=== PATIENT | male | born 1950 | race Hispanic/Latino ===

== ENCOUNTER 2019-03-04 08:51 | Inpatient (IN) | payer OTHER ==
--- NOTE | 2019-03-04 09:28 | RAD REPORT ---
EXAM DESCRIPTION: RAD - Chest Single View - 03/04/2019 9:20 am CLINICAL HISTORY: fall Chest pain. COMPARISON: CHEST SINGLE VIEW dated 01/18/2013; CHEST PA AND LAT 2 VIEW dated 03/11/2010; CHEST SINGLE VIEW dated 10/25/2009; ABDOMEN ACUTE SERIES dated 09/06/2005 FINDINGS: Portable technique limits examination quality. The lungs appear underinflated with mild elevation of the right hemidiaphragmatic leaflet. The heart is normal in size. No displaced fractures.
[2019-03-04] MEDS ORDERED: HYDRALAZINE HCL 20 MG/ML VIAL ONE (09:33)
[2019-03-04 09:39] LABS: Absolute Lymphocytes (CBC) 2.4 K/uL (0.7-4.9); Basophils % 0.4 % (0-1.3); Eosinophils % 0.2 % (0-4.4); Hematocrit 46.1 % (39.6-49.0); Lymphocytes % 26.9 % (15.3-44.8); MPV 9.1 fL (7.6-11.3); Monocytes % 19.8 % (3.3-12.3); RBC Red Blood Cell Count 4.63 M/uL (4.33-5.43)
[2019-03-04 09:40] LABS: Protime INR 1.02
[2019-03-04 10:01] LABS: ALT/SGPT 26 U/L (12-78); AST/SGOT 26 U/L (15-37); Albumin 3.8 g/dL (3.4-5.0); Alkaline Phosphatase 69 U/L (45-117); BUN Blood Urea Nitrogen 28 mg/dL (7-18); Bicarbonate 29 mmol/L (21-32); Bilirubin Direct 0.2 mg/dL (0-0.2); Bilirubin Total 0.7 mg/dL (0.2-1.0); Glucose Level 99 mg/dL (74-106); Magnesium 1.8 mg/dL (1.8-2.4); NT PRO-BNP 236 pg/mL (<125); Protein, Total 7.9 g/dL (6.4-8.2); Sodium Level 138 mmol/L (136-145); Troponin (Emerg Dept Use Only) < 0.02 ng/mL (0.0-0.045)
[2019-03-04 10:16] LABS: Blood Morphology Comment NOT SEEN (NOT SEEN); Platelet Estimate ADEQ
[2019-03-04 10:24] LABS: Potassium 5.6 mmol/L (3.5-5.1)
--- NOTE | 2019-03-04 10:51 | EDPHYS ---
Physician Documentation [facility] Name: Geraldo Solis Age: 68 yrs Sex: Male : 1950 Arrival Date: 03/04/2019 Time: 08:54 Bed 2 Private MD: ED Physician Gilbert Anthony HPI: 03/04 09:05 This 68 yrs old Male presents to ER via EMS with complaints of General cp Weakness. 09:05 Details of fall: The patient fell from an upright position, while standing. cp 09:05 Onset: The symptoms/episode began/occurred today. Associated injuries: The patient cp sustained no obvious injury. Patient c/o general weakness. Historical: - Allergies: 08:59 No Known Allergies; sv - Home Meds: 12:15 atorvastatin 20 mg Oral tab 1 tab once daily [Active]; carbidopa-levodopa 25-100 mg ae4 Oral tab 1 tab 3 times per day [Active]; repaglinide 2 mg Oral tab 1 tab 2 times per day [Active]; - PMHx: 08:59 Parkinsons; Bipolar disorder; sv - PSHx: 08:59 left knee; arm surgery - right; sv - Immunization history:: Adult Immunizations up to date. - Social history:: Smoking status: Patient/guardian denies using tobacco, Patient/guardian denies using. - Ebola Screening: : Patient negative for fever greater than or equal to 101.5 degrees Fahrenheit, and additional compatible Ebola Virus Disease symptoms Patient denies travel to an Ebola-affected area in the 21 days before illness onset. ROS: 09:10 Constitutional: Negative for body aches, chills, fever, poor PO intake. cp 09:10 Eyes: Negative for injury, pain, redness, and discharge. cp 09:10 ENT: Negative for drainage from ear(s), ear pain, sore throat, difficulty swallowing, difficulty handling secretions. 09:10 Cardiovascular: Negative for chest pain, edema. 09:10 Respiratory: Negative for cough, shortness of breath, wheezing. 09:10 Abdomen/GI: Negative for abdominal pain, nausea, vomiting, and diarrhea, constipation, anorexia, black/tarry stool, rectal bleeding. 09:10 Back: Negative for pain at rest, pain with movement. 09:10 : Negative for urinary symptoms. 09:10 Skin: Negative for cellulitis, rash. 09:10 Neuro: Positive for general weakness, Negative for altered mental status, headache, loss of consciousness, syncope. 09:10 All other systems are negative. Exam: 09:20 Constitutional: The patient appears in no acute distress, alert, awake, cp non-diaphoretic, non-toxic, well developed, well nourished. 09:20 Head/Face: Normocephalic, atraumatic. cp 09:20 Eyes: Periorbital structures: appear normal, Pupils: equal, round, and reactive to light and accomodation, Extraocular movements: intact throughout, Conjunctiva: normal, no exudate, no injection, Sclera: no appreciated abnormality, Lids and lashes: appear normal, bilaterally. 09:20 ENT: External ear(s): are unremarkable, Ear canal(s): are normal, clear, TM's: are normal, no evidence of bulging, no erythema, Nose: is normal, Mouth: Lips: moist, Oral mucosa: pink and intact, moist, Posterior pharynx: is normal, airway is patent, no erythema, no exudate. 09:20 Neck: C-spine: vertebral tenderness, is not appreciated, crepitus, is not appreciated, ROM/movement: is normal, is supple, without pain, no range of motions limitations, no nuchal rigidity. 09:20 Chest/axilla: Inspection: normal, Palpation: is normal, no crepitus, no tenderness. 09:20 Cardiovascular: Rate: actual rate is 62 bpm, Rhythm: regular, Edema: is not appreciated, JVD: is not appreciated. 09:20 Respiratory: the patient does not display signs of respiratory distress, Respirations: normal, no use of accessory muscles, no retractions, no splinting, no tachypnea, labored breathing, is not present, Breath sounds: are clear throughout, no decreased breath sounds, no stridor, no wheezing. 09:20 Abdomen/GI: Inspection: abdomen appears normal, Bowel sounds: active, all quadrants, Palpation: abdomen is soft and non-tender, in all quadrants, rebound tenderness, is not appreciated, involuntary guarding, is not appreciated. 09:20 Back: pain, is absent, ROM is normal. 09:20 Skin: no rash present. 09:20 Neuro: Orientation: to person, place \T\ time. Mentation: is normal, Motor: moves all fours, general weakness w/o focal deficits, Sensation: no obvious gross deficits, Abnormal movements: resting tremor, is located in the right arm and left arm. 10:01 ECG was reviewed by the Attending Physician. Vital Signs: 08:59 BP 166 / 47; Pulse 62; Resp 18; Pulse Ox 99% ; sv 09:02 Temp 97.4(T); ms 09:51 BP 107 / 83; Pulse 63; Resp 22; Pulse Ox 99% on R/A; tw2 10:45 BP 131 / 90; Pulse 53; Resp 19; Pulse Ox 95% on R/A; ae4 11:15 BP 104 / 79; Pulse 57; Resp 18; Pulse Ox 96% on R/A; ae4 12:16 BP 112 / 78; Pulse 59; Resp 18; Pulse Ox 100% on R/A; ae4 MDM: 08:54 Patient medically screened. 10:40 Data reviewed: vital signs, nurses notes, lab test result(s), EKG, radiologic studies, cp plain films. 10:40 Test interpretation: by ED physician or midlevel provider: ECG, plain radiologic cp studies. Counseling: I had a detailed discussion with the patient and/or guardian regarding: the historical points, exam findings, and any diagnostic results supporting the discharge/admit diagnosis, lab results, radiology results, the need for further work-up and treatment in the hospital. 10:41 Physician consultation: Fernando Stone DO was called at 10:41, was contacted at 10:41, regarding admission, to the telemetry unit. patient's condition, and will see patient in ED. 03/04 09:02 Order name: Basic Metabolic Panel; Complete Time: 10:26 03/04 10:40 Interpretation: Normal except: BUN 28; GFR 60. 03/04 09:02 Order name: CBC with Diff; Complete Time: 10:26 03/04 09:47 Interpretation: Normal except: MCV 99.4; PLT 144; MN% 19.8; MNA 1.8. 03/04 09:02 Order name: LFT's; Complete Time: 10:26 03/04 09:02 Order name: Magnesium; Complete Time: 10:26 03/04 09:02 Order name: NT PRO-BNP; Complete Time: 10:26 03/04 10:30 Interpretation: Abnormal: NT PRO-BNP 236. cp 03/04 09:02 Order name: PT-INR; Complete Time: 10:26 03/04 09:02 Order name: Troponin (emerg Dept Use Only); Complete Time: 10:26 03/04 09:02 Order name: XRAY Chest (1 view); Complete Time: 09:47 03/04 09:05 Order name: Urine Microscopic Only 03/04 09:49 Order name: Urine Dipstick--Ancillary (enter results) 03/04 10:18 Order name: Manual Differential; Complete Time: 10:26 EDMS 03/04 09:02 Order name: EKG; Complete Time: 09:04 03/04 09:02 Order name: Cardiac monitoring; Complete Time: 09:04 03/04 09:02 Order name: EKG - Nurse/Tech; Complete Time: 09:04 03/04 09:02 Order name: IV Saline Lock; Complete Time: 09:04 03/04 09:02 Order name: Labs collected and sent; Complete Time: 09:05 03/04 09:02 Order name: O2 Per Protocol; Complete Time: 09:05 03/04 09:02 Order name: O2 Sat Monitoring; Complete Time: 09:05 03/04 09:05 Order name: Urine Dipstick-Ancillary (obtain specimen); Complete Time: 09:44 03/04 11:03 Order name: EKG Electrocardiogram; Complete Time: 11:08 EDMS EC:01 Rate is 59 beats/min. QRS interval is normal. QT interval is normal. Interpreted by me. cp Reviewed by me. Administered Medications: 09:19 Drug: hydrALAZINE 5 mg Route: IV; Rate: bolus; Site: right antecubital; ae4 09:35 Follow up: IV Status: Completed infusion ae4 11:04 Drug: Albuterol 2.5 mg Route: Inhalation; ae4 11:07 Drug: D50W 50 ml Route: IVP; Site: right antecubital; ae4 13:18 Follow up: Response: No adverse reaction tw2 11:13 Drug: Lasix 20 mg Route: IVP; Site: right antecubital; ae4 11:52 Follow up: Response: Other; 200 mls urine output in urinal ae4 11:13 Drug: NS 0.9% 250 ml Route: IV; Rate: bolus; Site: right antecubital; ae4 11:51 Follow up: IV Status: Completed infusion ae4 11:15 Drug: Insulin Regular Human 5 units {Co-Signature: tw2 (Amarilis Clemons RN).} Route: IVP; ae4 Site: right antecubital; 13:19 Follow up: Response: No adverse reaction tw2 11:24 Drug: Kayexalate 30 grams Route: PO; ae4 12:25 Follow up: Response: Other; No bowel at time prior to admission to floor. ae4 11:25 Drug: Albuterol 2.5 mg Route: Inhalation; ae4 11:25 Drug: Albuterol 2.5 mg Route: Inhalation; ae4 11:40 Drug: NS 0.9% 1000 ml Route: IV; Rate: 100 ml/hr; Site: right antecubital; ae4 12:25 Follow up: 900 mls urine output in urinal ae4 12:26 Follow up: IV Status: Infusion continued upon admission ae4 13:08 Follow up: IV Status: Infusion continued upon admission tw2 Disposition: 03/05 07:35 Co-signature as Attending Physician, Gilbert Anthony MD I agree with the assessment and kdr plan of care. Disposition: 03/04/19 10:50 Hospitalization ordered by Fernando Stone for Observation. Preliminary diagnosis are Unspecified atrial flutter, Hyperkalemia. - Bed requested for Telemetry/MedSurg (observation). - Status is Observation. tw2 - Condition is Stable. - Problem is new. - Symptoms have improved. UTI on Admission? No Signatures: Dispatcher [employer] EDMS Bárbara Alexander RN RN sv Rittger, Kevin, MD MD kdr Juliocesar San PA PA cp Wise, Tara, RN RN tw2 Natalie Vigil Andrea, RN RN ae4 Amarilis Clemons RN tw2 Corrections: (The following items were deleted from the chart) 03/04 09:47 09:47 Normal except: MCV 99.4; PLT 144; MN% 19.8. cp cp 10:40 10:27 Normal except: K 5.6; BUN 28; GFR 60. cp cp 12:10 10:50 Hospitalization Ordered by Fernando Stone DO for Observation. Preliminary eb diagnosis is Unspecified atrial flutter; Hyperkalemia. Bed requested for Telemetry/MedSurg (observation). Status is Observation. Condition is Stable. Problem is new. Symptoms have improved. UTI on Admission? No. cp 13:19 12:10 03/04/2019 10:50 Hospitalization Ordered by Fernando Stone DO for Observation. tw2 Preliminary diagnosis is Unspecified atrial flutter; Hyperkalemia. Bed requested for Telemetry/MedSurg (observation). Status is Observation. Condition is Stable. Problem is new. Symptoms have improved. UTI on Admission? No. eb
--- NOTE | 2019-03-04 10:51 | ER ---
Nurse's Notes [facility] Name: Geraldo Solis Age: 68 yrs Sex: Male : 1950 Arrival Date: 03/04/2019 Time: 08:54 Bed 2 Private MD: Diagnosis: Unspecified atrial flutter;Hyperkalemia Presentation: 03/04 08:47 Presenting complaint: EMS states: called out for lift assist at first and did vitals on sv pt. Manual BP 180/100 HR-50-200 O2 sat 90-95%, A\T\O x4. Transition of care: patient was not received from another setting of care. Onset of symptoms was March 04, 2019. Care prior to arrival: Glucose check: 92. 08:47 Method Of Arrival: EMS: [facility] sv 08:47 Acuity: MARKO 3 sv 12:13 Risk Assessment: Do you want to hurt yourself or someone else? Patient reports no ae4 desire to harm self or others. Initial Sepsis Screen: Does the patient meet any 2 criteria? No. Patient's initial sepsis screen is negative. Does the patient have a suspected source of infection? No. Patient's initial sepsis screen is negative. Triage Assessment: 12:11 General: Appears uncomfortable, slender, Behavior is cooperative, Patient's hands are ae4 shaking, patient also states he has Parkinson's.. Pain: Denies pain. EENT: No signs and/or symptoms were reported regarding the EENT system. Neuro: Level of Consciousness is awake, alert, obeys commands, Oriented to person, place, situation, Appropriate for age. Cardiovascular: Heart tones S1 S2 present Skin is cool and dry. Respiratory: Airway is patent Respiratory effort is even, unlabored, Respiratory pattern is regular, symmetrical. GI: Abdomen is round. : Urine is clear, Cathleen. Derm: Skin is pale. Musculoskeletal: Reports Overall weakness and stumbling over the last few days. Historical: - Allergies: 08:59 No Known Allergies; sv - Home Meds: 12:15 atorvastatin 20 mg Oral tab 1 tab once daily [Active]; carbidopa-levodopa 25-100 mg ae4 Oral tab 1 tab 3 times per day [Active]; repaglinide 2 mg Oral tab 1 tab 2 times per day [Active]; - PMHx: 08:59 Parkinsons; Bipolar disorder; sv - PSHx: 08:59 left knee; arm surgery - right; sv - Immunization history:: Adult Immunizations up to date. - Social history:: Smoking status: Patient/guardian denies using tobacco, Patient/guardian denies using. - Ebola Screening: : Patient negative for fever greater than or equal to 101.5 degrees Fahrenheit, and additional compatible Ebola Virus Disease symptoms Patient denies travel to an Ebola-affected area in the 21 days before illness onset. Screenin:15 Abuse screen: Denies threats or abuse. Nutritional screening: No deficits noted. ae4 Tuberculosis screening: No symptoms or risk factors identified. Fall Risk No fall in past 12 months (0 pts). No secondary diagnosis (0 pts). IV access (20 points). Ambulatory Aid- None/Bed Rest/Nurse Assist (0 pts). Gait- Weak (10 pts.). Mental Status- Oriented to own ability (0 pts). Assessment: 09:52 Reassessment: Patient appears in no apparent distress at this time. Patient and/or tw2 family updated on plan of care and expected duration. Pain level reassessed. Patient is alert, oriented x 3, equal unlabored respirations, skin warm/dry/pink. 10:10 Reassessment: Patient appears more relaxed, and daughter at bedside. Patient ae4 states feeling better. Patient states symptoms have improved. 11:57 Reassessment: Patient and/or family updated on plan of care and expected duration. Pain ae4 level reassessed. Urine output of 200mls in urinal. Daughter at bedside. Patient states feeling better. Patient states symptoms have improved. 12:18 Reassessment: Patient states feeling better. Neuro: Level of Consciousness is awake, ae4 alert, obeys commands. 12:19 Reassessment: Patient and/or family updated on plan of care and expected duration. Pain ae4 level reassessed. Patient is alert, oriented x 3, equal unlabored respirations, skin warm/dry/pink. 12:24 Reassessment: 900 mls urine output in urinal. ae4 12:33 Reassessment: Called 4th floor to give report to receiving nursePanchito will be the nurse and just left for lunch to wait a few minutes. Vital Signs: 08:59 BP 166 / 47; Pulse 62; Resp 18; Pulse Ox 99% ; sv 09:02 Temp 97.4(T); ms 09:51 BP 107 / 83; Pulse 63; Resp 22; Pulse Ox 99% on R/A; tw2 10:45 BP 131 / 90; Pulse 53; Resp 19; Pulse Ox 95% on R/A; ae4 11:15 BP 104 / 79; Pulse 57; Resp 18; Pulse Ox 96% on R/A; ae4 12:16 BP 112 / 78; Pulse 59; Resp 18; Pulse Ox 100% on R/A; ae4 ED Course: 08:54 Patient arrived in ED. ae4 08:54 Juliocesar San PA is PHCP. cp 08:54 Gilbert Anthony MD is Attending Physician. cp 08:59 Triage completed. sv 09:01 Initial lab(s) drawn, by me, sent to lab. EKG done, by ED staff, reviewed by Gilbert Anthony MD. Inserted saline lock: 22 gauge in right antecubital area, using aseptic technique. Blood collected. Missed attempt(s): 22 gauge in left antecubital area. Bleeding controlled, band aid applied, catheter tip intact. 09:02 Arm band placed on. sv 09:13 Duncan Salter, YEYO is Primary Nurse. ae4 09:22 XRAY Chest (1 view) In Process Unspecified. EDMS 09:46 Urine collected: clean catch specimen, clear. ms 10:15 Placed in gown. Bed in low position. Call light in reach. Side rails up X 1. Adult w/ ae4 patient. hall monitor on. Pulse ox on. NIBP on. Warm blanket given. 10:49 Fernando Stone DO is Hospitalizing Provider. cp 10:59 Repeat ekg was done. sm3 13:07 No provider procedures requiring assistance completed. Patient admitted, IV remains in tw2 place. Administered Medications: 09:19 Drug: hydrALAZINE 5 mg Route: IV; Rate: bolus; Site: right antecubital; ae4 09:35 Follow up: IV Status: Completed infusion ae4 11:04 Drug: Albuterol 2.5 mg Route: Inhalation; ae4 11:07 Drug: D50W 50 ml Route: IVP; Site: right antecubital; ae4 13:18 Follow up: Response: No adverse reaction tw2 11:13 Drug: Lasix 20 mg Route: IVP; Site: right antecubital; ae4 11:52 Follow up: Response: Other; 200 mls urine output in urinal ae4 11:13 Drug: NS 0.9% 250 ml Route: IV; Rate: bolus; Site: right antecubital; ae4 11:51 Follow up: IV Status: Completed infusion ae4 11:15 Drug: Insulin Regular Human 5 units {Co-Signature: tw2 (Amarilis Clemons RN).} Route: IVP; ae4 Site: right antecubital; 13:19 Follow up: Response: No adverse reaction tw2 11:24 Drug: Kayexalate 30 grams Route: PO; ae4 12:25 Follow up: Response: Other; No bowel at time prior to admission to floor. ae4 11:25 Drug: Albuterol 2.5 mg Route: Inhalation; ae4 11:25 Drug: Albuterol 2.5 mg Route: Inhalation; ae4 11:40 Drug: NS 0.9% 1000 ml Route: IV; Rate: 100 ml/hr; Site: right antecubital; ae4 12:25 Follow up: 900 mls urine output in urinal ae4 12:26 Follow up: IV Status: Infusion continued upon admission ae4 13:08 Follow up: IV Status: Infusion continued upon admission tw2 Intake: Outcome: 10:50 Decision to Hospitalize by Provider. cp 13:07 Admitted to Med/surg accompanied by tech, via wheelchair, room 419, Report called to tw2 YEYO Garcia 13:07 Condition: stable 13:07 Instructed on the need for admit. 13:19 Patient left the ED. tw2 Signatures: Dispatcher [employer] EDMS Bárbara Alexander RN RN sv Solis, Maria ms Juliocesar San, PA PA cp Amarilis Clemons RN RN tw2 Yakelin Cason [facility] Duncan Salter RN RN ae4 Amarilis Clemons RN tw2 Corrections: (The following items were deleted from the chart) 12:19 12:18 Reassessment: No changes from previously documented assessment. Patient and/or ae4 family updated on plan of care and expected duration. Pain level reassessed. ae4
[2019-03-04 11:13] LABS: Urine Bacteria <20 /HPF (NONE SEEN); Urine Culture Reflex Order NOT NEEDED; Urine RBC <5 /HPF (NONE SEEN)
[2019-03-04] MEDS ORDERED: FUROSEMIDE 20 MG/ 2ML VIAL ONE (11:15)
[2019-03-04] MEDS ORDERED: INSULIN -REGULAR HUMAN 50 UNIT/0.5 ML ML ONE (11:16)
[2019-03-04] MEDS ORDERED: SOD POLYSTYREN SUL 15 GM/60 ML UCUP ONE (11:16)
[2019-03-04] MEDS ORDERED: ALBUTEROL 2.5 MG/3 ML NEB SOL ONE (11:16)
[2019-03-04] MEDS ORDERED: D50W 25 GM/50 ML SYRINGE IV ONE (11:17)
[2019-03-04] MEDS ORDERED: NA CHLORIDE 0.9% 1,000 ML ONE (11:26)
--- NOTE | 2019-03-04 12:04 | P.HP ---
Certification for Inpatient Patient admitted to: Observation With expected LOS: <2 Midnights Patient will require the following post-hospital care: Home Health Services Practitioner: I am a practitioner with admitting privileges, knowledge of patient current condition, hospital course, and medical plan of care. Services: Services provided to patient in accordance with Admission requirements found in Title 42 Section 412.3 of the Code of Federal Regulations Patient History Date of Service: 03/04/19 Primary Care Provider: Dr. Mueller; [facility] Reason for admission: Fatigue, poor intake History of Present Illness: 68-year-old male presents to the emergency room with fatigue and poor intake. Patient with history of diabetes, bipolar disorder, Parkinson's, dementia and hypertension. Patient reports increased fatigue over the last week. He has been sleeping a lot. He denies any chest pain, shortness of breath. He has not been able to ambulate well. Patient denies any nausea, vomiting, diarrhea or constipation. Medications had been recently adjusted. This includes carbidopa levodopa. Due to his lack of appetite and increased fatigue patient came to the ER for further evaluation. In the ER patient evaluated. Patient was found to have a flutter with AV conversion. Patient was monitored and patient converted to normal sinus rhythm without medication. Lab shows white count 9.0, hemoglobin 15. Sodium 138, potassium 5.6. BUN of 28, creatinine 1.2 with a GFR 60. Glucose 99. Chest x- ray unremarkable. Urinalysis unremarkable. Troponin unremarkable. Patient was given medication for elevated potassium. Patient was admitted for evaluation and treatment When I saw the patient the ER, he appeared weak. at bedside. Patient in normal sinus rhythm. No prior history of atrial fibrillation. He reports having a heart catheterization about 5 years ago which was negative. He denies any palpitations. Allergies No Known Allergies Allergy (Unverified 11/08/11 10:08) Home medications list reviewed: Yes Home Medications: Atorvastatin Calcium [Lipitor*] 10 mg PO DAILY 01/18/13 Citalopram [Celexa*] 40 mg PO DAILY 01/18/13 Divalproex Sodium [Depakote ER] 1,500 mg PO BEDTIME 01/18/13 Divalproex Sodium [Depakote ER] 250 mg PO BEDTIME 01/18/13 Furosemide [Lasix*] 40 mg PO DAILY 01/18/13 Glimepiride [Amaryl*] 2 mg PO DAILY 01/18/13 Irbesartan [Avapro*] 150 mg PO DAILY 01/18/13 Risperidone [Risperdal] 2 mg PO BEDTIME 01/18/13 Saxagliptin HCl/Metformin HCl [Kombiglyze Xr 5-1,000 mg Tab] 1 each PO DAILY Rivaroxaban [Xarelto*] 15 mg PO BID #0 tablet 01/20/13 - Past Medical/Surgical History Diabetic: Yes -: Diabetes mellitus type 2 -: Hypertension -: Parkinson's -: Bipolar disorder -: Dementia -: Arm surgery -: Left knee replacement Psychosocial/ Personal History: Patient is . Lives at home. Patient has home care provider. - Family History Family History: Reviewed- Non-Contributory - Family History Mother -: Other (see notes) (Parkinson's) - Social History Smoking Status: Never smoker Alcohol use: No CD- Drugs: No Caffeine use: Yes Place of Residence: Home Review of Systems General: Weakness, As per HPI Eyes: Unremarkable ENT: Unremarkable Respiratory: Unremarkable Cardiovascular: As per HPI Gastrointestinal: Unremarkable Genitourinary: Unremarkable Musculoskeletal: Unremarkable Integumentary: Unremarkable Neurological: Weakness, As per HPI Lymphatics: Unremarkable Physical Examination - Physical Exam General: Alert, In no apparent distress, Oriented x3, Cooperative HEENT: Atraumatic, Normocephalic, PERRLA, Other (Dry mucous membranes and lips) Neck: Supple, No Thyromegaly Respiratory: Clear to auscultation bilaterally, Normal air movement Cardiovascular: Normal pulses, Regular rate/rhythm Gastrointestinal: Normal bowel sounds, Soft and benign, Non-distended, No tenderness, No masses, No rebound, No guarding Musculoskeletal: No erythema, No tenderness, No warmth Integumentary: No tenderness/swelling, No erythema, No warmth, No cyanosis, Other (Dry skin) Neurological: Normal speech, Normal strength at 5/5 x4 extr, Normal tone, Normal affect, Other (cogwheel rigidity. Mild tremor) - Studies Laboratory Data (last 24 hrs) 03/04/19 09:21: PT 12.0, INR 1.02 03/04/19 09:21: WBC 9.0, Hgb 15.7, Hct 46.1, Plt Count 144 L 03/04/19 09:21: Sodium 138, Potassium 5.6 H*, BUN 28 H, Creatinine 1.20, Glucose 99, Magnesium 1.8, Total Bilirubin 0.7, AST 26, ALT 26, Alkaline Phosphatase 69 Assessment and Plan - Plan Impression: Fatigue secondary to new onset paroxysmally atrial fibrillation now normal sinus rhythm Dehydration with poor oral intake Hypertension Diabetes mellitus type 2 Parkinson's Bipolar disorder Dementia Peripheral vascular disease Plan: Fatigue secondary to new onset paroxysmally atrial fibrillation now normal sinus rhythm: Will admit the patient to further evaluate. Patient now in normal sinus rhythm. Patient appears stable but dry. Will start IV fluids. Will check echocardiogram. Cardiology consulted to further evaluate. Will start Lovenox at 1 milligram/kilogram subcu twice daily. Await further recommendations from cardiology. Will restart his propanolol that he takes for hypertension and Parkinson's. Dehydration with poor oral intake: Will provide IV fluids. Will provide supplementation. Encourage oral intake. Hypertension: Continue medication Diabetes mellitus type 2: Monitor accuchecks. Parkinson's: Continue meds. Bipolar disorder: Continue meds Dementia: Continue meds Peripheral vascular disease: Continue meds Discharge Plan: Home Plan to discharge in: 24 Hours - Advance Directives Does patient have a Living Will: No Does patient have a Durable POA for Healthcare: No - Code Status/Comfort Care Code Status Assessed: Yes (patient is full code) Time Spent Managing Pts Care (In Minutes): 55
[2019-03-04] MEDS ORDERED: ONDANSETRON 4 MG/2 ML VIAL IV PRN (13:16)
[2019-03-04] MEDS: INSULIN -REGULAR HUMAN 50 UNIT/0.5 ML ML SQ SCH ×3 (13:16→20:24)
[2019-03-04] MEDS ORDERED: DIVALPROEX ER 250 MG TAB PO SCH (13:16)
[2019-03-04] MEDS ORDERED: ACETAMINOPHEN 500 MG TAB PO PRN (13:16)
[2019-03-04] MEDS ORDERED: MAGNESIUM SULFATE 1 gm IVPB 1 GM/100 ML BAG IV ONE (13:22)
[2019-03-04] MEDS ORDERED: D50W 25 GM/50 ML SYRINGE IV PRN (13:23)
[2019-03-04] MEDS ORDERED: GLUCAGON 1 MG/VIAL IM PRN (13:23)
[2019-03-04] MEDS: NA CHLORIDE 0.9% 1,000 ML IV SCH (13:35)
[2019-03-04] MEDS: ENSURE ENLIVE 237 ML CAN PO SCH ×2 (13:35→20:17)
[2019-03-04 13:41] VITALS: BMI 29.7
--- NOTE | 2019-03-04 13:50 | EKG ---
Test Date: 2019-03-04 Test Time: 10:34:08 Timber Trimmer: IVAN MEASUREMENT RESULTS: Intervals: Rate: 58 SC: 162 QRSD: 76 QT: 396 QTc: 388 [place]: P: 37 SC: 162 QRS: 0 T: 104 INTERPRETIVE STATEMENTS: Sinus bradycardia Inferior infarct, age undetermined Possible Anterolateral infarct, age undetermined Abnormal ECG Compared to ECG 03/04/2019 08:50:26 Atrial flutter no longer present Left-axis deviation no longer present Myocardial infarct finding still present Electronically Signed On 03-04-19 13:49:38 CDT by Jamal Young
--- NOTE | 2019-03-04 13:51 | EKG ---
Test Date: 2019-03-04 Test Time: 08:50:26 Professor Of Surgery: ISABEL MEASUREMENT RESULTS: Intervals: Rate: 59 NV: QRSD: 66 QT: 418 QTc: 413 [place]: P: -12 NV: QRS: -36 T: 111 INTERPRETIVE STATEMENTS: Sinus bradycardia Low voltage QRS Left axis deviation Inferior infarct, age undetermined Anterolateral infarct, age undetermined Abnormal ECG Compared to ECG 01/18/2013 08:13:43 Left-axis deviation now present Myocardial infarct finding now present Sinus rhythm no longer present Electronically Signed On 03-04-19 13:50:36 CDT by Jamal Young
[2019-03-04 14:01] LABS: Thyroid Stimulating Hormone 2.74 uIU/mL (0.360-3.740)
[2019-03-04] MEDS ORDERED: PNEUMOCOCCAL VACCINE 0.5 ML IMVAC ONE (15:00)
[2019-03-04] MEDS: ENOXAPARIN 80 MG/0.8 ML SQ SCH ×2 (15:01→21:00)
--- NOTE | 2019-03-04 15:02 | EKG ---
Test Date: 2019-03-04 Test Time: 13:52:00 Drafting Layout Man: IVAN MEASUREMENT RESULTS: Intervals: Rate: 58 SC: 150 QRSD: 72 QT: 424 QTc: 416 [place]: P: 27 SC: 150 QRS: -57 T: 116 INTERPRETIVE STATEMENTS: Sinus bradycardia Left axis deviation Inferior infarct, age undetermined Anterolateral infarct, age undetermined Abnormal ECG Compared to ECG 03/04/2019 10:34:08 Left-axis deviation now present Myocardial infarct finding still present Electronically Signed On 03-04-19 15:01:36 CDT by Jamal Young
[2019-03-04 15:11] LABS: Urine Appearance CLEAR; Urine Bilirubin NEGATIVE (NEG); Urine Blood NEGATIVE (NEG); Urine Color YELLOW; Urine Glucose NEGATIVE (NEG); Urine Protein NEGATIVE (NEG); Urine Specific Gravity <=1.005 (1.005-1.030); Urine pH 5.5 (5.0-7.0)
[2019-03-04 15:16] LABS: Urine Microscopic Reflex NO UMIC
--- NOTE | 2019-03-04 15:21 | ECHO ---
HEIGHT: 5 ft 3 in WEIGHT: 168 lb 0 oz DATE OF STUDY: 03/04/[address]: Fernando Stone DO 2-DIMENSIONAL: YES M.MODE: YES DOPPLER: YES COLOR FLOW: YES TDS: NO PORTABLE: NO DEFINITY: NO BUBBLE STUDY: NO DIAGNOSIS: ATRIAL FIBRILLATION CARDIAC HISTORY: CATHERIZATION: NO SURGERY: NO PROSTHETIC VALVE: NO PACEMAKER: NO MEASUREMENTS (cm) DIASTOLIC (NORMALS) SYSTOLIC (NORMALS) IVSd 1.0 (0.6-1.2) LA Diam 3.9 (1.9-4.0) LVEF 76% LVIDd 4.0 (3.5-5.7) LVIDs 2.2 (2.0-3.5) %FS 44% LVPWd 1.0 (0.6-1.2) Ao Diam 2.8 (2.0-3.7) 2 DIMENSIONAL ASSESSMENT: RIGHT ATRIUM: NORMAL LEFT ATRIUM: NORMAL RIGHT VENTRICLE: NORMAL LEFT VENTRICLE: NORMAL TRICUSPID VALVE: NORMAL MITRAL VALVE: NORMAL PULMONIC VALVE: NORMAL AORTIC VALVE: NORMAL PERICARDIAL EFFUSION: NONE AORTIC ROOT: NORMAL LEFT VENTRICULAR WALL MOTION: NORMAL. DOPPLER/COLOR FLOW: PHYSIOLOGICAL TRICUSPID REGURGITATION. NORMAL RIGHT VENTRICULAR SYSTOLIC PRESSURE. COMMENTS: NORMAL 2D ECHOCARDIOGRAPHY WITH DOPPLER. NORMAL SINUS RHYTHM. TECHNOLOGIST: [facility]
[2019-03-04 16:00] LABS: CKMB Creatine Kinase MB < 1.0 ng/mL (0.3-3.6); Creatine Phosphokinase 47 U/L (39-308); Troponin I < 0.02 ng/mL (0.0-0.045)
--- NOTE | 2019-03-04 18:51 | CON ---
History Of Present Illness: Mr. Solis is 68. He is brought to the hospital because he fell. I am ask ed to see him because the ER doctors say he had atrial fib but is not recorded on any rhythm strips a t least any that I could see. The patient has no history of heart disease. No history of atrial fib rillation. He has had Parkinson disease for some time. He has become very depressed, bedridden now. He spends most of his time sleeping. When he gets up he is very lightheaded and dizzy, often falls . When his Parkinson disease specialist, Dr. Arnold in [place] heard this, he reduced the dose of his carbidopa/levodopa, but it has not made much difference. The patient takes citalopram, atorvasta tin, Seroquel, metformin, divalproex, ipratropium, carbidopa/levodopa, rivastigmine and propranolol. He has never had myocardial infarction, stroke, or bypass surgery. Uses no tobacco and he has a mil d case of diabetes, taking metformin alone. Blood sugars do not seem to be a problem controlling the m, keeping them in normal range. Denies having chest pain. When he stands up, he often gets lighthe aded. Physical Examination: General: He is 5 feet 3 inches, 168 pounds. He is alert, oriented, pleasant, cooperative, admits to being very depressed. HEENT: Normal. Lungs: Clear. Heart: Exam is within normal limits. Neuro: Reveals very depressed affect. Mild non-intention pablito mor consistent with Parkinson disease. His EKG shows low voltage, possible old anterior inferior inf arcts, could be pseudo-infarcts related to the low voltage. Impression: The patient probably has orthostatic hypotension. I am not sure if he has atrial fibril lation or not. Certainly, it is possible but there is none recorded on anything to take action on Mr Kristi Soils who falls so much he would not be a candidate for taking long-term anticoagulation as I would recommend against that. If we see that he has paroxysmal atrial fibrillation, we could try to suppre ss it, but I would not go further than having him take aspirin as an anticoagulant based on his high risk of having trouble from bleeding if he were to fall. I think we should check orthostatic vital signs, consider giving him a medicine shot such as ProAmati ne to support his blood pressure. SH/MODL Voice ID: [id number] Report ID: [id number]
[2019-03-04] MEDS: QUETIAPINE 100MG TAB PO SCH (20:16)
[2019-03-04] MEDS: DIVALPROEX ER 250 MG TAB PO SCH (20:16)
[2019-03-04] MEDS: MEMANTINE HCL 10 MG TABLET PO SCH (20:16)
[2019-03-04] MEDS: ATORVASTATIN 10 MG TAB PO SCH (20:17)
[2019-03-04] MEDS: RIVASTIGMINE TARTRATE 1.5 MG PO SCH (20:21)
[2019-03-04 23:53] LABS: CKMB Creatine Kinase MB < 1.0 ng/mL (0.3-3.6); Creatine Phosphokinase 38 U/L (39-308); Troponin I < 0.02 ng/mL (0.0-0.045)
[2019-03-05] MEDS: NA CHLORIDE 0.9% 1,000 ML IV SCH (00:35)
[2019-03-05] MEDS ORDERED: ENOXAPARIN 80 MG/0.8 ML SQ SCH (03:00)
[2019-03-05 06:07] LABS: Absolute Lymphocytes (CBC) 2.9 K/uL (0.7-4.9); Basophils % 0.4 % (0-1.3); Eosinophils % 0.4 % (0-4.4); Hematocrit 40.9 % (39.6-49.0); Lymphocytes % 44.7 % (15.3-44.8); MPV 9.8 fL (7.6-11.3); RBC Red Blood Cell Count 4.16 M/uL (4.33-5.43)
[2019-03-05 06:10] LABS: Monocytes % 20.3 % (3.3-12.3)
[2019-03-05 06:15] LABS: Magnesium 2.2 mg/dL (1.8-2.4); Potassium 4.3 mmol/L (3.5-5.1)
[2019-03-05] MEDS: INSULIN -REGULAR HUMAN 50 UNIT/0.5 ML ML SQ SCH ×4 (07:30→21:00)
[2019-03-05] MEDS ORDERED: CITALOPRAM 10 MG TABLET PO SCH (09:00)
[2019-03-05] MEDS: ENSURE ENLIVE 237 ML CAN PO SCH ×3 (09:00→21:00)
[2019-03-05] MEDS: RIVASTIGMINE TARTRATE 1.5 MG PO SCH ×2 (09:22→21:30)
[2019-03-05] MEDS: MEMANTINE HCL 10 MG TABLET PO SCH ×2 (09:22→21:31)
[2019-03-05] MEDS: PANTOPRAZOLE 40MG TABLET PO SCH (09:23)
[2019-03-05] MEDS: DIVALPROEX ER 250 MG TAB PO SCH ×2 (09:23→21:31)
[2019-03-05] MEDS: QUETIAPINE 100MG TAB PO SCH ×2 (09:31→21:31)
[2019-03-05] MEDS: PROPRANOLOL HCL 60 MG SA CAP PO SCH (09:32)
[2019-03-05] MEDS: NACHLORIDE 0.45% 1,000 ML IV SCH (10:48)
--- NOTE | 2019-03-05 10:54 | PN ---
Mr. Solis's echocardiogram looks very good and his orthostatic changes, when he sits and stands, are n ot very dramatic, and I think the main thing wrong with Mr. Solis is that he just does not eat. He is terribly depressed and is withdrawn from life in general. Has a cardiology consult and I plan to si gn off the case. There are not any other cardiac issues to be addressed at this point. NICOLÁS/OXANA Voice ID: [id number] Report ID: [id number]
--- NOTE | 2019-03-05 11:48 | RAD REPORT ---
EXAM DESCRIPTION: RAD - Chest Pa And Lat (2 Views) - 03/05/2019 10:29 am CLINICAL HISTORY: follow up SOB Chest pain. COMPARISON: Chest Single View dated 03/04/2019; CHEST SINGLE VIEW dated 01/18/2013; CHEST PA AND LAT 2 VIEW dated 03/11/2010; CHEST SINGLE VIEW dated 10/25/2009 FINDINGS: Elevation of the right hemidiaphragm is seen. The lungs are grossly clear. The heart is no rmal in size. No displaced fractures.
--- NOTE | 2019-03-05 11:48 | RAD REPORT ---
EXAM DESCRIPTION: RAD - Thoracic Spine W obliques - 03/05/2019 10:35 am CLINICAL HISTORY: back pain Radiculopathy COMPARISON: No comparisons FINDINGS: The thoracic spine vertebral body heights and disc spaces are largely maintained. No acute compression fracture. No significant malalignment. IMPRESSION: Negative study.
--- NOTE | 2019-03-05 11:50 | RAD REPORT ---
EXAM DESCRIPTION: RAD - Lumbar Spine 3 Views - 03/05/2019 10:30 am CLINICAL HISTORY: back pain Radiculopathy COMPARISON: No comparisons FINDINGS: Vertebral body heights appear maintained. No compression fracture noted. Mild diffuse spon dylosis in the form of disc thinning with small endplate osteophytes throughout the lower lumbar leve ls. No spondylolysis or spondylolisthesis. Facet hypertrophy is present lower lumbar spine. Aortic atherosclerosis seen. IMPRESSION: Mild diffuse spondylosis of the lumbar spine without acute fracture seen.
--- NOTE | 2019-03-05 11:51 | RAD REPORT ---
EXAM DESCRIPTION: RAD - Pelvis - 03/05/2019 10:29 am CLINICAL HISTORY: Falls, Parkinsons Fall, trauma, pain COMPARISON: <Comparisons> FINDINGS: Osteoarthritic changes involve both hips. No acute fracture or dislocation evident.
--- NOTE | 2019-03-05 11:56 | RAD REPORT ---
EXAM DESCRIPTION: RAD - Hip Left 2 View - 03/05/2019 10:30 am CLINICAL HISTORY: fall, parkinsons COMPARISON: No comparisons FINDINGS: Mild osteoarthritis affects the left hip, mild to moderate. No acute fracture or dislocati on. No AVN.
--- NOTE | 2019-03-05 11:58 | RAD REPORT ---
EXAM DESCRIPTION: RAD - Hip Right 2 View - 03/05/2019 10:30 am CLINICAL HISTORY: fall, parkinsons COMPARISON: No comparisons FINDINGS: Mild osteoarthritis affects the right hip. No fracture, dislocation or AVN.
--- NOTE | 2019-03-05 12:50 | P.PN ---
Subjective Date of Service: 03/05/19 Primary Care Provider: Dr. Mueller; [facility] Chief Complaint: Fatigue, poor intake Subjective: Other (Patient appears improved. Patient better hydrated. Patient reports pain to the lower back region. Patient with falls at home.) Physical Examination - Vital Signs Temperature: 97.4 F Blood Pressure: 109/61 Pulse: 66 Respirations: 19 Pulse Ox (%): 93 - Physical Exam General: Alert, In no apparent distress, Oriented x3, Cooperative HEENT: Atraumatic Neck: Supple Respiratory: Clear to auscultation bilaterally, Normal air movement Cardiovascular: Normal pulses, Regular rate/rhythm Gastrointestinal: Normal bowel sounds, Soft and benign, Non-distended Neurological: Normal speech, Normal strength at 5/5 x4 extr, Normal tone, Other (Patient with tremors at rest and with action) Assessment & Plan Discharge Plan: Other (Home with home health verses inpatient rehab/skilled placement) Plan to discharge in: 48 Hours Physician Review Additional Text: Impression: Fatigue secondary to orthostatic hypotension Dehydration with poor oral intake Hypertension Diabetes mellitus type 2 Parkinson's Bipolar disorder Dementia Peripheral vascular disease Back pain with degenerative arthritis Plan: Fatigue secondary to orthostatic hypotension: Patient evaluated by Cardiology. Cardiology did not see any evidence of atrial fibrillation. Patient improved with IV fluids. Echocardiogram unremarkable. Case discussed with family. Patient encouraged to increase oral intake which he has done. Orthostatics have improved. Will have physical therapy assess ambulation. Patient high risk for fall. Will need to determine whether the patient can be safely discharged home versus inpatient rehab or skilled placement. Will continue to reassess. Will recheck after lunchtime to determine plan of care. Dehydration with poor oral intake: Improved with IV fluids. Encourage oral intake. Will provide supplementation. Encourage oral intake. Hypertension: Continue medication Diabetes mellitus type 2: Monitor accuchecks. Parkinson's with increased falls at home: Continue meds. Will need to assess ambulation. Patient may benefit with home health with physical therapy verses inpatient rehab versus skilled. Will check with physical therapy assessment today. Bipolar disorder: Continue meds Dementia: Continue meds Peripheral vascular disease: Continue meds Back pain with degenerative arthritis: X-ray shows no fracture. Patient with significant arthritis. Patient with increased fall risk. Has multiple falls at home. Physical therapy to assess. Time Spent Managing Pts Care (In Minutes): 55
[2019-03-05] MEDS ORDERED: TRAMADOL HCL 50 MG TAB PO PRN (13:43)
[2019-03-05] MEDS: CARBIDOPA/LEVODOPA 25/100 TAB PO SCH ×2 (15:51→21:31)
[2019-03-05] MEDS: HYDROCODONE/APAP 7.5/325 MG TAB PO PRN (15:52)
[2019-03-05] MEDS ORDERED: RIVASTIGMINE TARTRATE PO SCH (21:00)
[2019-03-05] MEDS ORDERED: QUETIAPINE FUMARATE PO SCH (21:00)
[2019-03-05] MEDS: ATORVASTATIN 10 MG TAB PO SCH (21:30)
[2019-03-06] MEDS: HYDROCODONE/APAP 7.5/325 MG TAB PO PRN ×2 (00:50→13:37)
[2019-03-06] MEDS: NACHLORIDE 0.45% 1,000 ML IV SCH (06:31)
[2019-03-06] MEDS: INSULIN -REGULAR HUMAN 50 UNIT/0.5 ML ML SQ SCH ×4 (07:30→21:37)
[2019-03-06] MEDS: PROPRANOLOL HCL 60 MG SA CAP PO SCH ×2 (09:00→11:00)
[2019-03-06] MEDS ORDERED: CITALOPRAM 10 MG TABLET PO SCH (09:00)
[2019-03-06] MEDS ORDERED: PROPRANOLOL HCL PO SCH (09:00)
--- NOTE | 2019-03-06 09:51 | P.PN ---
Subjective Date of Service: 03/06/19 Primary Care Provider: Dr. Mueller; [facility] Chief Complaint: Fatigue, poor intake Subjective: Other (Patient improving. Blood pressure low. Patient did work with physical therapy yesterday. Physical therapy recommended inpatient rehab.. ) Physical Examination - Vital Signs Temperature: 96.5 F Blood Pressure: 103/60 Pulse: 64 Respirations: 16 Pulse Ox (%): 95 - Physical Exam General: Alert, In no apparent distress, Oriented x3, Cooperative HEENT: Atraumatic, Other (Patient appears better hydrated) Neck: Supple Respiratory: Clear to auscultation bilaterally, Normal air movement Cardiovascular: Normal pulses, Regular rate/rhythm Gastrointestinal: Normal bowel sounds, Soft and benign, Non-distended Neurological: Normal speech, Normal strength at 5/5 x4 extr, Normal tone, Other (Mild tremor noted) - Studies Medications List Reviewed: Yes Assessment & Plan Discharge Plan: Other (Inpatient rehab) Plan to discharge in: 24 Hours Physician Review Additional Text: Impression: Fatigue secondary to orthostatic hypotension Dehydration with poor oral intake Hypertension Diabetes mellitus type 2 Parkinson's Bipolar disorder Dementia Peripheral vascular disease Back pain with degenerative arthritis Plan: Fatigue secondary to orthostatic hypotension with high risk for fall: Patient evaluated by Cardiology. Cardiology did not see any evidence of atrial fibrillation. Cardiology recommends no need for medication at this time. Echocardiogram unremarkable. Patient may require midodrine and if patient continue to be orthostatics. Will check orthostatics today. Continue with physical therapy. Physical therapy has recommended inpatient rehab. Will have social work help in this process tomorrow. Continue to work with gait. X-rays show no fracture but severe arthritis noted. Will continue with his Parkinson's medication. Anticipate discharge to inpatient rehab once approved likely in the next 24 hr. If patient not able to be approved for inpatient rehab then the patient may have to go home with home health and physical therapy. Patient and family not wanting him to go to skilled placement. Patient would benefit greatly with inpatient rehab. Continue at this time. I will turn the service over to Dr. Mohan tomorrow. I will go over the plan of care with her. Dehydration with poor oral intake: Improved with IV fluids. Encourage oral intake. Recheck lab today. Will provide supplementation. Encourage oral intake. Hypertension: Continue medication. Will need to hold medication if blood pressure remains low. Patient may require Midodrine for stability. Diabetes mellitus type 2: Monitor accuchecks. Continue insulin sliding scale. Parkinson's with increased falls at home: Continue Parkinson's meds. Physical therapy recommends inpatient rehab. Await approval. Continue with physical therapy at this time. Fall precaution in place. Bipolar disorder: Continue meds Dementia: Continue meds Peripheral vascular disease: Continue meds Back pain with degenerative arthritis: X-ray shows no fracture. Patient with significant arthritis. Patient with increased fall risk. Has multiple falls at home. Await approval for inpatient rehab. Time Spent Managing Pts Care (In Minutes): 55
[2019-03-06] MEDS: RIVASTIGMINE TARTRATE 1.5 MG PO SCH ×2 (09:58→20:42)
[2019-03-06] MEDS: MEMANTINE HCL 10 MG TABLET PO SCH ×2 (09:58→20:43)
[2019-03-06] MEDS: QUETIAPINE 100MG TAB PO SCH ×2 (09:59→20:42)
[2019-03-06] MEDS: PANTOPRAZOLE 40MG TABLET PO SCH (09:59)
[2019-03-06] MEDS: CARBIDOPA/LEVODOPA 25/100 TAB PO SCH ×3 (09:59→20:42)
[2019-03-06] MEDS: CITALOPRAM 10 MG TABLET PO SCH (09:59)
[2019-03-06] MEDS: DIVALPROEX ER 250 MG TAB PO SCH ×2 (10:00→20:43)
[2019-03-06] MEDS: ENSURE ENLIVE 237 ML CAN PO SCH ×3 (10:02→20:43)
[2019-03-06 10:44] LABS: Magnesium 2.1 mg/dL (1.8-2.4); Potassium 4.6 mmol/L (3.5-5.1)
[2019-03-06] MEDS: ATORVASTATIN 10 MG TAB PO SCH (20:42)
[2019-03-07 04:47] LABS: BUN Blood Urea Nitrogen 23 mg/dL (7-18); Bicarbonate 32 mmol/L (21-32); Glucose Level 113 mg/dL (74-106); Magnesium 1.9 mg/dL (1.8-2.4); Potassium 4.6 mmol/L (3.5-5.1); Sodium Level 143 mmol/L (136-145)
[2019-03-07] MEDS: INSULIN -REGULAR HUMAN 50 UNIT/0.5 ML ML SQ SCH ×4 (07:30→21:00)
[2019-03-07] MEDS: ENSURE ENLIVE 237 ML CAN PO SCH ×3 (09:00→21:07)
[2019-03-07] MEDS: MEMANTINE HCL 10 MG TABLET PO SCH (09:39)
[2019-03-07] MEDS: QUETIAPINE 100MG TAB PO SCH ×2 (09:42→21:12)
[2019-03-07] MEDS: CITALOPRAM 10 MG TABLET PO SCH (09:42)
[2019-03-07] MEDS: DIVALPROEX ER 250 MG TAB PO SCH ×2 (09:44→21:06)
[2019-03-07] MEDS: CARBIDOPA/LEVODOPA 25/100 TAB PO SCH ×3 (09:44→21:11)
[2019-03-07] MEDS: RIVASTIGMINE TARTRATE 1.5 MG PO SCH ×2 (09:44→21:08)
[2019-03-07] MEDS: PROPRANOLOL HCL 60 MG SA CAP PO SCH (09:45)
[2019-03-07] MEDS: PANTOPRAZOLE 40MG TABLET PO SCH (09:49)
[2019-03-07] MEDS: HYDROCODONE/APAP 7.5/325 MG TAB PO PRN (13:25)
--- NOTE | 2019-03-07 16:59 | P.PN ---
Subjective Date of Service: 03/07/19 Primary Care Provider: Dr. Mueller; [facility]-[place] Chief Complaint: Fatigue, poor intake Patient seen and examined at bedside with RN. Chart reviewed. Case discussed with physical therapy. Currently patient is awaiting insurance approval for inpatient rehab. Complains of having some tailbone pain. Denies having any chest pain shortness of breath nausea vomiting or any other associated symptoms at this time Review of Systems 10-point ROS is otherwise unremarkable Physical Examination - Vital Signs Temperature: 97.3 F Blood Pressure: 99/56 Pulse: 70 Respirations: 16 Pulse Ox (%): 95 - Physical Exam General: Alert, In no apparent distress, Demented HEENT: Atraumatic, PERRLA, EOMI Neck: Supple, JVD not distended Respiratory: Clear to auscultation bilaterally, Normal air movement Cardiovascular: Regular rate/rhythm, Normal S1 S2 Gastrointestinal: Normal bowel sounds, No tenderness Musculoskeletal: No tenderness Integumentary: No rashes Neurological: Normal speech, Normal tone, Normal affect Lymphatics: No axilla or inguinal lymphadenopathy - Studies Medications List Reviewed: Yes Assessment And Plan - Plan Assessment and plan Plan: 1. Recurrent Fall -most likely secondary to Parkinson's disease with autonomic dysfunction causing orthostatic hypotension -PT OT consult -fall precautions -currently awaiting inpatient rehab placement 2. Orthostatics hypotension -most likely secondary to autonomic dysfunction secondary to Parkinson's disease -Echocardiogram unremarkable. -Patient may require midodrine if patient continue to be orthostatics. 3. Dehydration with poor oral intake -Improved with IV fluids. Encourage oral intake. Will provide supplementation. 4. Hypertension -Will need to hold medication for hypotension at this time 5. Diabetes mellitus type 2: Monitor accuchecks. Continue insulin sliding scale. 6. Parkinson's dementia with recurrent Fall an autonomic dysfunction 7. Bipolar disorder: Continue meds 8. Peripheral vascular disease: Continue meds 9. Back pain with degenerative arthritis: X-ray shows no fracture. With significant arthritis. Has multiple falls at home. Await approval for inpatient rehab. Discharge Plan: Other Plan to discharge in: 48 Hours - Code Status/Comfort Care Code Status Assessed: Yes Critical Care: No
[2019-03-07] MEDS ORDERED: HOME MED 1 EA UNK (Divalproex Sodium [Depakote Er] 1,500 MG) PO SCH (21:00)
[2019-03-07] MEDS: DOCUSATE NA 100 MG CAP PO SCH (21:05)
[2019-03-07] MEDS: ATORVASTATIN 10 MG TAB PO SCH (21:06)
[2019-03-08 04:29] LABS: BUN Blood Urea Nitrogen 23 mg/dL (7-18); Bicarbonate 28 mmol/L (21-32); Glucose Level 179 mg/dL (74-106); Magnesium 1.8 mg/dL (1.8-2.4); Potassium 4.1 mmol/L (3.5-5.1); Sodium Level 142 mmol/L (136-145)
[2019-03-08] MEDS: INSULIN -REGULAR HUMAN 50 UNIT/0.5 ML ML SQ SCH ×4 (07:30→20:10)
[2019-03-08] MEDS ORDERED: PNEUMOCOCCAL VACCINE 0.5 ML IMVAC ONE (08:00)
[2019-03-08] MEDS: CARBIDOPA/LEVODOPA 25/100 TAB PO SCH ×3 (08:21→20:11)
[2019-03-08] MEDS: DOCUSATE NA 100 MG CAP PO SCH ×2 (08:21→20:12)
[2019-03-08] MEDS: MEMANTINE HCL 10 MG TABLET PO SCH (08:22)
[2019-03-08] MEDS: CITALOPRAM 10 MG TABLET PO SCH (08:22)
[2019-03-08] MEDS: PANTOPRAZOLE 40MG TABLET PO SCH (08:22)
[2019-03-08] MEDS: DIVALPROEX ER 250 MG TAB PO SCH ×2 (08:23→20:12)
[2019-03-08] MEDS: PROPRANOLOL HCL 60 MG SA CAP PO SCH (08:23)
[2019-03-08] MEDS: QUETIAPINE 100MG TAB PO SCH ×2 (08:23→20:11)
[2019-03-08] MEDS: ENSURE ENLIVE 237 ML CAN PO SCH ×3 (08:24→20:10)
[2019-03-08] MEDS ORDERED: MAGNESIUM SULFATE 1 gm IVPB 1 GM/100 ML BAG IV ONE (09:00)
[2019-03-08] MEDS: RIVASTIGMINE TARTRATE 1.5 MG PO SCH ×2 (10:15→20:10)
--- NOTE | 2019-03-08 17:26 | P.PN ---
Subjective Date of Service: 03/08/19 Primary Care Provider: Dr. Mueller; [facility]rology-[place] Chief Complaint: Fatigue, poor intake Patient seen and examined at bedside with RN. Chart reviewed. Case discussed with physical therapy. Currently patient is awaiting insurance approval for inpatient rehab. Denies having any chest pain shortness of breath nausea vomiting or any other associated symptoms at this time Review of Systems 10-point ROS is otherwise unremarkable Physical Examination - Vital Signs Temperature: 96.5 F Blood Pressure: 140/61 Pulse: 65 Respirations: 18 Pulse Ox (%): 95 - Physical Exam General: Alert, In no apparent distress HEENT: Atraumatic, PERRLA, EOMI Neck: Supple, JVD not distended Respiratory: Clear to auscultation bilaterally, Normal air movement Cardiovascular: Regular rate/rhythm, Normal S1 S2 Gastrointestinal: Normal bowel sounds, No tenderness Musculoskeletal: No tenderness Integumentary: No rashes Neurological: Normal speech, Normal tone, Normal affect Lymphatics: No axilla or inguinal lymphadenopathy - Studies Medications List Reviewed: Yes Assessment And Plan - Plan Assessment and plan Plan: 1. Recurrent Fall -most likely secondary to Parkinson's disease with autonomic dysfunction causing orthostatic hypotension -PT OT consult -fall precautions -currently awaiting inpatient rehab placement 2. Orthostatics hypotension -most likely secondary to autonomic dysfunction secondary to Parkinson's disease -Echocardiogram unremarkable. -Patient may require midodrine if patient continue to be orthostatics. 3. Dehydration with poor oral intake -Improved with IV fluids. Encourage oral intake. Will provide supplementation. 4. Hypertension -Will need to hold medication for hypotension at this time 5. Diabetes mellitus type 2: Monitor accuchecks. Continue insulin sliding scale. 6. Parkinson's dementia with recurrent Fall an autonomic dysfunction 7. Bipolar disorder: Continue meds 8. Peripheral vascular disease: Continue meds 9. Back pain with degenerative arthritis: X-ray shows no fracture. With significant arthritis. Has multiple falls at home. Await approval for inpatient rehab. Discharge Plan: Other Plan to discharge in: 48 Hours - Code Status/Comfort Care Code Status Assessed: Yes Critical Care: No
[2019-03-08] MEDS: ATORVASTATIN 10 MG TAB PO SCH (20:11)
[2019-03-09 04:31] LABS: BUN Blood Urea Nitrogen 27 mg/dL (7-18); Bicarbonate 30 mmol/L (21-32); Glucose Level 158 mg/dL (74-106); Potassium 4.3 mmol/L (3.5-5.1); Sodium Level 142 mmol/L (136-145)
[2019-03-09] MEDS: INSULIN -REGULAR HUMAN 50 UNIT/0.5 ML ML SQ SCH ×4 (07:30→21:00)
[2019-03-09] MEDS: PANTOPRAZOLE 40MG TABLET PO SCH (07:59)
[2019-03-09] MEDS: QUETIAPINE 100MG TAB PO SCH ×2 (08:00→21:38)
[2019-03-09] MEDS: CARBIDOPA/LEVODOPA 25/100 TAB PO SCH ×3 (08:00→21:39)
[2019-03-09] MEDS: DIVALPROEX ER 250 MG TAB PO SCH ×2 (08:00→21:37)
[2019-03-09] MEDS: MEMANTINE HCL 10 MG TABLET PO SCH (08:00)
[2019-03-09] MEDS: CITALOPRAM 10 MG TABLET PO SCH (08:00)
[2019-03-09] MEDS: DOCUSATE NA 100 MG CAP PO SCH ×2 (08:00→21:39)
[2019-03-09] MEDS: RIVASTIGMINE TARTRATE 1.5 MG PO SCH ×2 (08:01→21:41)
[2019-03-09] MEDS: PROPRANOLOL HCL 60 MG SA CAP PO SCH (08:01)
[2019-03-09] MEDS: ENSURE ENLIVE 237 ML CAN PO SCH ×3 (08:02→21:42)
--- NOTE | 2019-03-09 13:56 | P.PN ---
Subjective Date of Service: 03/09/19 Primary Care Provider: Dr. Mueller; [facility]rology-[place] Chief Complaint: Fatigue, poor intake Patient seen and examined at bedside with RN. Chart reviewed. Case discussed with physical therapy. Currently patient is awaiting insurance approval for inpatient rehab. Denies having any chest pain shortness of breath nausea vomiting or any other associated symptoms at this time Review of Systems 10-point ROS is otherwise unremarkable Physical Examination - Vital Signs Temperature: 97.3 F Blood Pressure: 132/63 Pulse: 67 Respirations: 18 Pulse Ox (%): 95 - Physical Exam General: Alert, In no apparent distress HEENT: Atraumatic, PERRLA, EOMI Neck: Supple, JVD not distended Respiratory: Clear to auscultation bilaterally, Normal air movement Cardiovascular: Regular rate/rhythm, Normal S1 S2 Gastrointestinal: Normal bowel sounds, No tenderness Musculoskeletal: No tenderness Integumentary: No rashes Neurological: Normal speech, Normal tone, Normal affect Lymphatics: No axilla or inguinal lymphadenopathy - Studies Medications List Reviewed: Yes Assessment And Plan - Plan Assessment and plan Plan: 1. Recurrent Fall -most likely secondary to Parkinson's disease with autonomic dysfunction causing orthostatic hypotension -PT OT consult -fall precautions -currently awaiting inpatient rehab placement 2. Orthostatics hypotension -most likely secondary to autonomic dysfunction secondary to Parkinson's disease -Echocardiogram unremarkable. -Patient may require midodrine if patient continue to be orthostatics. 3. Dehydration with poor oral intake -Improved with IV fluids. Encourage oral intake. Will provide supplementation. 4. Hypertension -Will need to hold medication for hypotension at this time 5. Diabetes mellitus type 2: Monitor accuchecks. Continue insulin sliding scale. 6. Parkinson's dementia with recurrent Fall an autonomic dysfunction 7. Bipolar disorder: Continue meds 8. Peripheral vascular disease: Continue meds 9. Back pain with degenerative arthritis: X-ray shows no fracture. With significant arthritis. Has multiple falls at home. Await approval for inpatient rehab. Discharge Plan: Other Plan to discharge in: 48 Hours - Code Status/Comfort Care Code Status Assessed: Yes Critical Care: No
[2019-03-09] MEDS: ATORVASTATIN 10 MG TAB PO SCH (21:38)
[2019-03-10] MEDS: INSULIN -REGULAR HUMAN 50 UNIT/0.5 ML ML SQ SCH ×4 (07:30→21:07)
[2019-03-10] MEDS: PROPRANOLOL HCL 60 MG SA CAP PO SCH (09:00)
[2019-03-10] MEDS: RIVASTIGMINE TARTRATE 1.5 MG PO SCH ×2 (09:05→21:04)
[2019-03-10] MEDS: CITALOPRAM 10 MG TABLET PO SCH (09:05)
[2019-03-10] MEDS: MEMANTINE HCL 10 MG TABLET PO SCH (09:06)
[2019-03-10] MEDS: PANTOPRAZOLE 40MG TABLET PO SCH (09:06)
[2019-03-10] MEDS: QUETIAPINE 100MG TAB PO SCH ×2 (09:06→21:02)
[2019-03-10] MEDS: CARBIDOPA/LEVODOPA 25/100 TAB PO SCH ×3 (09:07→21:01)
[2019-03-10] MEDS: DOCUSATE NA 100 MG CAP PO SCH ×2 (09:07→20:59)
[2019-03-10] MEDS: DIVALPROEX ER 250 MG TAB PO SCH ×2 (09:07→21:00)
[2019-03-10] MEDS: ENSURE ENLIVE 237 ML CAN PO SCH ×3 (09:08→21:06)
--- NOTE | 2019-03-10 12:27 | P.PN ---
Subjective Date of Service: 03/10/19 Primary Care Provider: Dr. Mueller; [facility]rology-[place] Chief Complaint: Fatigue, poor intake Patient seen and examined at bedside with RN. Chart reviewed. Case discussed with physical therapy. Currently patient is awaiting insurance approval for inpatient rehab. Denies having any chest pain shortness of breath nausea vomiting or any other associated symptoms at this time Review of Systems 10-point ROS is otherwise unremarkable Physical Examination - Vital Signs Temperature: 97 F Blood Pressure: 110/53 Pulse: 58 Respirations: 18 Pulse Ox (%): 93 - Physical Exam General: Alert, In no apparent distress HEENT: Atraumatic, PERRLA, EOMI Neck: Supple, JVD not distended Respiratory: Clear to auscultation bilaterally, Normal air movement Cardiovascular: Regular rate/rhythm, Normal S1 S2 Gastrointestinal: Normal bowel sounds, No tenderness Musculoskeletal: No tenderness Integumentary: No rashes Neurological: Normal speech, Normal tone, Normal affect Lymphatics: No axilla or inguinal lymphadenopathy - Studies Medications List Reviewed: Yes Assessment And Plan - Plan Assessment and plan Plan: 1. Recurrent Fall -most likely secondary to Parkinson's disease with autonomic dysfunction causing orthostatic hypotension -PT OT consult -fall precautions -currently awaiting inpatient rehab placement 2. Orthostatics hypotension -most likely secondary to autonomic dysfunction secondary to Parkinson's disease -Echocardiogram unremarkable. -Patient may require midodrine if patient continue to be orthostatics. 3. Dehydration with poor oral intake -Improved with IV fluids. Encourage oral intake. Will provide supplementation. 4. Hypertension -Will need to hold medication for hypotension at this time 5. Diabetes mellitus type 2: Monitor accuchecks. Continue insulin sliding scale. 6. Parkinson's dementia with recurrent Fall an autonomic dysfunction 7. Bipolar disorder: Continue meds 8. Peripheral vascular disease: Continue meds 9. Back pain with degenerative arthritis: X-ray shows no fracture. With significant arthritis. Has multiple falls at home. Await approval for inpatient rehab. Discharge Plan: Other Plan to discharge in: 48 Hours - Code Status/Comfort Care Code Status Assessed: Yes Critical Care: No
[2019-03-10] MEDS: ATORVASTATIN 10 MG TAB PO SCH (21:02)
[2019-03-11] MEDS: INSULIN -REGULAR HUMAN 50 UNIT/0.5 ML ML SQ SCH (07:30)
[2019-03-11] MEDS: CITALOPRAM 10 MG TABLET PO SCH (08:47)
[2019-03-11] MEDS: QUETIAPINE 100MG TAB PO SCH (08:47)
[2019-03-11] MEDS: CARBIDOPA/LEVODOPA 25/100 TAB PO SCH (08:48)
[2019-03-11] MEDS: DIVALPROEX ER 250 MG TAB PO SCH (08:50)
[2019-03-11] MEDS: DOCUSATE NA 100 MG CAP PO SCH (08:50)
[2019-03-11] MEDS: PANTOPRAZOLE 40MG TABLET PO SCH (08:50)
[2019-03-11] MEDS: MEMANTINE HCL 10 MG TABLET PO SCH (08:50)
[2019-03-11] MEDS: PROPRANOLOL HCL 60 MG SA CAP PO SCH (08:51)
[2019-03-11] MEDS: ENSURE ENLIVE 237 ML CAN PO SCH (08:52)
[2019-03-11] MEDS: RIVASTIGMINE TARTRATE 1.5 MG PO SCH (10:27)
--- NOTE | 2019-03-11 11:45 | P.DS ---
Admission Date: 03/05/19 Discharge Date: 03/11/19 Primary Care Provider: Dr. Mueller; [facility] Disposition: ROUTINE DISCHARGE Discharge Condition: GOOD Reason for Admission: Fatigue, poor intake Consultations: Inpatient rehab Brief History of Present Illness: 68-year-old male presents to the emergency room with fatigue and poor intake. Patient with history of diabetes, bipolar disorder, Parkinson's, dementia and hypertension. Patient reports increased fatigue over the last week. He has been sleeping a lot. He denies any chest pain, shortness of breath. He has not been able to ambulate well. Patient denies any nausea, vomiting, diarrhea or constipation. Medications had been recently adjusted. This includes carbidopa levodopa. Due to his lack of appetite and increased fatigue patient came to the ER for further evaluation. In the ER patient evaluated. Patient was found to have a flutter with AV conversion. Patient was monitored and patient converted to normal sinus rhythm without medication. Lab shows white count 9.0, hemoglobin 15. Sodium 138, potassium 5.6. BUN of 28, creatinine 1.2 with a GFR 60. Glucose 99. Chest x- ray unremarkable. Urinalysis unremarkable. Troponin unremarkable. Patient was given medication for elevated potassium. Patient was admitted for evaluation and treatment When I saw the patient the ER, he appeared weak. at bedside. Patient in normal sinus rhythm. No prior history of atrial fibrillation. He reports having a heart catheterization about 5 years ago which was negative. He denies any palpitations. Hospital Course: Overall during the hospital stay patient remained stable Patient was initially admitted to the hospital after having a fall at the house most likely secondary to orthostatics hypotension which is secondary to complication from his Parkinson's disease. Patient had IV fluids here in hospital and was restarted on his Parkinson medications. Patient had extensive workup done here including head CT to rule out acute CVA. All workup was negative for any other etiology. Patient did have severe orthostatics hypotension which did resolve while here in the hospital after IV fluids as well. At that time and extensive discussion was done with the family regarding the progression of his Parkinson's disease and the need for patient to have physical therapy and occupational therapy to get stronger. At the time referral was sent for inpatient rehab which patient then was of accepted to inpatient rehab however insurance denied the when this patient was discharged home under stable and was provided with home health. Patient and family were also educated extensively regarding Parkinson's disease and expectations from the disease. Patient and family demonstrated understanding and thus they were discharged home under stable condition. No new medications were prescribed. Vital Signs/Physical Exam: Temp Pulse Resp BP Pulse Ox 97.9 F 62 20 126/63 93 03/11/19 08:00 03/11/19 08:51 03/11/19 08:00 03/11/19 08:51 03/11/19 08:00 General: Alert, In no apparent distress HEENT: Atraumatic, PERRLA, EOMI Neck: Supple, JVD not distended Respiratory: Clear to auscultation bilaterally, Normal air movement Cardiovascular: Regular rate/rhythm, Normal S1 S2 Gastrointestinal: Normal bowel sounds, No tenderness Musculoskeletal: No tenderness Integumentary: No rashes Neurological: Normal speech, Normal tone, Normal affect Lymphatics: No axilla or inguinal lymphadenopathy Laboratory Data at Discharge: WBC 6.5 K/uL (4.3-10.9) D 03/05/19 05:13 Hgb 14.0 g/dL (13.6-17.9) 03/05/19 05:13 Hct 40.9 % (39.6-49.0) 03/05/19 05:13 Plt Count 135 K/uL (152-406) L 03/05/19 05:13 PT 12.0 SECONDS (9.5-12.5) 03/04/19 09:21 INR 1.02 03/04/19 09:21 Sodium 142 mmol/L (136-145) 03/09/19 03:32 Potassium 4.3 mmol/L (3.5-5.1) 03/09/19 03:32 BUN 27 mg/dL (7-18) H 03/09/19 03:32 Creatinine 0.78 mg/dL (0.55-1.3) 03/09/19 03:32 Glucose 158 mg/dL (74-106) H 03/09/19 03:32 Magnesium 2.0 mg/dL (1.8-2.4) 03/09/19 03:32 Total Bilirubin 0.7 mg/dL (0.2-1.0) 03/04/19 09:21 AST 26 U/L (15-37) 03/04/19 09:21 ALT 26 U/L (12-78) 03/04/19 09:21 Alkaline Phosphatase 69 U/L (45-117) 03/04/19 09:21 Troponin I < 0.02 ng/mL (0.0-0.045) 03/04/19 23:23 Triglycerides 222 mg/dL (<150) H 03/05/19 05:13 Cholesterol 101 mg/dL (<200) 03/05/19 05:13 HDL Cholesterol 28 mg/dL (40-60) L 03/05/19 05:13 Cholesterol/HDL Ratio 3.61 03/05/19 05:13 Home Medications: Atorvastatin Calcium [Lipitor*] 10 mg PO BEDTIME 03/04/19 Carbidopa/Levodopa 25-100 [Sinemet 25-100*] 1.5 tab PO TID 03/04/19 Citalopram Hydrobromide [Citalopram HBr] 1 tab PO DAILY 03/04/19 Divalproex ER [Depakote *ER] 1,000 mg PO DAILY 03/04/19 Ipratropium [Atrovent 0.03% (21MCG)/[place] Nasal*] 2 sprays IH DAILY 03/04/19 Memantine HCl [Namenda] 1 tab PO DAILY 03/04/19 Metformin ER [Glucophage ER*] 1,000 mg PO DAILY 03/04/19 Propranolol HCl [Propranolol HCl ER] 1 tab PO DAILY 03/04/19 Quetiapine Fumarate [Seroquel] 1 tab PO BID 03/04/19 Rivastigmine Tartrate [Rivastigmine] 1 tab PO BID 03/04/19 Divalproex Sodium [Depakote ER] 1,500 mg PO BEDTIME 03/07/19 Patient Discharge Instructions: Please f/u with Neurology and PCP in 1 to 2 days post discharge. No New medication Diet: Regular Activity: Ad joey Followup: Jase Mueller MD [ACTIVE - CAN ADMIT] - 1-2 Days (Call to schedule an appointment )
[2019-03-11 11:46] VITALS: O2SAT 94
[2019-03-11 12:53] VITALS: BP 108/62; TEMP 97.4
== END 2019-03-11 12:42 | disposition home health service (06) | DRG 312 ==
LOC: ER 08:51 → ERHOLD 11:19 → INTOOBSV 11:19 → OBSVTOIN 11:19 → 4TH 13:06 → OBSVTOIN 03-05 13:42
PROVIDERS: ADMIT Family Medicine; ATTEND Family Medicine
DX: I95.1 Orthostatic hypotension (principal); I48.92 Unspecified atrial flutter; F45.8 Other somatoform disorders; E86.0 Dehydration; G20 Parkinson's disease; I10 Essential (primary) hypertension; E11.9 Type 2 diabetes mellitus without complications; F31.9 Bipolar disorder, unspecified; I73.9 Peripheral vascular disease, unspecified; M19.90 Unspecified osteoarthritis, unspecified site; Z91.81 History of falling; F02.80 Dementia in other diseases classified elsewhere, unspecified severity, without behavioral disturbance, psychotic disturbance, mood disturbance, and anxiety; Z96.652 Presence of left artificial knee joint; Z23 Encounter for immunization
CPT/HCPCS: 36415; 71045; 71046; 72074; 72100; 72170; 80048; 80061; 80076; 80164; 81003; 81015; 82550; 82553; 82962; 83735; 83880; 84132; 84153; 84439; 84443; 84484; 85025; 85610; 87086; 87088; 90471; 90670; 93005; 93306; 96361; 96365; 96367; 96375; 97116; 97162; 97166; 97530; 99285; G0378; J0360; J1650; J1940; J3475; J7030

== ENCOUNTER 2019-04-25 12:44 | Emergency (ER) | payer OTHER ==
[2019-04-25 14:03] LABS: Absolute Lymphocytes (CBC) 2.3 K/uL (0.7-4.9); Basophils % 0.7 % (0-1.3); Hematocrit 41.6 % (39.6-49.0); Lymphocytes % 30.7 % (15.3-44.8); MPV 9.7 fL (7.6-11.3); RBC Red Blood Cell Count 4.14 M/uL (4.33-5.43)
[2019-04-25 14:13] LABS: Magnesium 2.2 mg/dL (1.8-2.4); Potassium 4.8 mmol/L (3.5-5.1)
--- NOTE | 2019-04-25 14:29 | RAD REPORT ---
EXAM DESCRIPTION: CT - Head Brain Wo Cont - 04/25/2019 2:21 pm CLINICAL HISTORY: Numbness/weakness/ frequent falls COMPARISON: 2010 TECHNIQUE: Computed axial tomography of the head was obtained. IV contrast was not requested. All CT scans are performed using dose optimization technique as appropriate and may include automated exposure control or mA/KV adjustment according to patient size. FINDINGS: An intracranial bleed is not seen . The ventricles are normal in caliber. No extra-axial fluid collection is noted. Moderate cerebral atrophy Fluid within the sinuses/ mastoids is not seen. IMPRESSION: No acute intracranial abnormality is seen. If patient's symptoms persist MRI of the bra in would be recommended.
[2019-04-25] MEDS ORDERED: NA CHLORIDE 0.9% 1,000 ML ONE ×2 (14:32→14:40)
[2019-04-25 15:01] LABS: Blood Morphology Comment NOT SEEN (NOT SEEN); Platelet Estimate DECR; Urine White Blood Cell Casts OK
--- NOTE | 2019-04-25 15:15 | EKG ---
Test Date: 2019-04-25 Test Time: 13:01:02 Maintenance Technician 2Nd Shift: CORIN MEASUREMENT RESULTS: Intervals: Rate: 61 NC: 154 QRSD: 78 QT: 410 QTc: 412 Maynard: P: 38 NC: 154 QRS: 5 T: 62 INTERPRETIVE STATEMENTS: Normal sinus rhythm Possible Inferior infarct, age undetermined Anterolateral infarct, age undetermined Abnormal ECG Compared to ECG 03/04/2019 13:52:00 Sinus bradycardia no longer present Left-axis deviation no longer present Myocardial infarct finding still present Electronically Signed On 04-25-19 15:16:00 CDT by Jamal Young
[2019-04-25 15:46] LABS: Urine Blood NEGATIVE (NEG); Urine Glucose NEGATIVE (NEG); Urine Protein TRACE (NEG); Urine Specific Gravity 1.015 (1.005-1.030)
--- NOTE | 2019-04-25 17:01 | EDPHYS ---
Physician Documentation [facility] Name: Geraldo Solis Age: 68 yrs Sex: Male : 1950 Arrival Date: 04/25/2019 Time: 12:47 Bed 27 Private MD: ED Physician Joao Ambrose HPI: 04/25 15:01 This 68 yrs old Male presents to ER via Wheelchair with complaints of weakness.rn 15:01 Family reports generalized weakness and increased falls lately for a few days, reports rn his parkinsons doctor recently changed his carbidopa/levadopa to decrease dosing, family feels like doing worse since change last week. No fever/vomiting/diarrhea/chest pain/sob/abd pain. + increased urination. . Onset: The symptoms/episode began/occurred 4 day(s) ago. Severity of symptoms: At their worst the symptoms were moderate in the emergency department the symptoms are unchanged. The patient has experienced a previous episode. The patient has been recently seen by a physician:. 15:01 Home health nurse recommended ER evaluation because she felt irregular pulse. . rn Historical: - Allergies: 12:55 No Known Allergies; aa5 - PMHx: 12:55 Bipolar disorder; Parkinsons; Diabetes - NIDDM; Hypertension; aa5 - PSHx: 12:55 left knee; arm surgery - right; aa5 - Immunization history:: Adult Immunizations up to date. - Ebola Screening: : No symptoms or risks identified at this time. - Social history:: Smoking status: Patient/guardian denies using tobacco. - Family history:: not pertinent. - Hospitalizations: : No recent hospitalization is reported. ROS: 15:01 Constitutional: Negative for fever, chills, and weight loss, Eyes: Negative for injury, rn pain, redness, and discharge, Neck: Negative for injury, pain, and swelling, Cardiovascular: Negative for chest pain, palpitations, and edema, Respiratory: Negative for shortness of breath, cough, wheezing, and pleuritic chest pain, Abdomen/GI: Negative for abdominal pain, nausea, vomiting, diarrhea, and constipation, : + increased urinary frequency MS/Extremity: Negative for injury and deformity, Skin: Negative for injury, rash, and discoloration, Neuro: Negative for headache, numbness, tingling, and seizure. Exam: 15:01 Constitutional: This is a well developed, well nourished patient who is awake, alert, rn and in no acute distress. Head/Face: Normocephalic, atraumatic. Eyes: Pupils equal round and reactive to light, extra-ocular motions intact. Lids and lashes normal. Conjunctiva and sclera are non-icteric and not injected. Cornea within normal limits. Periorbital areas with no swelling, redness, or edema. ENT: dry MM Cardiovascular: Regular rate and rhythm. No pulse deficits. Respiratory: Lungs have equal breath sounds bilaterally, clear to auscultation. No increased work of breathing, no retractions or nasal flaring. Abdomen/GI: soft, non-tender Skin: Warm, dry, no evidence of cellulitis MS/ Extremity: Pulses equal, no cyanosis. Neurovascular intact. Full, normal range of motion. Equal circumference. Neuro: Awake and alert, GCS 15, oriented to person, place, time, and situation. Cranial nerves II-XII grossly intact. Motor strength 4/5 in all extremities. Sensory grossly intact Vital Signs: 12:58 BP 90 / 56; Pulse 60; Resp 12 S; Temp 98.7(O); Pulse Ox 97% on R/A; aa5 13:30 BP 76 / 62; lt1 14:04 BP 77 / 56; lt1 14:30 BP 127 / 70; Pulse 60; Resp 16; Temp 98.2(O); Pulse Ox 96% ; lt1 15:47 BP 132 / 98; Pulse 65; Resp 14 S; Pulse Ox 97% on R/A; ca1 16:24 BP 128 / 79; Pulse 62; Resp 16 S; Temp 97.1(TE); Pulse Ox 98% on R/A; ca1 17:20 BP 136 / 84; Pulse 71; Resp 14 S; Temp 97.6(TE); Pulse Ox 98% on R/A; ca1 MDM: 13:10 Patient medically screened. rn 15:20 ED course: + improvement with fluids. rn 16:57 Differential Diagnosis dehydration, medication change, UTI. Data reviewed: vital signs, rn nurses notes, lab test result(s), radiologic studies, CT scan, and as a result, I will discharge patient. Counseling: I had a detailed discussion with the patient and/or guardian regarding: the historical points, exam findings, and any diagnostic results supporting the discharge/admit diagnosis, lab results, radiology results, the need for outpatient follow up, to return to the emergency department if symptoms worsen or persist or if there are any questions or concerns that arise at home. Response to treatment: the patient's symptoms have markedly improved after treatment, patient is well hydrated. and as a result, I will discharge patient. Special discussion: I discussed with the patient/guardian in detail that at this point there is no indication for admission to the hospital. It is understood, however, that if the symptoms persist or worsen the patient needs to return immediately for re-evaluation. Based on the history and exam findings, there is no indication for further emergent testing or inpatient evaluation. I discussed with the patient/guardian the need to see the neurologist for further evaluation of the symptoms. I discussed with the patient/guardian the need to see the primary care provider for further evaluation of the symptoms. ED course: Patient markedly improved after 2 L bolus, lactate now improved to normal, neg UTI, neg ct head, no acute findings on labs, requesting to go home, much more alert, stable vitals, they spoke to his parkinsons doctor and they are switching back to his previous meds. Family states looks much better and more alert, is asking what they are eating for dinner and making plans, are happy to take him home now.. 04/25 13:28 Order name: CBC with Diff; Complete Time: 15:26 04/25 13:28 Order name: Basic Metabolic Panel; Complete Time: 14:18 04/25 13:29 Order name: Blood Culture Adult (2) 04/25 13:29 Order name: Procalcitonin; Complete Time: 15:26 04/25 13:29 Order name: Lactate; Complete Time: 15:26 04/25 13:29 Order name: Magnesium; Complete Time: 14:18 04/25 13:29 Order name: CT Head Brain wo Cont; Complete Time: 14:43 04/25 14:17 Order name: CBC Smear Scan; Complete Time: 15:26 [facility] 04/25 14:25 Order name: Glucose, Ancillary Testing; Complete Time: 14:43 [facility] 04/25 14:27 Order name: Glucose, Ancillary Testing [facility] 04/25 15:14 Order name: Urine Dipstick--Ancillary (enter results); Complete Time: 15:51 bd 04/25 15:58 Order name: Lactate; Complete Time: 16:54 rn 04/25 13:28 Order name: IV Start; Complete Time: 14:17 rn 04/25 13:29 Order name: Accucheck; Complete Time: 14:17 rn 04/25 13:29 Order name: EKG; Complete Time: 13:32 rn 04/25 13:29 Order name: EKG - Nurse/Tech; Complete Time: 14:13 rn Administered Medications: 14:18 Drug: NS 0.9% 1000 ml Route: IV; Rate: 1000 ml; Site: left forearm; ca1 15:36 Follow up: Response: No adverse reaction; IV Status: Completed infusion ca1 14:30 Drug: NS 0.9% 1000 ml Route: IV; Rate: 1000 ml; Site: right forearm; ca1 17:24 Follow up: IV Status: Completed infusion iw Point of Care Testing: Blood Glucose: 14:16 Blood Glucose: 100 mg/dL; lt1 Ranges: Critical Glucose Levels:Adult <50 mg/dl or >400 mg/dl <40 mg/dl or >180 mg/dl Disposition: 04/25/19 17:00 Discharged to Home. Impression: Dehydration, Weakness, Parkinson's disease. - Condition is Stable. - Discharge Instructions: Dehydration, Adult, Parkinson Disease, Weakness. - Medication Reconciliation Form, Thank You Letter, Antibiotic Education, Prescription Opioid Use form. - Follow up: Private Physician; When: 2 - 3 days; Reason: Recheck today's complaints, Re-evaluation by your physician. - Problem is new. - Symptoms have improved. Signatures: Dispatcher [employer] Brielle Parnell RN RN iw Joao Ambrose MD MD rn Calderon, Audri, RN RN aa5 Madina Zarate RN RN ca1 Corrections: (The following items were deleted from the chart) 17:24 17:00 04/25/2019 17:00 Discharged to Home. Impression: Dehydration; Weakness; iw Parkinson's disease. Condition is Stable. Forms are Medication Reconciliation Form, Thank You Letter, Antibiotic Education, Prescription Opioid Use. Follow up: Private Physician; When: 2 - 3 days; Reason: Recheck today's complaints, Re-evaluation by your physician. Problem is new. Symptoms have improved. rn
--- NOTE | 2019-04-25 17:01 | ER ---
Nurse's Notes [facility] Name: Geraldo Solis Age: 68 yrs Sex: Male : 1950 Arrival Date: 04/25/2019 Time: 12:47 Bed 27 Private MD: Diagnosis: Dehydration;Weakness;Parkinson's disease Presentation: 04/25 12:55 Presenting complaint: Pt's [id number] states "he's been weak and falling a lot". aa5 Pt's home health nurse sent him here for possible irregular pulse. 12:55 Transition of care: patient was not received from another setting of care. Onset of aa5 symptoms was April 25, 2019. Care prior to arrival: None. 12:55 Acuity: MARKO 2 aa5 12:55 Method Of Arrival: Wheelchair aa5 13:22 Risk Assessment: Do you want to hurt yourself or someone else? Patient reports no ca1 desire to harm self or others. Initial Sepsis Screen: Does the patient meet any 2 criteria? No. Patient's initial sepsis screen is negative. Does the patient have a suspected source of infection? No. Patient's initial sepsis screen is negative. Historical: - Allergies: 12:55 No Known Allergies; aa5 - PMHx: 12:55 Bipolar disorder; Parkinsons; Diabetes - NIDDM; Hypertension; aa5 - PSHx: 12:55 left knee; arm surgery - right; aa5 - Immunization history:: Adult Immunizations up to date. - Ebola Screening: : No symptoms or risks identified at this time. - Social history:: Smoking status: Patient/guardian denies using tobacco. - Family history:: not pertinent. - Hospitalizations: : No recent hospitalization is reported. Screenin:15 Abuse screen: Denies threats or abuse. Nutritional screening: No deficits noted. ca1 Tuberculosis screening: No symptoms or risk factors identified. Fall Risk Fall in past 12 months (25 points). Secondary diagnosis (15 points) impaired mobility, IV access (20 points). Ambulatory Aid- Crutches/Cane/Walker (15 pts). Gait- Weak (10 pts.). Total Morfin Fall Scale indicates High Risk Score (45 or more points). Fall prevention measures have been instituted. Side Rails Up X 2 Frequent Obs/Assessments Occuring Family Present and informed to notify staff if the need to leave the bedside As available patient and family educated on Fall Prevention Program and Strategies. Assessment: 13:15 Reassessment: Dr. Ambrose at bedside. General: Appears in no apparent distress. ca1 comfortable, Behavior is calm, cooperative, appropriate for age. General: Reports fatigue for >3 days. General: Reports family reports pt has general body weakness since or Thursday. He uses a walker to ambulate around the house but for the past few days he has been weak he is unable to stand and walk around. Pain: Denies pain. Pain: Neuro: Level of Consciousness is awake, alert, obeys commands, Oriented to person, place, time, situation. Cardiovascular: Heart tones S1 S2 present Capillary refill < 3 seconds Patient's skin is warm and dry. Pulses are all present. Rhythm is sinus rhythm. Respiratory: Airway is patent Respiratory effort is even, unlabored, Respiratory pattern is regular, symmetrical, Breath sounds are clear bilaterally. GI: Abdomen is round non-distended, Bowel sounds present X 4 quads. Abd is soft and non tender X 4 quads. : No deficits noted. No signs and/or symptoms were reported regarding the genitourinary system. EENT: No deficits noted. No signs and/or symptoms were reported regarding the EENT system. Derm: Skin is intact, is healthy with good turgor, Skin is pink, warm \\T\\ dry. Musculoskeletal: Circulation, motion, and sensation intact. Capillary refill < 3 seconds. 14:10 Reassessment: Patient appears in no apparent distress at this time. Patient and/or ca1 family updated on plan of care and expected duration. Pain level reassessed. Patient is alert, oriented x 3, equal unlabored respirations, skin warm/dry/pink. 15:12 Reassessment: Patient appears in no apparent distress at this time. Patient and/or ca1 family updated on plan of care and expected duration. Pain level reassessed. Patient is alert, oriented x 3, equal unlabored respirations, skin warm/dry/pink. For repeat Lactate. 16:24 Reassessment: Patient appears in no apparent distress at this time. Patient and/or ca1 family updated on plan of care and expected duration. Pain level reassessed. Patient is alert, oriented x 3, equal unlabored respirations, skin warm/dry/pink. family still at bedside. Pt able to pee in urinal. Patient states feeling better. 17:20 Reassessment: Patient appears in no apparent distress at this time. Patient and/or ca1 family updated on plan of care and expected duration. Pain level reassessed. Patient is alert, oriented x 3, equal unlabored respirations, skin warm/dry/pink. Pt able to stand up with assist from stretcher to wheelchair Patient states feeling better. 17:24 Pain: Pain began. iw Vital Signs: 12:58 BP 90 / 56; Pulse 60; Resp 12 S; Temp 98.7(O); Pulse Ox 97% on R/A; aa5 13:30 BP 76 / 62; lt1 14:04 BP 77 / 56; lt1 14:30 BP 127 / 70; Pulse 60; Resp 16; Temp 98.2(O); Pulse Ox 96% ; lt1 15:47 BP 132 / 98; Pulse 65; Resp 14 S; Pulse Ox 97% on R/A; ca1 16:24 BP 128 / 79; Pulse 62; Resp 16 S; Temp 97.1(TE); Pulse Ox 98% on R/A; ca1 17:20 BP 136 / 84; Pulse 71; Resp 14 S; Temp 97.6(TE); Pulse Ox 98% on R/A; ca1 ED Course: 12:47 Patient arrived in ED. as 12:54 Arm band placed on. aa5 13:01 Triage completed. aa5 13:06 Madina Zarate, RN is Primary Nurse. ca1 13:10 Joao Ambrose MD is Attending Physician. rn 13:15 Patient has correct armband on for positive identification. Placed in gown. Bed in low ca1 position. Call light in reach. Side rails up X2. marble chip terrazzo worker on. Pulse ox on. NIBP on. Warm blanket given. 13:15 No provider procedures requiring assistance completed. Patient maintains SpO2 ca1 saturation greater than 95% on room air. 14:18 by me, sent to lab. First set of blood cultures drawn by me. lt1 14:20 Inserted saline lock: 22 gauge in right forearm, using aseptic technique. lt1 14:23 CT Head Brain wo Cont In Process Unspecified. EDMS 17:23 IV discontinued, intact, bleeding controlled, No redness/swelling at site. Pressure iw dressing applied. Administered Medications: 14:18 Drug: NS 0.9% 1000 ml Route: IV; Rate: 1000 ml; Site: left forearm; ca1 15:36 Follow up: Response: No adverse reaction; IV Status: Completed infusion ca1 14:30 Drug: NS 0.9% 1000 ml Route: IV; Rate: 1000 ml; Site: right forearm; ca1 17:24 Follow up: IV Status: Completed infusion iw Point of Care Testing: Blood Glucose: 14:16 Blood Glucose: 100 mg/dL; lt1 Ranges: Outcome: 17:00 Discharge ordered by . rn 17:24 Discharged to home via wheelchair, with family. iw 17:24 Condition: good 17:24 Discharge instructions given to patient, family, Instructed on discharge instructions, follow up and referral plans. Demonstrated understanding of instructions, follow-up care. 17:24 Patient left the ED. iw Signatures: Dispatcher [employer] Radha Putnam Irene, RN RN iw Joao Ambrose MD MD rn Calderon, Audri, RN RN aa5 Madina Zarate RN RN ca1 Nereida Juarez lt1 Corrections: (The following items were deleted from the chart) 13:04 12:58 Pulse 60bpm; Resp 12bpm; Spontaneous; Pulse Ox 97% RA; Temp 97.0F Temporal; aa5 aa5
[2019-04-25 20:16] VITALS: TEMP 98.2
[2019-04-25 20:18] VITALS: BP 132/98; O2SAT 97
== END 2019-04-25 17:24 | disposition home or self-care (01) ==
LOC: ER 12:44
DX: E86.0 Dehydration (principal); G20 Parkinson's disease; I10 Essential (primary) hypertension
CPT/HCPCS: 96361; 93005; 87040 ×2; 85025; 80048; 36415; 83735; 82962; 83605 ×2; 81003; 84145; 70450; 96360; 99285; J7030 ×2

== ENCOUNTER 2019-11-29 22:31 | Emergency (ER) | payer OTHER ==
[2019-11-30] MEDS ORDERED: CODEINE 30MG/APAP 300MG TAB ONE (01:46)
--- NOTE | 2019-11-30 02:29 | EDPHYS ---
Physician Documentation [facility] Name: Geraldo Solis Age: 69 yrs Sex: Male : 1950 Arrival Date: 11/29/2019 Time: 22:32 Bed 7 Private MD: ED Physician Joao Ambrose HPI: 11/29 22:47 This 69 yrs old Male presents to ER via Unassigned with complaints of Fall rn Injury. 22:47 Details of fall: The patient fell from an upright position, while walking. Onset: The rn symptoms/episode began/occurred just prior to arrival. Associated injuries: The patient sustained injury to the head. Severity of symptoms: At their worst the symptoms were mild, in the emergency department the symptoms are unchanged. The patient has not experienced similar symptoms in the past. Reports fall from standing, mechanical, no LOC, no blood thinners, remembers all events, reports pain to face and neck. No other pain elsewhere.. Historical: - Allergies: 22:40 No Known Allergies; jb4 - Home Meds: 22:40 carbidopa-levodopa 25-100 mg Oral tab 1 tab 3 times per day [Active]; citalopram 40 mg jb4 tab 1 tab once daily [Active]; Cymbalta 60 mg oral cpDR 1 cap once daily [Active]; Depakote ER 500 mg Oral Tb24 2 tabs once daily [Active]; Depakote ER 500 mg Oral Tb24 3 tabs nightly [Active]; GlycoLax 17 gram/dose oral powd once daily [Active]; memantine 10 mg oral tab 1 tab 2 times per day [Active]; quetiapine 200 mg oral tab 1 tab 2 times per day [Active]; rivastigmine tartrate 6 mg oral cap 1 cap 2 times per day [Active]; - PMHx: 22:40 Bipolar disorder; Diabetes - NIDDM; Hypertension; Parkinsons; Dementia; constipation; jb4 Schizophrenia; - PSHx: 22:40 left knee; arm surgery - right; jb4 - Immunization history: Last tetanus immunization: unknown. - Coronavirus screen:: The patient has NOT traveled to [place] in the past 14 days. Proceed with normal triage process as indicated. The patient has NOT had contact with known/suspected case of Coronavirus? Proceed with normal triage procedures. - Family history:: not pertinent. - Social history:: Smoking status: Patient denies any tobacco usage or history of. Patient/guardian denies using alcohol, street drugs. - Hospitalizations: : No recent hospitalization is reported. - Ebola Screening: : No symptoms or risks identified at this time. ROS: 22:47 Constitutional: Negative for fever, chills, and weight loss, Eyes: + left eye rn periorbital swelling and bruising Neck: + neck pain Cardiovascular: Negative for chest pain, palpitations, and edema, Respiratory: Negative for shortness of breath, cough, wheezing, and pleuritic chest pain, Abdomen/GI: Negative for abdominal pain, nausea, vomiting, diarrhea, and constipation, Back: Negative for injury and pain, MS/Extremity: Negative for injury and deformity, Skin: Negative for injury, rash, and discoloration, Neuro: Negative for weakness, numbness, tingling, and seizure. Exam: 22:47 Constitutional: This is a well developed, well nourished patient who is awake, alert, rn and in no acute distress. Head/Face: + left eye infraorbital ecchymosis and tenderness, abrasions over left zygoma. Eyes: Pupils equal round and reactive to light, extra-ocular motions intact. No clinical signs of entrapment ENT: No oral trauma Neck: No midline cervical tenderness Chest/axilla: Normal chest wall appearance and motion. Nontender with no deformity. No lesions are appreciated. Cardiovascular: Regular rate and rhythm. No pulse deficits. Respiratory: No increased work of breathing, no retractions or nasal flaring. Abdomen/GI: soft, non-tender MS/ Extremity: Pulses equal, no cyanosis. Neurovascular intact. Full, normal range of motion. Equal circumference. Neuro: Awake and alert, GCS 15, oriented to person, place, and situation. Motor strength 4/5 in all extremities. Sensory grossly intact. Vital Signs: 22:40 BP 166 / 103; Pulse 83; Resp 18; Temp 97.6(TE); Pulse Ox 97% on R/A; Weight 83.01 kg jb4 (R); Height 5 ft. 3 in. (160.02 cm) (R); Pain 8/10; 23:40 BP 191 / 90; Pulse 90; Resp 18; Pulse Ox 99% on R/A; jb4 11/30 00:00 BP 149 / 87; Pulse 72; Resp 16; Pulse Ox 99% on R/A; jb4 01:00 BP 170 / 76; Pulse 70; Resp 16; Pulse Ox 100% on R/A; jb4 02:00 BP 167 / 86; Pulse 74; Resp 16; Pulse Ox 100% on R/A; jb4 11/29 22:40 Body Mass Index 32.42 (83.01 kg, 160.02 cm) jb4 Grafton Coma Score: 11/29 22:40 Eye Response: spontaneous(4). Verbal Response: oriented(5). Motor Response: obeys jb4 commands(6). Total: 15. Trauma Score (Adult): 22:40 Eye Response: spontaneous(1); Verbal Response: oriented(1); Motor Response: obeys jb4 commands(2); Systolic BP: > 89 mm Hg(4); Respiratory Rate: 10 to 29 per min(4); Grafton Score: 15; Trauma Score: 12 23:40 Eye Response: spontaneous(1); Verbal Response: oriented(1); Motor Response: obeys jb4 commands(2); Systolic BP: > 89 mm Hg(4); Respiratory Rate: 10 to 29 per min(4); Radha Score: 15; Trauma Score: 12 MDM: 22:33 Patient medically screened. rn 11/30 01:55 ED course: Still waiting on CT face results. . rn 02:28 Differential diagnosis: abrasion, closed head injury, contusion, fracture. Data rn reviewed: vital signs, nurses notes, radiologic studies, CT scan, and as a result, I will discharge patient. Counseling: I had a detailed discussion with the patient and/or guardian regarding: the historical points, exam findings, and any diagnostic results supporting the discharge/admit diagnosis, lab results, radiology results, the need for outpatient follow up, to return to the emergency department if symptoms worsen or persist or if there are any questions or concerns that arise at home. Response to treatment: the patient's symptoms have mildly improved after treatment, and as a result, I will discharge patient. 02:28 ED course: No evidence of entrapment, will dc home with ophtho f/u. . rn 11/29 22:38 Order name: CT Head C Spine rn 11/29 22:38 Order name: CT Facial Bones W/O Con rn 11/30 00:08 Order name: Head C Spine Mpr Wo Con [facility] 11/30 00:08 Order name: Facial Bones W/ Mpr EDMS Administered Medications: 01:50 Drug: Tylenol-Codeine #3 (300 mg - 30 mg) 1 tablet {Note: rass score 0.} Route: PO; 4 02:50 Follow up: Response: No adverse reaction; Pain is decreased; RASS: Alert and Calm (0) [facility] 03:00 Drug: Augmentin 875 mg Route: PO; 4 03:05 Follow up: Response: No adverse reaction; Medication administered at discharge. jb4 Disposition: 11/30/19 02:28 Discharged to Home. Impression: Fracture of orbital floor. - Condition is Stable. - Discharge Instructions: Orbital Floor Fracture Without Entrapment. - Prescriptions for Augmentin 875- 125 mg Oral Tablet - take 1 tablet by ORAL route every 12 hours for 10 days; 20 tablet. Tramadol 50 mg Oral Tablet - take 1 tablet by ORAL route every 8 hours as needed; 15 tablet. - Medication Reconciliation Form, Thank You Letter, Antibiotic Education, Prescription Opioid Use form. - Follow up: Tomasa Dudley; When: 2 - 3 days; Reason: Recheck today's complaints, Re-evaluation by your physician. - Problem is new. - Symptoms have improved. Signatures: Dispatcher [employer] [facility] Joao Ambrose MD MD rn Bryson, James, RN RN jb4 Corrections: (The following items were deleted from the chart) 11/29 23:46 23:45 CT HEAD,C-SPINT W/O ordered. [facility] 11/30 00:04 11/29 23:45 Facial Bones W/ Mpr ordered. [facility] 11/30 00:04 11/29 23:45 Head C Spine Mpr Wo Con ordered. [facility] 11/30 03:10 02:28 11/30/2019 02:28 Discharged to Home. Impression: Fracture of orbital floor. jb4 Condition is Stable. Discharge Instructions: Orbital Floor Fracture Without Entrapment. Prescriptions for Augmentin 875-125 mg Oral Tablet - take 1 tablet by ORAL route every 12 hours for 10 days; 20 tablet, Tramadol 50 mg Oral Tablet - take 1 tablet by ORAL route every 8 hours as needed; 15 tablet. and Forms are Medication Reconciliation Form, Thank You Letter, Antibiotic Education, Prescription Opioid Use. Follow up: Tomasa Dudley; When: 2 - 3 days; Reason: Recheck today's complaints, Re-evaluation by your physician. Problem is new. Symptoms have improved. rn
--- NOTE | 2019-11-30 02:29 | ER ---
Nurse's Notes [facility] Name: Geraldo Solis Age: 69 yrs Sex: Male : 1950 Arrival Date: 11/29/2019 Time: 22:32 Bed 7 Private MD: Diagnosis: Fracture of orbital floor Presentation: 11/29 22:40 Presenting complaint: EMS states: PT reports that he stumbled and fell while trying to jb4 ambulated to the restroom. Denies LOC, has a hematoma to the left eye and is complaining of neck pain. Last b/p 156/110. PT remains alert and oriented. 22:40 Care prior to arrival: None. Mechanism of Injury: Fall from standing position. Trauma jb4 event details: Injury occurred in the [facility]. 22:40 Acuity: MARKO 2 jb4 22:40 Method Of Arrival: EMS: [facility] 4 22:40 Transition of care: patient was received from another setting of care (long-term care [facility] facility), [facility]. 22:40 Onset of symptoms was November 29, 2019. Risk Assessment: Do you want to hurt yourself [facility] or someone else? Patient reports no desire to harm self or others. Initial Sepsis Screen: Does the patient meet any 2 criteria? No. Patient's initial sepsis screen is negative. Does the patient have a suspected source of infection? No. Patient's initial sepsis screen is negative. Historical: - Allergies: 22:40 No Known Allergies; jb4 - Home Meds: 22:40 carbidopa-levodopa 25-100 mg Oral tab 1 tab 3 times per day [Active]; citalopram 40 mg jb4 tab 1 tab once daily [Active]; Cymbalta 60 mg oral cpDR 1 cap once daily [Active]; Depakote ER 500 mg Oral Tb24 2 tabs once daily [Active]; Depakote ER 500 mg Oral Tb24 3 tabs nightly [Active]; GlycoLax 17 gram/dose oral powd once daily [Active]; memantine 10 mg oral tab 1 tab 2 times per day [Active]; quetiapine 200 mg oral tab 1 tab 2 times per day [Active]; rivastigmine tartrate 6 mg oral cap 1 cap 2 times per day [Active]; - PMHx: 22:40 Bipolar disorder; Diabetes - NIDDM; Hypertension; Parkinsons; Dementia; constipation; jb4 Schizophrenia; - PSHx: 22:40 left knee; arm surgery - right; jb4 - Immunization history: Last tetanus immunization: unknown. - Coronavirus screen:: The patient has NOT traveled to [place] in the past 14 days. Proceed with normal triage process as indicated. The patient has NOT had contact with known/suspected case of Coronavirus? Proceed with normal triage procedures. - Family history:: not pertinent. - Social history:: Smoking status: Patient denies any tobacco usage or history of. Patient/guardian denies using alcohol, street drugs. - Hospitalizations: : No recent hospitalization is reported. - Ebola Screening: : No symptoms or risks identified at this time. Screenin:40 Abuse screen: Denies threats or abuse. Nutritional screening: No deficits noted. jb4 Tuberculosis screening: No symptoms or risk factors identified. Fall risk At risk due to injury, prior history of falls, Intervention for positive screen: ED Physician notified. 22:40 Fall Risk Fall in past 12 months (25 points). Secondary diagnosis (15 points) jb4 Alzheimer's, dementia, Mental Status- Oriented to own ability (0 pts). Total Morfin Fall Scale indicates Low Risk Score (25-44 pts). Fall prevention measures have been instituted. Side Rails Up X 2 Placed close to Nursing Station Frequent Obs/Assesments occuring Family Present and informed to notify staff if they need to leave bedside As available Patient and Family Educated on Fall Prevention Program and strategies. Primary Survey: 22:40 NO uncontrolled hemorrhage observed. A: The patient is alert. Airway: patent, No jb4 supplemental oxygen in use on arrival. Oral cavity: clear, gag reflex present. Breathing/Chest: Respiratory pattern: regular, Respiratory effort: spontaneous, unlabored, Chest inspection: symmetrical rise and fall of the chest. Circulation: Skin color: pink, Skin temperature: warm, dry. Disability Alert. Exposure/Environment: All clothing and personal items were removed. Clothing may be used as evidence. Items were removed and preserved. There is no evidence of uncontrolled external bleeding. A warming method has been applied: A warm blanket has been provided to the patient. 23:40 Reassessment Airway Airway Patent Breathing/Chest Respiratory pattern Regular jb4 Respiratory effort Spontaneous Unlabored Chest inspection Symmetrical Circulation Color [place] Temperature Warm Dry Disability Alert. Assessment: 22:40 General: Appears in no apparent distress. uncomfortable, Behavior is calm, cooperative, jb4 appropriate for age. Pain: Complains of pain in face and neck Pain does not radiate. Pain currently is 8 out of 10 on a pain scale. Quality of pain is described as throbbing. Neuro: Level of Consciousness is awake, alert, obeys commands, Oriented to person, place, time, situation, Hostel Parent are equal bilaterally Moves all extremities. Full function Speech is normal, Facial symmetry appears normal, Pupils are PERRLA, Intact. Cardiovascular: Patient's skin is warm and dry. Respiratory: Airway is patent Respiratory effort is even, unlabored, Respiratory pattern is regular, symmetrical. GI: No signs and/or symptoms were reported involving the gastrointestinal system. : No signs and/or symptoms were reported regarding the genitourinary system. EENT: No signs and/or symptoms were reported regarding the EENT system. Derm: Skin is intact, Skin is pink, warm \T\ dry. Musculoskeletal: Circulation, motion, and sensation intact. Range of motion: intact in all extremities. Injury Description: Bruise sustained to left eye is red, purple, black. 23:30 Reassessment: Patient appears in no apparent distress at this time. Patient and/or jb4 family updated on plan of care and expected duration. Pain level reassessed. Patient is alert, oriented x 3, equal unlabored respirations, skin warm/dry/pink. 11/30 00:00 Reassessment: Patient appears in no apparent distress at this time. Patient and/or jb4 family updated on plan of care and expected duration. Pain level reassessed. Patient is alert, oriented x 3, equal unlabored respirations, skin warm/dry/pink. 01:00 Reassessment: Patient appears in no apparent distress at this time. Patient and/or jb4 family updated on plan of care and expected duration. Pain level reassessed. Patient is alert, oriented x 3, equal unlabored respirations, skin warm/dry/pink. Family is at the bedside. Pt is resting comfortably in bed. 02:00 Reassessment: Patient appears in no apparent distress at this time. No changes from jb4 previously documented assessment. Patient and/or family updated on plan of care and expected duration. Pain level reassessed. Patient is alert, oriented x 3, equal unlabored respirations, skin warm/dry/pink. 03:00 Reassessment: Patient appears in no apparent distress at this time. Patient and/or jb4 family updated on plan of care and expected duration. Pain level reassessed. Patient is alert, oriented x 3, equal unlabored respirations, skin warm/dry/pink. Pt reports feeling better after taking the Tylenol #3. Pt's verbalized understanding of d/c and follow up instructions. Pt assisted to vehicle via wheelchair. and pt denies questions or concerns. Vital Signs: 11/29 22:40 BP 166 / 103; Pulse 83; Resp 18; Temp 97.6(TE); Pulse Ox 97% on R/A; Weight 83.01 kg jb4 (R); Height 5 ft. 3 in. (160.02 cm) (R); Pain 8/10; 23:40 BP 191 / 90; Pulse 90; Resp 18; Pulse Ox 99% on R/A; jb4 11/30 00:00 BP 149 / 87; Pulse 72; Resp 16; Pulse Ox 99% on R/A; jb4 01:00 BP 170 / 76; Pulse 70; Resp 16; Pulse Ox 100% on R/A; jb4 02:00 BP 167 / 86; Pulse 74; Resp 16; Pulse Ox 100% on R/A; jb4 11/29 22:40 Body Mass Index 32.42 (83.01 kg, 160.02 cm) jb4 Franklin Coma Score: 11/29 22:40 Eye Response: spontaneous(4). Verbal Response: oriented(5). Motor Response: obeys jb4 commands(6). Total: 15. Trauma Score (Adult): 22:40 Eye Response: spontaneous(1); Verbal Response: oriented(1); Motor Response: obeys jb4 commands(2); Systolic BP: > 89 mm Hg(4); Respiratory Rate: 10 to 29 per min(4); Franklin Score: 15; Trauma Score: 12 23:40 Eye Response: spontaneous(1); Verbal Response: oriented(1); Motor Response: obeys jb4 commands(2); Systolic BP: > 89 mm Hg(4); Respiratory Rate: 10 to 29 per min(4); Radha Score: 15; Trauma Score: 12 ED Course: 22:32 Patient arrived in ED. ds1 22:33 Joao Ambrose MD is Attending Physician. rn 22:40 Patient has correct armband on for positive identification. Placed in gown. Bed in low jb4 position. Call light in reach. Side rails up X2. 22:40 Arm band placed on right wrist. jb4 22:40 Pulse ox on. NIBP on. jb4 22:40 Patient maintains SpO2 saturation greater than 95% on room air. jb4 22:40 Thermoregulation: warm blanket given to patient. jb4 22:52 Lopez Khoury, RN is Primary Nurse. jb4 23:12 Triage completed. jb4 11/30 00:08 Head C Spine Mpr Wo Con In Process Unspecified. EDMS 00:08 Facial Bones W/ Mpr In Process Unspecified. EDMS 02:28 Tomasa Dudley MD is Referral Physician. rn 03:09 No provider procedures requiring assistance completed. Patient did not have IV access jb4 during this emergency room visit. Administered Medications: 01:50 Drug: Tylenol-Codeine #3 (300 mg - 30 mg) 1 tablet {Note: rass score 0.} Route: PO; jb4 02:50 Follow up: Response: No adverse reaction; Pain is decreased; RASS: Alert and Calm (0) jb4 03:00 Drug: Augmentin 875 mg Route: PO; jb4 03:05 Follow up: Response: No adverse reaction; Medication administered at discharge. jb4 Intake: 03:09 PO: 0ml; Total: 0ml. jb4 Output: 03:09 Urine: 300ml (Voided); Total: 300ml. jb4 Outcome: 02:28 Discharge ordered by . rn 03:06 Discharged to care home. jb4 03:06 Condition: stable 03:06 Discharge instructions given to patient, family, care home, Instructed on discharge instructions, follow up and referral plans. medication usage, Demonstrated understanding of instructions, follow-up care, medications, Prescriptions given X 2. 03:06 Patient's length of stay in the Emergency Department was greater than 2 hours. Pt d/c'ed to care home.Patient's length of stay extended due to 03:10 Patient left the ED. jb4 Signatures: Dispatcher [employer] [facility] Cecilia Becker ds1 Ambrose, Joao, MD MD rn Peng, Lopez, RN RN jb4
[2019-11-30] MEDS ORDERED: AMOX/K CLAV 875 MG TAB ONE (03:00)
[2019-11-30 05:05] VITALS: TEMP 97.6
[2019-11-30 05:08] VITALS: O2SAT 100
[2019-11-30 05:09] VITALS: BP 167/86
--- NOTE | 2019-11-30 13:07 | RAD REPORT ---
EXAM DESCRIPTION: CT - [id number] - 11/30/2019 3:35 am CLINICAL HISTORY: The patient is 69 years old and is Male; FELL pain TECHNIQUE: Axial computed tomography images of the head/brain and cervical spine without intravenous contrast. Sagittal and coronal reformatted images were created and reviewed. This CT exam was pe rformed using one or more of the following dose reduction techniques: automated exposure control, a djustment of the mA and/or kV according to patient size, and/or use of iterative reconstruction techn ique. COMPARISON: No relevant prior studies available. FINDINGS: BRAIN: There is diffuse cerebral atrophy present, consistent with this patient's age. There is patchy hypoattenuation of the deep white matter which is non-specific, but most likely owing to chronic small vessel ischemic change in a patient of this age group. No hemorrhage. VENTRICLES: There is diffuse prominence of the ventricles, which is likely related to central at rophy. SKULL: No acute fracture. SINUSES: High density material fills the left maxillary sinus. MASTOID AIR CELLS: Unremarkable as visualized. No mastoid effusion. ORBITS: A left orbital floor fracture is present. VERTEBRAE: See above. DISCS/SPINAL CANAL/NEURAL FORAMINA: Multilevel degenerative change of the spine is present. Inte rvertebral disc space narrowing with discal calcification osteophyte formation is present. Mild neura l foraminal narrowing at multiple levels is noted most prominent at C3-C4. SOFT TISSUES: Minimal left periorbital soft tissue swelling is present. LUNG APICES: Unremarkable as visualized. IMPRESSION: 1. No acute intracranial findings. 2. Moderate spondylosis of the cervical spine without acute findings. 3. Hemorrhage within the left maxillary sinus with associated left orbital floor fracture. Electronically signed by: Lucina Gasca MD 11/30/2019 1:01 AM FILM INSPECTOR Due to temporary technical issues with the PACS/Fluency reporting system, reports are being signed by the in house radiologist as a courtesy to ensure prompt reporting. The interpreting radiologist is f ully responsible for the content of the report.
--- NOTE | 2019-11-30 13:17 | RAD REPORT ---
EXAM DESCRIPTION: CT - Facial Bones W/ Mpr - 11/30/2019 3:35 am CLINICAL HISTORY: FELL COMPARISON: None. TECHNIQUE: CT MAXILLOFACIAL WITHOUT IV CONTRAST on 11/29/2019 10:48 PM BRICK MAKER This exam was performed according to our departmental dose-optimization program, which includes autom ated exposure control, adjustment of the mA and/or kV according to patient size and/or use of iterati ve reconstruction technique. FINDINGS: There is a mildly depressed fracture of the left orbital floor. There is a mucous retentio n cyst in the right maxillary sinus. Left maxillary sinus is nearly completely opacified. Orbits and globes are unremarkable. Mastoid air cells are clear. Temporomandibular joints are intact. There are no significant soft tissue abnormalities. IMPRESSION: Left orbital floor fracture with no evidence of extraocular muscle entrapment. Electronically signed by: Eyad Epperson MD 11/30/2019 2:03 AM BRICK MAKER Due to temporary technical issues with the PACS/Fluency reporting system, reports are being signed by the in house radiologist as a courtesy to ensure prompt reporting. The interpreting radiologist is f ully responsible for the content of the report.
== END 2019-11-30 03:10 | disposition home or self-care (01) ==
LOC: ER 22:31
DX: S02.30XA Fracture of orbital floor, unspecified side, initial encounter for closed fracture (principal); W19.XXXA Unspecified fall, initial encounter; Y93.01 Activity, walking, marching and hiking; Y92.9 Unspecified place or not applicable; I10 Essential (primary) hypertension; E11.9 Type 2 diabetes mellitus without complications; G20 Parkinson's disease; F02.80 Dementia in other diseases classified elsewhere, unspecified severity, without behavioral disturbance, psychotic disturbance, mood disturbance, and anxiety
CPT/HCPCS: 70450; 70486; 72125; 76377; 99284

== ENCOUNTER 2021-01-01 09:13 | Day surgery (SDC) | payer OTHER ==
[2020-12-27 13:13] LABS: Absolute Lymphocytes (CBC) 2.5 K/uL (0.7-4.9); Basophils % 0.7 % (0-1.3); Hematocrit 48.7 % (39.6-49.0); Lymphocytes % 31.2 % (15.3-44.8); MPV 9.8 fL (7.6-11.3); RBC Red Blood Cell Count 5.28 M/uL (4.33-5.43)
[2020-12-27 13:21] LABS: Urine Appearance CLEAR; Urine Bilirubin NEGATIVE (NEG); Urine Blood NEGATIVE (NEG); Urine Color YELLOW; Urine Glucose 3+ (NEG); Urine Protein TRACE (NEG); Urine Specific Gravity >=1.030 (1.005-1.030)
[2020-12-27 13:22] LABS: ALT/SGPT 11 U/L (12-78); AST/SGOT 16 U/L (15-37); Albumin 3.5 g/dL (3.4-5.0); Alkaline Phosphatase 124 U/L (45-117); BUN Blood Urea Nitrogen 16 mg/dL (7-18); Bicarbonate 29 mmol/L (21-32); Bilirubin Total 0.5 mg/dL (0.2-1.0); Glucose Level 228 mg/dL (74-106); Potassium 4.1 mmol/L (3.5-5.1); Protein, Total 7.5 g/dL (6.4-8.2); Sodium Level 135 mmol/L (136-145)
[2020-12-27 13:26] LABS: Urine Microscopic Reflex ORDER UMIC
[2020-12-27 13:36] LABS: Urine Bacteria <20 /HPF (NONE SEEN); Urine RBC NONE SEEN /HPF (NONE SEEN)
[2020-12-27 13:56] LABS: Protime INR 0.93
--- NOTE | 2020-12-27 19:36 | RAD REPORT ---
EXAM DESCRIPTION: RAD - Chest Pa And Lat (2 Views) - 12/27/2020 1:08 pm CLINICAL HISTORY: pre op, pending circumcision COMPARISON: Two view chest March 2019 TECHNIQUE: Frontal and lateral views of the chest were obtained. FINDINGS: The lungs are clear. Right hemidiaphragm elevation again noted. No hilar mass or lymphade nopathy. Interstitial pattern is stable. Heart size is normal and central vasculature is within kash l limits. No pleural effusion or pneumothorax seen. No acute bony finding noted. No aortic abnorma lity. No significant change from comparison study. IMPRESSION: No acute cardiopulmonary process.
--- NOTE | 2020-12-28 15:03 | EKG ---
Test Date: 2020-12-27 Test Time: 11:33:44 Loan Underwriter: RUSSEL MEASUREMENT RESULTS: Intervals: Rate: 87 AK: 138 QRSD: 76 QT: 338 QTc: 406 Epes: P: 37 AK: 138 QRS: 61 T: 68 INTERPRETIVE STATEMENTS: Normal sinus rhythm Possible Inferior infarct, age undetermined Anterior infarct, age undetermined Abnormal ECG Compared to ECG 04/25/2019 13:01:02 No significant changes Electronically Signed On 12-28-20 15:01:56 CDT by Matt Neville
[2021-01-01] MEDS ORDERED: NA CHLORIDE 0.9% 1,000 ML ONE (09:58)
[2021-01-01] MEDS ORDERED: CEFAZOLIN/SWI 2gm 2 GM/20 ML SYR ONE (09:58)
[2021-01-01] MEDS: BUPIVACAINE 0.25% PF 30 ML VIAL ONE ×2 (11:23→12:05)
[2021-01-01] MEDS: LIDOCAINE 1% MPF 30 ML VIAL ONE ×2 (11:24→12:05)
[2021-01-01] MEDS ORDERED: BACITRACIN OINTMENT 15 GM TUBE TOP ONE (11:30)
[2021-01-01] MEDS ORDERED: FENTANYL CITR 100 MCG/2 ML ONE (11:34)
[2021-01-01] MEDS ORDERED: propofoL 200 MG/20 ML VIAL IV ONE (11:34)
[2021-01-01] MEDS ORDERED: MIDAZOLAM HCL 2 MG/2 ML INJ ONE (11:34)
[2021-01-01] MEDS ORDERED: dexAMETHasone 10 MG/ML VIAL ONE (11:34)
[2021-01-01] MEDS ORDERED: ONDANSETRON 4 MG/2 ML VIAL ONE (11:35)
[2021-01-01] MEDS ORDERED: KETOROLAC 30 MG/ML INJ ONE (11:35)
[2021-01-01] MEDS ORDERED: LIDOCAINE 1% MPF 5 ML VIAL ONE (11:35)
[2021-01-01 13:56] VITALS: BP 164/75; TEMP 96.8; O2SAT 97
--- NOTE | 2021-01-01 16:15 | OP ---
Surgeon: JORGITO LEO Preoperative Diagnoses: 1.Phimosis. 2.Buried penis. 3.Posthitis. Postoperative Diagnoses: 1.Phimosis. 2.Buried penis. 3.Posthitis. Principle Procedure: Sleeve circumcision. Indication For Procedure: Mr. Solis is a 70-year-old gentleman who has multiple medical comorbidities and developed issues of obesity and a buried penis that resulted in severe retraction of the phallus and eventually development of phimosis with posthitis. Despite attempts at treatment with ointments like triamcinolone and nystatin, the posthitis failed to improve. He was thus counseled on options for management and initially elected outpatient dorsal slit, which was performed. Unfortunately, aft er the procedure, where the glans was easily visualizable and the foreskin was easily retractable, th e scar tissue progressed and eventually re-obscured the glans penis resulting in recurrence of the ph imosis. As a result, he elected to proceed today with definitive operative circumcision. Procedure In Detail: The patient was consented in the preoperative holding area before being transfe rred to the operative suite where general anesthesia was induced. He was given Ancef 2 g IV antimicr obial prophylaxis, and pneumo boots were provided for DVT prophylaxis. He was placed supine on the p rocedure table, padded and secured appropriately. His genitalia were shaved using the shaver before being prepped with Betadine and draped in standard fashion. The case was begun by injecting a 1:1 mi xture of 1% lidocaine and 0.25% Marcaine into the infrapubic region as a penile block. A total of 20 mL were administered. Additional care was then taken using Q-tip swabs and Betadine to cleanse bene ath the foreskin. After unfolding the overlapping foreskin from within the retracted phallus, a stra ight clamp was applied dorsally in order to recreate a dorsal slit. I then identified the ventral ex tent of the prepuce and incised circumferentially. At this point, I was then able to completely retr act the shaft skin and visualize the glans. Using snaps to retract the unwanted skin, I then incised the remainder of what would become the preputial margin and excised the intervening tissue using Bov ie electrocautery. Once this was done, careful attention was then paid to pinpoint Bovie fulguration of all oozing or bleeding vessels. Irrigation was applied intermittently to confirm adequate hemost asis. Once completed, 3-0 chromic was then applied to create quadrant sutures and intermittent sutur e of 3-0 chromic was applied to reapproximate the tissue in between until the entirety of the circumc ision was reapproximated and was cosmetically appropriate. Any additional oozing noted between the s utures was ligated by applying additional interrupted sutures of 3-0 chromic. In the end, the area w as nicely hemostatic, and the skin was not overhanging the glans. Wet and dry was applied to cleanse away the Betadine, and a Talon and Coban were applied for gentle pressure application. The patient was then awakened from general anesthesia, transferred to a stretcher, and then transferred to the re covery room in good condition. Complications: None. Discharge Disposition: He will follow up in the Urology Clinic with nurse Mario valente in approximately 2-3 weeks and with mt subsequently in approximately 2-3 months. He should continue to apply bacitracin/Neosporin to the glans at least twice a day and upon reassessment with nurse practit Mario jung, any decision can be made with regard to whether he might benefit from additional pablito atment with the nystatin and triamcinolone ointment. MANAS/OXANA Voice ID: [id number] Report ID: [id number]
== END 2021-01-01 14:30 ==
LOC: OR 09:13
PROVIDERS: ATTEND Urology
PROC: 0VTTXZZ Resection of Prepuce, External Approach (ICD-10-PCS; principal; 2021-01-01 10:45)
DX: N47.7 Other inflammatory diseases of prepuce (principal); N47.1 Phimosis; Q55.64 Hidden penis; Z20.822 Contact with and (suspected) exposure to COVID-19
CPT/HCPCS: 93005; 87088; 85025; 87086; 36415; 85610; 82947 ×2; 88304; 85730; 80053; 71046; 54150; U0002; J2704; J2250; J3010; J1100; J0690; J7030; J2405; 81003; 81015

== ENCOUNTER 2022-06-04 01:36 | Emergency (ER) | payer OTHER ==
--- OUTSIDE RECORDS SUMMARY | 2022-06-04 01:40 | XMS REPORT | Continuity of Care Document ---
:1950 Author Organization [facility] t Address [address] [place] [address] Care Team Providers Name Role Phone Pcp, Patient Does Not Have A Primary Care Physician +[id number] NICOLAS MOHAN Attending Clinician Unavailable Therapy, [facility]fusion Attending Clinician Unavailable Nicolas Mohan MD Attending Clinician Doctor Unassigned, [place] Attending Clinician Unavailable Payers Payer Name Policy Type Policy Number Effective Date Expiration Date S miguel MEDICARE PART A [id number] 2014 \T\ B 00:00:00 Problems This patient has no known problems. Allergies, Adverse Reactions, Alerts Allergy Allergy Status Severity Reaction(s) Onset Inactive Treating Comm ents Source Name Type Date Date Clinician NO KNOWN Drug Active Univers ALLERGIE Class ity of S [facility] Social History Social Habit Start Date Stop Date Quantity Comments Source Sex Assigned At [birth year] [facility] 00:00:00 00:00:00 [facility] Smoking Status Start Date Stop Date Source Unknown if ever smoked [facility] Medications Ordered Filled Start Stop Current Ordering Indication Dosage Frequency Signature Comments Components Source Medication Medication Date Date Medication? Clinician (SIG) Name Name casirivimab 2020- No [id number] 1200mg 1,200 mg, Univers -imdevimab 06-27 Subcutaneo it y of (REGEN-COV 21:15: 19:59 us, ONCE, [place] (EUA)) 00 :00 1 dose, On Medical injection [facility] 1,200 mg 06/27/21 at 1615, Routine Vital Signs Vital Name Observation Time Observation Value Comments Source Systolic blood 2021-06-27 20:46:00 149 mm[Hg] Univer sity of pressure [facility] Diastolic blood 2021-06-27 20:46:00 78 mm[Hg] Unive rsity of [facility] Heart rate 2021-06-27 20:46:00 81 /min [facility] Body temperature 2021-06-27 20:46:00 36 Qiana [facility] Res[facility] rate 2021-06-27 20:46:00 18 /min [facility] Oxygen saturation in 2021-06-27 20:46:00 95 /min [facility] Arterial blood by [facility] Pulse oximetry [place] Body height 2021-06-27 19:56:00 160 cm [facility] Body weight 2021-06-27 19:56:00 87.544 kg [facility] BMI 2021-06-27 19:56:00 34.19 kg/m2 [facility] Procedures Procedure Date / Time Performed Performing Clinician Sour e CONSENT/REFUSAL FOR 2021-06-27 05:01:00 Doctor Unassigned, No Un [facility] DIAGNOSIS AND Name [facility] TREATMENT Encounters Start End Encounter Admission Attending Care Care Encounter Source Date/Time Date/Time Type Type Clinicians Facility Department ID 2021-06-29 2021-06-29 Outpatient [facility] [id number] Univers 10:00:00 10:00:00 [id number] chio [facility] 2021-06-27 2021-06-27 Outpatient Bob MOHAN [facility] [id number] Univers 15:30:00 15:30:00 NICOLAS barroso [facility] 2021-06-27 2021-06-27 Nurse Therapy, [facility] [id number] Univers 13:22:04 14:22:04 [id number] [place] [facility] [id number] [place] [id number] Branch 2021-06-27 2021-06-27 Orders Doctor CITLALLI [id number] Univers 00:00:00 00:00:00 Only Unassigned, CONNER [id number] ity of [place] [facility] [id number] Angel Luis as [phone] [facility] 009 Branch Results This patient has no known results.
--- NOTE | 2022-06-04 02:10 | EDPHYS ---
Physician Documentation [facility] Name: Geraldo Solis Age: 71 yrs Sex: Male : 1950 Arrival Date: 06/04/2022 Time: 01:38 Bed 2 Private MD: ED Physician Juliocesar Martinez HPI: 06/04 02:04 This 71 yrs old Male presents to ER via EMS with complaints of FALL OUT OF BED rhonda , HIT HEAD. 02:04 The patient or guardian reports injury, pain. The complaints affect the top of head and rhonda left frontal area. Context of injury: The problem was sustained at a prison or assisted living facility. Onset: The symptoms/episode began/occurred just prior to arrival. Associated signs and symptoms: The patient has no apparent associated signs or symptoms, Loss of consciousness: This patient did not experience any loss of consciousness. The patient has not experienced similar symptoms in the past. Historical: - Allergies: 01:58 No Known Allergies; as6 - Home Meds: 01:58 atorvastatin 20 mg Oral tab 1 tab once daily [Active]; carbidopa-levodopa 25-100 mg as6 Oral tab 1 tab 3 times per day [Active]; Cymbalta 60 mg Oral cpDR 1 cap once daily [Active]; citalopram 40 mg tab 1 tab once daily [Active]; Depakote ER 500 mg Oral Tb24 2 tabs once daily [Active]; GlycoLax 17 gram/dose Oral powd once daily [Active]; memantine 10 mg Oral tab 1 tab 2 times per day [Active]; quetiapine 200 mg Oral tab 1 tab 2 times per day [Active]; rivastigmine tartrate 6 mg Oral cap 1 cap 2 times per day [Active]; repaglinide 2 mg Oral tab 1 tab 2 times per day [Active]; - PMHx: 01:58 Bipolar disorder; constipation; Dementia; Diabetes - NIDDM; Hypertension; Parkinsons; as6 Schizophrenia; - Immunization history:: Adult Immunizations up to date, Client reports receiving the 2nd dose of the Covid vaccine. - Social history:: Smoking status: Patient denies any tobacco usage or history of. - Immunization history: Last tetanus immunization: - up to date. - Family history:: not pertinent. ROS: 02:04 Constitutional: Negative for fever, chills, and weight loss, Eyes: Negative for injury, rhonda pain, redness, and discharge, ENT: Negative for injury, pain, and discharge, Neck: Negative for injury, pain, and swelling, Cardiovascular: Negative for chest pain, palpitations, and edema, Respiratory: Negative for shortness of breath, cough, wheezing, and pleuritic chest pain, Abdomen/GI: Negative for abdominal pain, nausea, vomiting, diarrhea, and constipation, Back: Negative for injury and pain, : Negative for injury, bleeding, discharge, and swelling, MS/Extremity: Negative for injury and deformity, Skin: Negative for injury, rash, and discoloration, Neuro: Negative for headache, weakness, numbness, tingling, and seizure, Psych: Negative for depression, anxiety, suicide ideation, homicidal ideation, and hallucinations, Allergy/Immunology: Negative for hives, rash, and allergies, Endocrine: Negative for neck swelling, polydipsia, polyuria, polyphagia, and marked weight changes, Hematologic/Lymphatic: Negative for swollen nodes, abnormal bleeding, and unusual bruising. Exam: 02:04 Constitutional: This is a well developed, well nourished patient who is awake, alert, rhonda and in no acute distress. Head/Face: Normocephalic, atraumatic. Eyes: Pupils equal round and reactive to light, extra-ocular motions intact. Lids and lashes normal. Conjunctiva and sclera are non-icteric and not injected. Cornea within normal limits. Periorbital areas with no swelling, redness, or edema. ENT: Nares patent. No nasal discharge, no septal abnormalities noted. Tympanic membranes are normal and external auditory canals are clear. Oropharynx with no redness, swelling, or masses, exudates, or evidence of obstruction, uvula midline. Mucous membranes moist. Neck: Trachea midline, no thyromegaly or masses palpated, and no cervical lymphadenopathy. Supple, full range of motion without nuchal rigidity, or vertebral point tenderness. No Meningismus. Chest/axilla: Normal chest wall appearance and motion. Nontender with no deformity. No lesions are appreciated. Cardiovascular: Regular rate and rhythm with a normal S1 and S2. No gallops, murmurs, or rubs. Normal PMI, no JVD. No pulse deficits. Respiratory: Lungs have equal breath sounds bilaterally, clear to auscultation and percussion. No rales, rhonchi or wheezes noted. No increased work of breathing, no retractions or nasal flaring. Abdomen/GI: Soft, non-tender, with normal bowel sounds. No distension or tympany. No guarding or rebound. No evidence of tenderness throughout. Back: No spinal tenderness. No costovertebral tenderness. Full range of motion. Skin: Warm, dry with normal turgor. Normal color with no rashes, no lesions, and no evidence of cellulitis. MS/ Extremity: Pulses equal, no cyanosis. Neurovascular intact. Full, normal range of motion. Psych: Awake, alert, with orientation to person, place and time. Behavior, mood, and affect are within normal limits. 02:04 Neuro: Mentation: is normal, appropriate for stated age, no acute changes, Memory: is normal, appropriate for stated age, no acute changes, Cranial nerves: grossly normal, is grossly normal based on the patient's age, no acute changes, Cerebellar function: is grossly normal, is grossly normal based on the patient's age, no acute changes, Motor: is normal, Sensation: is normal, no obvious gross deficits, appropriate Gait: not applicable Babinski testing is normal. Vital Signs: 01:35 BP 173 / 82; Pulse 76; Resp 18; Temp 98.0(O); Pulse Ox 98% on R/A; Weight 90.26 kg (R); as6 Height 5 ft. 3 in. (160.02 cm) (R); Pain 7/10; 03:10 BP 126 / 69; Pulse 74; Resp 18; Pulse Ox 98% on R/A; vc1 04:07 BP 166 / 86; Pulse 76; Resp 20; Pulse Ox 99% ; vc1 01:35 Body Mass Index 35.25 (90.26 kg, 160.02 cm) as6 [place] Coma Score: 02:04 Eye Response: spontaneous(4). Verbal Response: oriented(5). Motor Response: obeys rhonda commands(6). Total: 15. 02:05 Eye Response: spontaneous(4). Verbal Response: oriented(5). Motor Response: obeys as6 commands(6). Total: 15. 02:07 Eye Response: spontaneous(4). Verbal Response: oriented(5). Motor Response: obeys rhonda commands(6). Total: 15. Trauma Score (Adult): 02:05 Eye Response: spontaneous(1); Verbal Response: oriented(1); Motor Response: obeys as6 commands(2); Systolic BP: > 89 mm Hg(4); Respiratory Rate: 10 to 29 per min(4); [place] Score: 15; Trauma Score: 12 MDM: 01:56 [facility] 02:07 Differential diagnosis: Contusion of Hematoma on Laceration of scalp. Data reviewed: [facility] vital signs, nurses notes, radiologic studies, CT scan. Data interpreted: media monitor: rate is 76 beats/min, rhythm is regular, Pulse oximetry: on room air is 98 %. Counseling: I had a detailed discussion with the patient and/or guardian regarding: the historical points, exam findings, and any diagnostic results supporting the discharge/admit diagnosis, radiology results, the need for outpatient follow up, for definitive care, a family practitioner. 06/04 02:04 Order name: CT Head C Spine vc1 06/04 02:11 Order name: Wound Care rhonda 06/04 02:11 Order name: Misc. Order: TETANUS IF NEEDED rhonda Administered Medications: No medications were administered Disposition Summary: 06/04/22 02:09 Discharge Ordered Location: Home rhonda Problem: new rhonda Symptoms: have improved rhonda Condition: Stable rhonda Diagnosis - Fall (on) (from) other stairs and steps - BED rhonda - Laceration without foreign body of other part of head - SCALP rhonda Followup: rhonda - With: Private Physician - When: 2 - 3 days - Reason: Recheck today's complaints, Continuance of care, Re-evaluation by your physician Discharge Instructions: - Discharge Summary Sheet rhonda - Head Injury, Adult rhonda - Laceration Care, Adult rhonda - Laceration Care, Adult, [id number]-[id number] rhonda - Fall Prevention in the Home, Adult, Lfik-lt-Roth rhonda - Head Injury, Adult, [id number]-[id number] rhonda Forms: - Medication Reconciliation Form rhonda - Thank You Letter rhonda - Antibiotic Education rhonda - Prescription Opioid Use rhonda - SBAR form bb Signatures: Dispatcher [employer] Juliocesar Baptiste MD MD cha Slawson, Ashby, RN RN as6
--- NOTE | 2022-06-04 02:10 | ER ---
Nurse's Notes [facility] Name: Geraldo Solis Age: 71 yrs Sex: Male : 1950 Arrival Date: 06/04/2022 Time: 01:38 Bed 2 Private MD: Diagnosis: Fall (on) (from) other stairs and steps-BED;Laceration without foreign body of other part of head-SCALP Presentation: 06/04 01:35 Chief complaint: EMS states: called out for fall. EMS reports pt was watching TV and as6 fell asleep in chair. pt fell out of chair and hit head. pt has abrasion to scalp and c/o right arm pain. Coronavirus screen: At this time, the client does not indicate any symptoms associated with coronavirus-19. Ebola Screen: No symptoms or risks identified at this time. Initial Sepsis Screen: Does the patient meet any 2 criteria? No. Patient's initial sepsis screen is negative. Does the patient have a suspected source of infection? No. Patient's initial sepsis screen is negative. Risk Assessment: Do you want to hurt yourself or someone else? Patient reports no desire to harm self or others. Onset of symptoms was June 04, 2022. 01:35 Method Of Arrival: EMS: [facility] as6 01:35 Acuity: MARKO 3 as6 02:00 Care prior to arrival: None. Mechanism of Injury: Fall out of chair. Trauma event as6 details: Injury occurred in the [facility], Injury occurred: at home. Injury occurred: June 04, 2022. Trauma Activation: Alert Physician: ED Physician; Name: ; Notified At: ; Arrived At: Physician: General Surgeon; Name: ; Notified At: ; Arrived At: Physician: Radiology; Name: ; Notified At: ; Arrived At: Physician: Respiratory; Name: ; Notified At: ; Arrived At: Physician: Lab; Name: ; Notified At: ; Arrived At: Historical: - Allergies: :58 No Known Allergies; as6 - Home Meds: :58 atorvastatin 20 mg Oral tab 1 tab once daily [Active]; carbidopa-levodopa 25-100 mg as6 Oral tab 1 tab 3 times per day [Active]; Cymbalta 60 mg Oral cpDR 1 cap once daily [Active]; citalopram 40 mg tab 1 tab once daily [Active]; Depakote ER 500 mg Oral Tb24 2 tabs once daily [Active]; GlycoLax 17 gram/dose Oral powd once daily [Active]; memantine 10 mg Oral tab 1 tab 2 times per day [Active]; quetiapine 200 mg Oral tab 1 tab 2 times per day [Active]; rivastigmine tartrate 6 mg Oral cap 1 cap 2 times per day [Active]; repaglinide 2 mg Oral tab 1 tab 2 times per day [Active]; - PMHx: 01:58 Bipolar disorder; constipation; Dementia; Diabetes - NIDDM; Hypertension; Parkinsons; as6 Schizophrenia; - Immunization history:: Adult Immunizations up to date, Client reports receiving the 2nd dose of the Covid vaccine. - Social history:: Smoking status: Patient denies any tobacco usage or history of. - Immunization history: Last tetanus immunization: - up to date. - Family history:: not pertinent. Screenin:01 Abuse screen: Denies threats or abuse. Denies injuries from another. Nutritional as6 screening: No deficits noted. Tuberculosis screening: No symptoms or risk factors identified. Fall Risk Fall in past 12 months (25 points). Total Morfin Fall Scale indicates Low Risk Score (25-44 pts). Fall prevention measures have been instituted. Primary Survey: 02:00 Reassessment Breathing: Spontaneous respiratory effort, equal unlabored respirations, vc1 breath sounds clear bilaterally, regular pattern with symmetrical chest rise and fall. 02:01 NO uncontrolled hemorrhage observed. A: The client is awake and alert. The airway is as6 patent. Breathing/Chest: Spontaneous respiratory effort, equal unlabored respirations, breath sounds clear bilaterally, regular pattern, symmetrical chest rise and fall. Breathing/Chest: Spontaneous respiratory effort, equal unlabored respirations, breath sounds clear bilaterally, regular pattern, symmetrical chest rise and fall. Circulation: No external hemorrhage present. Regular and strong central pulse, skin warm/dry/normal color. Disability Pupils are equal, round, reactive to light and accommodation. Client is alert. Exposure/Environment: A warming method has been applied: A warm blanket has been provided to the patient. Secondary Survey: 02:02 HEENT: Head. as6 02:03 HEENT: Head Other scalp abrasion. Gastrointestinal: No deficits noted. : No deficits as6 noted. Musculoskeletal: Reports pain in right arm. Assessment: 01:59 General: Appears in no apparent distress. Behavior is calm, cooperative. Pain: as6 Complains of pain in right arm. Neuro: Level of Consciousness is awake, alert. Respiratory: Respiratory effort is even, unlabored. Derm: Wound noted scalp Wound is abrasion. 03:06 Reassessment: No changes from previously documented assessment. Patient and/or family vc1 updated on plan of care and expected duration. Pain level reassessed. 04:05 Reassessment: Contacted [facility] and gave report. Instructed them that he will need vc1 transportation back. Nurse stated she will call me back. 04:07 Reassessment: No changes from previously documented assessment. Patient and/or family vc1 updated on plan of care and expected duration. Pain level reassessed. 04:17 Reassessment: retirement called and said [facility] will be here in approx 40 vc1 minutes. Vital Signs: 01:35 BP 173 / 82; Pulse 76; Resp 18; Temp 98.0(O); Pulse Ox 98% on R/A; Weight 90.26 kg (R); as6 Height 5 ft. 3 in. (160.02 cm) (R); Pain 7/10; 03:10 BP 126 / 69; Pulse 74; Resp 18; Pulse Ox 98% on R/A; vc1 04:07 BP 166 / 86; Pulse 76; Resp 20; Pulse Ox 99% ; vc1 01:35 Body Mass Index 35.25 (90.26 kg, 160.02 cm) as6 Radha Coma Score: 02:04 Eye Response: spontaneous(4). Verbal Response: oriented(5). Motor Response: obeys rhonda commands(6). Total: 15. 02:05 Eye Response: spontaneous(4). Verbal Response: oriented(5). Motor Response: obeys as6 commands(6). Total: 15. 02:07 Eye Response: spontaneous(4). Verbal Response: oriented(5). Motor Response: obeys rhonda commands(6). Total: 15. Trauma Score (Adult): 02:05 Eye Response: spontaneous(1); Verbal Response: oriented(1); Motor Response: obeys as6 commands(2); Systolic BP: > 89 mm Hg(4); Respiratory Rate: 10 to 29 per min(4); [place] Score: 15; Trauma Score: 12 ED Course: 01:38 Patient arrived in ED. mw2 01:52 Moshe Gleason, RN is Primary Nurse. as6 01:56 Juliocesar Martinez MD is Attending Physician. [facility] 01:58 Triage completed. as6 01:59 Arm band placed on. as6 02:05 Bed in low position. Call light in reach. Side rails up X2. as6 02:05 Patient maintains SpO2 saturation greater than 95% on room air. Thermoregulation: warm as6 blanket given to patient. 02:30 CT Head C Spine In Process Unspecified. EDMS 04:04 No provider procedures requiring assistance completed. Patient did not have IV access vc1 during this emergency room visit. Administered Medications: No medications were administered Medication: 04:06 VIS not applicable for this client. vc1 Intake: 02:05 PO: 0ml; Total: 0ml. as6 Outcome: 02:09 Discharge ordered by . [facility] 04:06 Patient's length of stay in the Emergency Department was greater than 2 hours. Waiting vc1 on transportation back to nursing homePatient's length of stay extended due to 04:37 Discharged to home via ambulance. vc1 04:37 Condition: good 04:37 Instructed on the need for admit. 04:37 Patient left the ED. vc1 Signatures: Dispatcher [employer] EDWI Juliocesar Martinez MD MD cha [place]brook, MyKena mw2 Moshe Gleason, RN RN as6 Nina Mancilla RN RN vc1
[2022-06-04 04:47] VITALS: BP 166/86; O2SAT 99
--- NOTE | 2022-06-04 15:55 | RAD REPORT ---
EXAM DESCRIPTION: Head C Spine Mpr Wo Con 06/04/2022 2:40 AM CDT CLINICAL HISTORY: 71 years, Male, Fall/Pain COMPARISON: 11/29/2019. FINDINGS: Multiple transaxial tomograms of the brain were obtained from the base of the skull to the vertex without contrast. 2-D multiplanar reformats and the coronal and sagittal plane were performed and reviewed. Multiple axial CT images through the cervical spine were obtained at 2 mm slice thickness at 2 mm int erval reconstruction. In addition 2-D multiplanar reformats and the sagittal coronal plane were perfo rmed and reviewed. This exam was performed according to our departmental dose-optimization protocol, which includes auto mated exposure control, adjustment of the mA and/or kV according to patient size and/or use of iterat naresh reconstruction technique. CT head: Brain parenchyma demonstrate prominence of the sulci and gyri are corresponding to cerebral and cerebellar atrophy. There is minimal periventricular white matter changes of microvascular ischem ia. There is no midline shift and/or mass effect. There is no evidence for acute intracranial hemorrh age. Lateral ventricles and cisterns displace normal appearance. No intra or extra axial fluid co llections were seen. The calvarium is intact with no evidence for fracture. The visualized portions o f the paranasal sinuses and orbits demonstrate to be clear. CT C-spine: The alignment, vertebral body heights, and disc spaces are normal. There is no evidence of fracture or subluxation. There is minimal degenerative disc disease with decreased intervertebral disc height, anterior spondylosis and posterior osteophyte complex at C3/C4, C4/C5 C5/C6. There is s brandi canal narrowing C3/C4 C4/C5 C5/C6. There are uncovertebral degenerative changes at C2-T1. There is no prevertebral soft tissue swelling. Sagittal coronal reformatted images demonstrate no sublux ation or bony abnormalities. IMPRESSION: No acute intracranial hemorrhage or mass effect. Mild brain atrophy with minimal periventricular white matter changes of microvascular ischemia. No evidence for fracture or subluxation of the cervical spine. Multilevel degenerative disc disease with spinal canal narrowing as described above. Electronically signed by: Dawit Kang MD 06/04/2022 2:45 AM CDT Due to temporary technical issues with the PACS/Fluency reporting system, reports are being signed by the in house radiologists without review as a courtesy to insure prompt reporting. The interpreting radiologist is fully responsible for the content of the report.
== END 2022-06-04 04:37 | disposition home or self-care (01) ==
LOC: ER 01:36
DX: S01.01XA Laceration without foreign body of scalp, initial encounter (principal); W06.XXXA Fall from bed, initial encounter; E11.9 Type 2 diabetes mellitus without complications; I10 Essential (primary) hypertension; G20 Parkinson's disease
CPT/HCPCS: 70450; 72125

== ENCOUNTER 2023-03-03 10:27 | Observation (INO) | payer OTHER ==
--- OUTSIDE RECORDS SUMMARY | 2023-03-03 10:37 | XMS REPORT | Continuity of Care Document ---
:1950 Author Organization [facility] t Address [address] [place] [address] [place] [id number] Care Team Providers Name Role Phone Pcp, Patient Does Not Have A Primary Care Physician [id number] NICOLAS MOHAN Attending Clinician Unavailable Therapy, Adc Covid Infusion Attending Clinician Unavailable Nicolas Mohan MD Attending Clinician Doctor Unassigned, [place] Attending Clinician Unavailable Payers Payer Name Policy Type Policy Number Effective Date Expiration Date S ource MEDICARE PART A [id number] 2014 \T\ B 00:00:00 Problems This patient has no known problems. Allergies, Adverse Reactions, Alerts Allergy Allergy Status Severity Reaction(s) Onset Inactive Treating Comm ents Source Name Type Date Date Clinician NO KNOWN Drug Active Univers ALLERGIE Class ity of S [facility] Social History Social Habit Start Date Stop Date Quantity Comments Source Sex Assigned At [birth year] [facility] 00:00:00 00:00:00 [facility] Branch Smoking Status Start Date Stop Date Source Unknown if ever smoked [facility] Medications Ordered Filled Start Stop Current Ordering Indication Dosage Frequency Signature Comments Components Source Medication Medication Date Date Medication? Clinician (SIG) Name Name casirivimab 2020- No [id number] 1200mg 1,200 mg, Univers -imdevimab 06-27 Subcutaneo it y of (REGEN-COV 21:15: 19:59 us, ONCE, [place] (EUA)) 00 :00 1 dose, On Medical injection [facility] 1,200 mg 06/27/21 at 1615, Routine Vital Signs Vital Name Observation Time Observation Value Comments Source Systolic blood 2021-06-27 20:46:00 149 mm[Hg] Univer sity of pressure [facility] Diastolic blood 2021-06-27 20:46:00 78 mm[Hg] Unive rsity [facility] Heart rate 2021-06-27 20:46:00 81 /min [facility] Body temperature 2021-06-27 20:46:00 36 [facility] Respiratory rate 2021-06-27 20:46:00 18 /min [facility] Oxygen saturation in 2021-06-27 20:46:00 95 /min [facility] Arterial blood by [facility] Pulse oximetry [place] Body height 2021-06-27 19:56:00 160 cm [facility] Body weight 2021-06-27 19:56:00 87.544 kg [facility] BMI 2021-06-27 19:56:00 34.19 kg/m2 [facility] Procedures Procedure Date / Time Performed Performing Clinician [facility] e CONSENT/REFUSAL FOR 2021-06-27 05:01:00 Doctor Unassigned, No Un [facility] DIAGNOSIS AND Name [facility] TREATMENT Encounters Start End Encounter Admission Attending Care Care Encounter Source Date/Time Date/Time Type Type Clinicians Facility Department ID 2021-06-27 2021-06-27 Outpatient R [facility] [id number] Univers 15:30:00 15:30:00 NICOLAS barroso [facility] 2021-06-27 2021-06-27 Nurse Therapy, [facility] Covid Infusion [facility] [id number] Univers 13:22:04 14:22:04 Visit Nicolas Mohan [id number] chio [facility] [id number] Simran s Surgical [phone] [facility] Center 0[address] Branch 2021-06-27 2021-06-27 Orders Doctor LENNON [id number] Univers 00:00:00 00:00:00 Only Unassigned, CONNER [id number] ity of [place] [facility] [id number] Angel Luis as [phone] [facility] 009 Branch Results This patient has no known results.
[2023-03-03] MEDS ORDERED: ONDANSETRON 4 MG/2 ML VIAL ONE (11:10)
[2023-03-03] MEDS ORDERED: MORPHINE 4 MG/ML SYR ONE (11:10)
[2023-03-03 11:17] LABS: Absolute Lymphocytes (CBC) 1.7 K/uL (0.7-4.9); Hematocrit 41.1 % (39.6-49.0); Lymphocytes % 28.1 % (15.3-44.8); MCV 93.8 fL (80-100); MPV 9.2 fL (7.6-11.3); RBC Red Blood Cell Count 4.38 M/uL (4.33-5.43)
[2023-03-03 11:34] LABS: AST/SGOT 22 U/L (15-37); Albumin 2.9 g/dL (3.4-5.0); Alkaline Phosphatase 121 U/L (45-117); BUN Blood Urea Nitrogen 22 mg/dL (7-18); Bicarbonate 29 mEq/L (21-32); Bilirubin Total 0.3 mg/dL (0.2-1.0); Glomerular Filtration Rate 99 ml/min (=/>90); Glucose Level 154 mg/dL (74-106); Lipase 31 U/L (13-75); Protein, Total 6.5 g/dL (6.4-8.2); Sodium Level 136 mEq/L (136-145)
[2023-03-03 11:50] LABS: ALT/SGPT < 10 U/L (16-61)
--- NOTE | 2023-03-03 11:52 | RAD REPORT ---
EXAM DESCRIPTION: US - Abdomen Exam Limited - 03/03/2023 11:18 am CLINICAL HISTORY: ABD PAIN COMPARISON: UPPER GI SERIES W O K dated 10/19/2013 TECHNIQUE: Sonographic grayscale and color flow images of the right upper abdominal quadrant were obtained. FINDINGS: The gallbladder was surgically removed. Over shadowing bowel in the gallbladder fossa limi ts evaluation, without discrete evidence of an abnormal collection. The common bile duct was not visualized. The liver demonstrates no findings of intrahepatic biliary dilatation. Within the visualized aspects of the right kidney, an incidentally noted 2 centimeter anechoic cyst i s seen. IMPRESSION: Status post cholecystectomy. No abnormalities in the gallbladder fossa within limits of over shadowing bowel. Exam limited by nonvisualization of the common bile duct. Incidentally noted right renal cyst.
--- NOTE | 2023-03-03 12:28 | RAD REPORT ---
EXAM DESCRIPTION: CT - Abdomen Pelvis W Contrast - 03/03/2023 12:10 pm CLINICAL HISTORY: ABD PAIN COMPARISON: No comparisons TECHNIQUE: Thin cut axial CT imaging of the abdomen and pelvis was performed following intravenous a dministration of 75 mL Isovue 300. Multiplanar reformats were generated and reviewed. All CT scans are performed using dose optimization technique as appropriate and may include automated exposure control or mA/KV adjustment according to patient size. FINDINGS: No suspicious findings in the lung bases. Elevation of the right hemidiaphragm. The liver, spleen, and pancreas show no suspicious findings. Gallbladder and biliary tree are also wi thout suspicious finding. Symmetric renal function is seen with no hydronephrosis or suspicious renal mass. Incidentally noted fluid density right superior pole 2.1 centimeter lesion, suggestive of a cyst. No dilated bowel loops or bowel wall thickening. No free air, free fluid or inflammatory stranding. N o hernia, mass or bulky lymphadenopathy. The urinary bladder is without significant finding. No suspicious bony findings. IMPRESSION: No acute intra-abdominal process. Incidental findings as above.
[2023-03-03 13:08] LABS: Specific Gravity 1.022 (1.005-1.030); Urine Bilirubin NEGATIVE (Negative); Urine Blood Negative (Negative); Urine Clarity Clear (Clear); Urine Color Yellow (Yellow); Urine Glucose 3+ (Negative); Urine Protein NEGATIVE (Negative); Urine Urobilinogen 1+ (Normal)
--- NOTE | 2023-03-03 13:56 | EDPHYS ---
Physician Documentation [facility] Name: Geraldo Solis Age: 72 yrs Sex: Male : 1950 Arrival Date: 03/03/2023 Time: 10:27 Bed 6 Private MD: ED Physician Joao Ambrose HPI: 03/03 11:18 This 72 yrs old Male presents to ER via EMS with complaints of Abdominal Pain. rn 11:18 The patient presents with abdominal pain in the right upper quadrant. Onset: The rn symptoms/episode began/occurred 4 day(s) ago. The symptoms radiate to the right flank. Associated signs and symptoms: Pertinent negatives: nausea and vomiting, blood in stools, chest pain, fever. The symptoms are described as crampy, intermittent. Modifying factors: The symptoms are alleviated by nothing, the symptoms are aggravated by touching the area. Severity of pain: At its worst the pain was moderate in the emergency department the pain has improved. The patient has not experienced similar symptoms in the past. The patient has not recently seen a physician. Historical: - Allergies: 10:39 No Known Allergies; ll1 - PMHx: 10:39 Diabetes - NIDDM; Hypertension; Parkinsons; Schizophrenia; Dementia; constipation; ll1 Bipolar disorder; - Immunization history:: Adult Immunizations up to date. - Social history:: Smoking status: Patient denies any tobacco usage or history of. - Family history:: not pertinent. - Hospitalizations: : No recent hospitalization is reported. ROS: 11:18 Constitutional: Negative for fever, chills, and weight loss, Cardiovascular: Negative rn for chest pain, palpitations, and edema, Respiratory: Negative for shortness of breath, cough, wheezing, and pleuritic chest pain, Abdomen/GI: + right sided abd pain, no vomiting/diarrhea/blood in stool Back: + right flank pain : Negative for injury, bleeding, discharge, and swelling, MS/Extremity: Negative for injury and deformity, Skin: Negative for injury, rash, and discoloration, Neuro: Negative for headache, weakness, numbness, tingling, and seizure. Exam: 11:18 Constitutional: This is a well developed, well nourished patient who is awake, alert, rn and in no acute distress. Head/Face: Normocephalic, atraumatic. Cardiovascular: Regular rate and rhythm. No pulse deficits. Respiratory: No increased work of breathing, no retractions or nasal flaring. Abdomen/GI: soft, + tender RUQ/epigastric region/LUQ, mild distension, bruises from insulin shots bilateral lower abd Skin: Warm, dry MS/ Extremity: Pulses equal, no cyanosis. Neuro: Awake and alert, GCS 15 Vital Signs: 10:43 BP 155 / 93; Pulse 77; Resp 16; Temp 98; Pulse Ox 97% ; Weight 92.08 kg; Height 5 ft. 3 ll1 in. ; Pain 10/10; 11:15 BP 156 / 82; Pulse 75; Resp 18; Pulse Ox 100% on R/A; Pain 10/10; ll1 15:51 BP 134 / 60; Pulse 74; Resp 16; Pulse Ox 98% on R/A; ll1 19:44 BP 156 / 88; Pulse 86; Resp 18; Temp 98.2(O); Pulse Ox 98% ; rv 10:43 Body Mass Index 35.96 (92.08 kg, 160.02 cm) ll1 10:43 Pain Scale: Adult ll1 11:15 Pain Scale: Adult ll1 MDM: 10:45 Patient medically screened. rn 13:50 Differential diagnosis: appendicitis, bowel obstruction. rn 13:50 Differential diagnosis: cholecystitis, Cholelithiasis, gastritis, gastroesophageal rn reflux disease, non-specific abd pain, pancreatitis, Peptic Ulcer Disease, Perf. Duodenal Ulcer, Perf. Gastric Ulcer, urinary tract infection. Data reviewed: vital signs, nurses notes. 13:50 Management of patient was discussed with the following: Hospitalist: . Counseling: I rn had a detailed discussion with the patient and/or guardian regarding: the historical points, exam findings, and any diagnostic results supporting the discharge/admit diagnosis, lab results, radiology results, the need for further work-up and treatment in the hospital. 13:53 Response to treatment: the patient's symptoms have mildly improved after treatment, and rn as a result, I will admit patient. Special discussion:. ED course: Pt improves with pain meds, then pain returns, no acute findings in blood/urine/ct abdomen/ultrasound. Spoke with family regarding discharge and return precautions, they do not want to be discharged, are uncomfortable with proposed discharge, had long discussion regarding what we have ruled out, and they request to be admitted. Observed to hospitalist service. . 03/03 10:51 Order name: CBC with Diff; Complete Time: 12:49 rn 03/03 10:51 Order name: CMP; Complete Time: 12:49 rn 03/03 10:51 Order name: Lipase; Complete Time: 12:49 rn 03/03 10:51 Order name: Urinalysis w/ reflexes; Complete Time: 13:17 rn 03/03 16:38 Order name: CBC with Automated Diff EDMS 03/03 16:38 Order name: CBC with Automated Diff EDMS 03/03 16:38 Order name: Comprehensive Metabolic Panel EDMS 03/03 16:38 Order name: Comprehensive Metabolic Panel EDMS 03/03 16:38 Order name: Protime (+INR) EDMS 03/03 16:38 Order name: Protime (+INR) EDMS 03/03 16:38 Order name: PTT, Activated Partial Thromb EDMS 03/03 16:38 Order name: PTT, Activated Partial Thromb EDMS 03/03 10:51 Order name: Abdomen Limited US; Complete Time: 12:49 rn 03/03 10:51 Order name: CT Abd/Pelvis - IV Contrast Only; Complete Time: 12:49 rn 03/03 16:38 Order name: Heart Healthy EDMS 03/03 10:51 Order name: IV Saline Lock; Complete Time: 10:52 rn 03/03 10:51 Order name: Labs collected and sent; Complete Time: 10:52 rn Administered Medications: 11:17 Drug: Ondansetron IVP 4 mg Route: IVP; Site: right forearm; ll1 12:59 Follow up: Response: No adverse reaction hb 11:17 Drug: morphine IVP or IV 4 mg {Note: RASS 0, pain 10/10.} Route: IVP; Infused Over: 4 ll1 mins; Site: right forearm; 12:59 Follow up: Response: No adverse reaction; Pain is unchanged, physician notified; RASS: hb Alert and Calm (0) 14:24 Drug: Famotidine IVP 20 mg Route: IVP; Site: right forearm; ll1 15:25 Follow up: Response: No adverse reaction ll1 18:27 Follow up: Response: No adverse reaction ll1 Disposition Summary: 03/03/23 13:56 Hospitalization Ordered Hospitalization Status: Observation rn Provider: Juan Alberto Medley rn Location: Telemetry/MedSurg (observation) rn Condition: Stable rn Problem: new rn Symptoms: are unchanged rn Bed/Room Type: Standard rn Room Assignment: [facility](03/03/23 20:27) cg Diagnosis - Abdominal pain, unspecified rn Forms: - Medication Reconciliation Form rn - SBAR form rn Signatures: Dispatcher [employer] EDJoao Monk MD MD rn Garcia, Cindy, RN RN cg Lewis, Lynsay, RN RN [facility] Joslyn Branch RN Corrections: (The following items were deleted from the chart) 20: 13:56 rn cg 20: 20:25 218 cg cg
--- NOTE | 2023-03-03 13:56 | ER ---
Nurse's Notes [facility] Name: Geraldo Solis Age: 72 yrs Sex: Male : 1950 Arrival Date: 03/03/2023 Time: 10:27 Bed 6 Private MD: Diagnosis: Abdominal pain, unspecified Presentation: 03/03 10:43 Chief complaint: Patient states: RUQ abd pain that radiates into back for 4 days. No ll1 fever. Coronavirus screen: Client denies travel out of the [place] in the last 14 days. At this time, the client does not indicate any symptoms associated with coronavirus-19. Ebola Screen: Patient denies travel to an Ebola-affected area in the 21 days before illness onset. Initial Sepsis Screen: Does the patient meet any 2 criteria? No. Patient's initial sepsis screen is negative. Does the patient have a suspected source of infection? Yes: Acute abdominal pain. Risk Assessment: Do you want to hurt yourself or someone else? Patient reports no desire to harm self or others. Onset of symptoms was February 28, 2023. 10:43 Method Of Arrival: EMS ll1 10:43 Acuity: MARKO 3 ll1 Triage Assessment: 10:44 General: Appears uncomfortable, Behavior is calm, cooperative, appropriate for age. ll1 Pain: Complains of pain in RUQ Quality of pain is described as aching, sharp. GI: Abdomen is round Bowel sounds present X 4 quads. Reports upper abdominal pain, bloating. Historical: - Allergies: 10:39 No Known Allergies; ll1 - PMHx: 10:39 Diabetes - NIDDM; Hypertension; Parkinsons; Schizophrenia; Dementia; constipation; ll1 Bipolar disorder; - Immunization history:: Adult Immunizations up to date. - Social history:: Smoking status: Patient denies any tobacco usage or history of. - Family history:: not pertinent. - Hospitalizations: : No recent hospitalization is reported. Screenin:18 [facility] ED Fall Risk Assessment (Adult) Score/Fall Risk Level 0 - 2 = Low Risk ll1 Oriented to surroundings, Maintained a safe environment, Educated pt \T\ family on fall prevention, incl call for assistance when getting out of bed, Hourly rounding (assess needs \T\ fall precautionary measures) done. Abuse screen: Denies threats or abuse. Nutritional screening: No deficits noted. Tuberculosis screening: No symptoms or risk factors identified. Assessment: 10:59 Reassessment: No changes from previously documented assessment. Patient and/or family hb updated on plan of care and expected duration. Pain level reassessed. Patient is alert, oriented x 3, equal unlabored respirations, skin warm/dry/pink. To CT. 11:18 Reassessment: No changes from previously documented assessment. Patient and/or family ll1 updated on plan of care and expected duration. Pain level reassessed. Patient is alert, oriented x 3, equal unlabored respirations, skin warm/dry/pink. 12:59 Reassessment: No changes from previously documented assessment. Patient and/or family hb updated on plan of care and expected duration. Pain level reassessed. Patient is alert, oriented x 3, equal unlabored respirations, skin warm/dry/pink. 14:24 Reassessment: No changes from previously documented assessment. Admission MD at . ll1 21:01 GI: Abdomen is tender to palpation in right upper quadrant. rv Vital Signs: 10:43 BP 155 / 93; Pulse 77; Resp 16; Temp 98; Pulse Ox 97% ; Weight 92.08 kg; Height 5 ft. 3 ll1 in. ; Pain 10/10; 11:15 BP 156 / 82; Pulse 75; Resp 18; Pulse Ox 100% on R/A; Pain 10/10; ll1 15:51 BP 134 / 60; Pulse 74; Resp 16; Pulse Ox 98% on R/A; ll1 19:44 BP 156 / 88; Pulse 86; Resp 18; Temp 98.2(O); Pulse Ox 98% ; rv 10:43 Body Mass Index 35.96 (92.08 kg, 160.02 cm) ll1 10:43 Pain Scale: Adult ll1 11:15 Pain Scale: Adult ll1 ED Course: 10:39 Patient arrived in ED. ll1 10:39 Arm band placed on Patient placed in an exam room, on a stretcher. ll1 10:44 Triage completed. ll1 10:45 Veronica Blanchard, YEYO is Primary Nurse. ll1 10:45 Joao Ambrose MD is Attending Physician. rn 10:59 Inserted saline lock: 22 gauge in right forearm, using aseptic technique. Blood hb collected. 11:18 Patient has correct armband on for positive identification. Bed in low position. Call ll1 light in reach. Side rails up X 1. Client placed on continuous cardiac and pulse oximetry monitoring. NIBP monitoring applied. 11:18 No provider procedures requiring assistance completed. ll1 11:19 Abdomen Limited US In Process Unspecified. EDMS 12:12 CT Abd/Pelvis - IV Contrast Only In Process Unspecified. EDMS 12:59 Urinalysis w/ reflexes Sent. hb 13:56 Juan Alberto Medley is Hospitalizing Provider. rn 19:08 Primary Nurse role handed off by Veronica Blanchard, YEYO jl7 19:44 Dave Bowers, YEYO is Primary Nurse. rv 21:01 Patient admitted, IV remains in place. rv Administered Medications: 11:17 Drug: Ondansetron IVP 4 mg Route: IVP; Site: right forearm; ll1 12:59 Follow up: Response: No adverse reaction hb 11:17 Drug: morphine IVP or IV 4 mg {Note: RASS 0, pain 10/10.} Route: IVP; Infused Over: 4 ll1 mins; Site: right forearm; 12:59 Follow up: Response: No adverse reaction; Pain is unchanged, physician notified; RASS: hb Alert and Calm (0) 14:24 Drug: Famotidine IVP 20 mg Route: IVP; Site: right forearm; ll1 15:25 Follow up: Response: No adverse reaction ll1 18:27 Follow up: Response: No adverse reaction ll1 Medication: 11:18 VIS not applicable for this client. ll1 Outcome: 13:56 Decision to Hospitalize by Provider. rn 21:01 Admitted to Med/surg accompanied by nurse, via stretcher, room 212, on monitor, with rv chart, Report called to Hardy ORONA 21:01 Condition: good 21:01 Instructed on the need for admit. 21:02 Patient left the ED. rv Signatures: Dispatcher [employer] EDMS Joao Ambrose MD MD rn Baxter, Heather, RN RN Linh Salas RN RN [id number] Dave Bowers, YEYO ORONA rv Veronica Blanchard RN RN ll1
[2023-03-03] MEDS ORDERED: FAMOTIDINE 20 MG/2 ML VIAL IV ONE (14:15)
[2023-03-03] MEDS ORDERED: ACETAMINOPHEN 500 MG TAB PO PRN (16:22)
[2023-03-03] MEDS ORDERED: ONDANSETRON 4 MG/2 ML VIAL IV PRN (16:22)
[2023-03-03] MEDS: MORPHINE 2 MG/ML SYR IV PRN ×2 (18:28→22:40)
[2023-03-03] MEDS: NA CHLORIDE 0.9% 1,000 ML IV SCH ×2 (18:28→21:34)
[2023-03-03] MEDS ORDERED: NA CHLORIDE 0.9% 1,000 ML ONE (18:29)
[2023-03-03] MEDS ORDERED: MORPHINE 2 MG/ML SYR ONE (18:29)
[2023-03-03 18:33] VITALS: BMI 35.9
[2023-03-03 21:43] VITALS: O2SAT 98
[2023-03-04] MEDS: MORPHINE 2 MG/ML SYR IV PRN ×3 (02:54→12:30)
[2023-03-04 04:03] LABS: Absolute Lymphocytes (CBC) 1.2 K/uL (0.7-4.9); Hematocrit 38.8 % (39.6-49.0); Lymphocytes % 18.8 % (15.3-44.8); MCV 93.9 fL (80-100); MPV 8.9 fL (7.6-11.3); RBC Red Blood Cell Count 4.14 M/uL (4.33-5.43)
[2023-03-04 04:34] LABS: Albumin 2.9 g/dL (3.4-5.0); Bilirubin Total 0.2 mg/dL (0.2-1.0); Protein, Total 6.1 g/dL (6.4-8.2)
[2023-03-04 04:50] LABS: Potassium 4.6 mEq/L (3.5-5.1)
[2023-03-04 05:05] LABS: Protime INR 0.92
[2023-03-04] MEDS: NA CHLORIDE 0.9% 1,000 ML IV SCH ×2 (06:23→13:00)
[2023-03-04] MEDS ORDERED: PANTOPRAZOLE 40MG TABLET PO ONE (07:43)
[2023-03-04] MEDS ORDERED: METHYLPREDNISOLONE 40 MG INJ IV ONE (07:43)
[2023-03-04] MEDS ORDERED: POLYETHYL GLY 3350 17 GM/DOSE PO PRN (07:45)
[2023-03-04] MEDS ORDERED: POLYETHYL GLY 3350 17 GM/DOSE PO ONE (07:45)
--- NOTE | 2023-03-04 09:09 | P.HP ---
Certification for Inpatient Patient admitted to: Observation With expected LOS: <2 Midnights Patient will require the following post-hospital care: Usp Practitioner: I am a practitioner with admitting privileges, knowledge of patient current condition, hospital course, and medical plan of care. Services: Services provided to patient in accordance with Admission requirements found in Title 42 Section 412.3 of the Code of Federal Regulations Patient History Date of Service: 03/03/23 Reason for admission: Abdominal pain History of Present Illness: Is a 72-year-old gentleman who came to the hospital with abdominal pain. Patient with chronic abdominal pain and this been going on for over a month. Patient has been worked up as an outpatient as he lives at [facility]. Work-up has been negative. I spoke to the family and let them know that we do not have gastroenterology available to do any further testing at this point. They want patient observed overnight. Patient will be admitted to the hospital for observation status. Allergies No Known Allergies Allergy (Verified 03/04/23 01:13) Home Medications: Carbidopa/Levodopa 25-100 [Sinemet 25-100*] 2 tab PO Q6H 03/04/19 Memantine HCl [Namenda] 1 tab PO BID 03/04/19 Rivastigmine Tartrate [Rivastigmine] 1 tab PO BID 03/04/19 Duloxetine HCl [Cymbalta] 2 cap PO BEDTIME 12/27/20 Insulin Aspart [Novolog Penfill] 0 unit SQ SEECOM 12/27/20 Acetaminophen [Tylenol] 2 tab PO Q4H PRN 03/04/23 Aspirin 81 mg PO DAILY 03/04/23 Buspirone HCl [Buspar] 2 tab PO TID 03/04/23 Clopidogrel Bisulfate [Plavix] 75 mg PO DAILY 03/04/23 Divalproex Sodium 2 tab PO BID 03/04/23 Dulaglutide [Trulicity] 0.5 ml SQ SEECOM 03/04/23 Ergocalciferol (Vitamin D2) [Vitamin D2] 1,250 mcg PO SEECOM 03/04/23 Gabapentin 100 mg PO TID 03/04/23 Guaifenesin [Cough Syrup] 15 ml PO Q4HP PRN 03/04/23 Insulin Glargine,Hum.rec.anlog [Basaglar Kwikpen U-100] 70 unit SQ DAILY 03/04/23 Lactulose 10 gm PO DAILY 03/04/23 Pramipexole Di-HCl [Mirapex] 0.25 mg PO TID 03/04/23 Quetiapine Fumarate [Seroquel] 25 mg PO DAILY 03/04/23 Quetiapine Fumarate [Seroquel] 50 mg PO BEDTIME 03/04/23 Tadalafil [Cialis] 5 mg PO SEECOM PRN 03/04/23 - Past Medical/Surgical History Has patient received pneumonia vaccine in the past: Yes Diabetic: Yes -: Diabetes mellitus type 2 -: Hypertension -: Parkinson's -: Bipolar disorder -: Dementia -: Arm surgery -: Left knee replacement Psychosocial/ Personal History: Patient is . Lives at home. Patient has home care provider. - Family History Mother Medical History: Other (see notes) - Social History Smoking Status: Never smoker Alcohol use: No CD- Drugs: No Review of Systems 10-point ROS is otherwise unremarkable Physical Examination - Vital Signs Temperature: 97.0 F Blood Pressure: 176/72 Pulse: 83 Respirations: 18 Pulse Ox (%): 98 - Physical Exam General: Alert, In no apparent distress, Oriented x2, Cooperative, Demented HEENT: Atraumatic, PERRLA, Mucous membr. moist/pink, EOMI, Sclerae nonicteric Neck: Supple, 2+ carotid pulse no bruit, No LAD, Without JVD or thyroid abnormality Respiratory: Clear to auscultation bilaterally, Normal air movement Cardiovascular: Regular rate/rhythm, Normal S1 S2 Gastrointestinal: Normal bowel sounds, Soft and benign, Non-distended, No tenderness Musculoskeletal: No clubbing, No swelling, No tenderness Integumentary: No rashes Neurological: Normal speech, Normal tone, Sensation intact, Cranial nerves 3-12 intact, Normal affect, Abnormal gait, Abnormal strength Lymphatics: No axilla or inguinal lymphadenopathy - Studies Laboratory Data (last 24 hrs) 03/03/23 10:55: Sodium 136, Potassium 4.0, BUN 22 H, Creatinine 0.70, Glucose 154 H, Total Bilirubin 0.3, AST 22, ALT < 10 L, Alkaline Phosphatase 121 H, Lipase 31 03/03/23 10:55: WBC 6.00, Hgb 14.0, Hct 41.1, Plt Count 144 L Assessment & Plan - Problems (Diagnosis) (1) Abdominal pain Current Visit: Yes Status: Acute (2) Parkinson disease Current Visit: Yes Status: Acute (3) Diabetes Current Visit: Yes Status: Acute Qualifiers: Diabetes mellitus type: type 2 (4) HTN (hypertension) Current Visit: Yes Status: Acute Qualifiers: Hypertension type: primary hypertension Qualified Code(s): I10 - Essential (primary) hypertension (5) Bipolar affect, depressed Current Visit: Yes Status: Acute Qualifiers: Qualified Code(s): F31.31 - Bipolar disorder, current episode depressed, mild - Plan Plan: 1. Repeat labs 2. IV hydration 3. Anti-inflammatories 4. PPI 5. Continue with strict blood pressure and blood sugar control 6. GI and DVT prophylaxis - Advance Directives Does patient have a Living Will: No Does patient have a Durable POA for Healthcare: No - Code Status/Comfort Care Code Status Assessed: Yes Code Status: Full Code Critical Care: No Time Spent Managing PTS Care (In Minutes): 45
[2023-03-04] MEDS ORDERED: cloNIDine HCL 0.1 MG TAB PO STA (11:51)
[2023-03-04] MEDS ORDERED: DIVALPROEX DR 500MG TAB PO SCH (12:00)
[2023-03-04] MEDS ORDERED: CARBIDOPA/LEVODOPA 25/100 TAB PO SCH (12:00)
[2023-03-04] MEDS ORDERED: HYDRALAZINE HCL 20 MG/ML VIAL IV ONE (12:55)
[2023-03-04 13:00] VITALS: BP 176/72; TEMP 97
[2023-03-04] MEDS ORDERED: GABAPENTIN 100 MG CAP PO SCH (14:00)
[2023-03-04] MEDS ORDERED: BUSPIRONE HCL 5 MG TABLET PO SCH (14:00)
[2023-03-04] MEDS ORDERED: MEMANTINE HCL 10 MG TABLET PO SCH (21:00)
[2023-03-04] MEDS ORDERED: DULOXETINE 30 MG CAP PO SCH (21:00)
[2023-03-04] MEDS ORDERED: RIVASTIGMINE TARTRATE 1.5 MG PO SCH (21:00)
[2023-03-04] MEDS ORDERED: RIVASTIGMINE TARTRATE 6 MG PO SCH (21:00)
[2023-03-04] MEDS ORDERED: HOME MED 1 EA UNK (Duloxetine Hcl [Cymbalta] 60 MG Capsule.Dr) PO SCH (21:00)
[2023-03-04] MEDS ORDERED: HOME MED 1 EA UNK (Quetiapine Fumarate [Seroquel] 50 MG Tablet) PO SCH (21:00)
[2023-03-04] MEDS ORDERED: QUETIAPINE 25 MG TAB PO SCH (21:00)
[2023-03-05] MEDS ORDERED: PANTOPRAZOLE 40MG TABLET PO SCH (06:30)
[2023-03-05] MEDS ORDERED: LACTULOSE 20 GM/30 ML UCUP PO SCH (09:00)
[2023-03-05] MEDS ORDERED: CLOPIDOGREL 75 MG TABLET PO SCH (09:00)
[2023-03-05] MEDS ORDERED: INSULIN GLARGINE 100 UNIT/ML SQ SCH (09:00)
[2023-03-05] MEDS ORDERED: QUETIAPINE 25 MG TAB PO SCH (09:00)
[2023-03-05] MEDS ORDERED: HOME MED 1 EA UNK (Insulin Glargine,Hum.Rec.Anlog [Basaglar Kwikpen U-100] 100 UNIT/ML Ins SQ SCH (09:00)
[2023-03-05] MEDS ORDERED: ASPIRIN 81 MG CHEWABLE TABLET PO SCH (09:00)
[2023-03-05] MEDS ORDERED: HOME MED 1 EA UNK (Lactulose [Lactulose] 10 GM/15 ML Solution) PO SCH (09:00)
[2023-03-10] MEDS ORDERED: DRISDOL (VITAMIN D=ERGOCALCIFEROL) 50000 UNIT CAP PO SCH (09:00)
== END 2023-03-04 15:09 | disposition home or self-care (01) ==
LOC: ER 10:27 → ERHOLD 16:17 → 2ND 20:59
PROVIDERS: ADMIT Hospitalist; ATTEND Hospitalist
DX: R10.9 Unspecified abdominal pain (principal); G20 Parkinson's disease; E11.9 Type 2 diabetes mellitus without complications; I10 Essential (primary) hypertension; F31.31 Bipolar disorder, current episode depressed, mild; F02.80 Dementia in other diseases classified elsewhere, unspecified severity, without behavioral disturbance, psychotic disturbance, mood disturbance, and anxiety
CPT/HCPCS: 85025 ×2; 36415; 85610; 82947 ×2; 85730; 81003; 83690; 80053 ×2; 74177; 76705; 96375; 96374; 99285; Q9967; J0360; J2270 ×5; J2405; J7030 ×3; J2920; G0378 ×4

== ENCOUNTER → 2023-12-26 | Emergency (ER) | payer OTHER ==
--- NOTE | 2023-12-26 16:32 | EDPHYS ---
Physician Documentation [facility] Name: Geraldo Solis Age: 73 yrs Sex: Male : 1950 Arrival Date: 12/26/2023 Time: 15:56 Bed IW1 Private MD: ED Physician Juliocesar Martinez HPI: 12/25 16:22 This 73 yrs old Male presents to ER via Ambulatory with complaints of Ear jh7 Bleeding. 16:22 Onset: The symptoms/episode began/occurred acutely. Associated signs and symptoms: The jh7 patient has no apparent associated signs or symptoms. 73-year-old male presents from [place] for bleeding from the right ear. He denies acute changes in hearing, fever, or pain. He reports that the nurse noticed that there was blood running down his face and advised him to get evaluated.. Historical: - Allergies: 16:25 No Known Allergies; ko1 - PMHx: 16:25 Bipolar disorder; constipation; Dementia; Diabetes - NIDDM; Hypertension; ko1 Schizophrenia; Parkinsons; - Immunization history:: Adult Immunizations up to date. - Social history:: Smoking status: Patient denies any tobacco usage or history of. ROS: 16:22 Constitutional: Negative for fever, chills, and weight loss, Eyes: Negative for injury, jh7 pain, redness, and discharge, Neck: Negative for injury, pain, and swelling, Cardiovascular: Negative for chest pain, palpitations, and edema, Respiratory: Negative for shortness of breath, cough, wheezing, and pleuritic chest pain, Abdomen/GI: Negative for abdominal pain, nausea, vomiting, diarrhea, and constipation, MS/Extremity: Negative for injury and deformity, Skin: Negative for injury, rash, and discoloration, Neuro: Negative for headache, weakness, numbness, tingling, and seizure, 16:22 ENT: Positive for drainage from ear(s), Negative for ear pain, 16:22 All other systems are negative, Exam: 16:22 Constitutional: This is a well developed, well nourished patient who is awake, alert, jh7 and in no acute distress. Head/Face: Normocephalic, atraumatic. Neck: Trachea midline, no thyromegaly or masses palpated, and no cervical lymphadenopathy. Supple, full range of motion without nuchal rigidity, or vertebral point tenderness. No Meningismus. Cardiovascular: Regular rate and rhythm with a normal S1 and S2. No gallops, murmurs, or rubs. Normal PMI, no JVD. No pulse deficits. Respiratory: Lungs have equal breath sounds bilaterally, clear to auscultation and percussion. No rales, rhonchi or wheezes noted. No increased work of breathing, no retractions or nasal flaring. Abdomen/GI: Soft, non-tender, with normal bowel sounds. No distension or tympany. No guarding or rebound. No evidence of tenderness throughout. Back: No spinal tenderness. No costovertebral tenderness. Full range of motion. Skin: Warm, dry with normal turgor. Normal color with no rashes, no lesions, and no evidence of cellulitis. MS/ Extremity: Pulses equal, no cyanosis. Neurovascular intact. Full, normal range of motion. Neuro: Awake and alert, GCS 15, oriented to person, place, time, and situation. Normal gait. 16:22 ENT: External ear(s): laceration, that is superficial, right ear canal, Ear canal(s): bloody discharge, that is minimal, in the right canal, TM's: are normal, Vital Signs: 16:22 BP 161 / 75; Pulse 78; Resp 18; Temp 97.1; Pulse Ox 96% on R/A; ko1 MDM: 16:26 Patient medically screened. [facility] 16:30 Differential diagnosis: TM rupture, laceration of the ear canal, abrasion. Data [facility] reviewed: vital signs, nurses notes. Historians other than the Patient: Spouse/Significant Other: . Care significantly affected by the following chronic conditions: Diabetes, Hypertension. Counseling: I had a detailed discussion with the patient and/or guardian regarding the historical points, exam findings, and any diagnostic results supporting the discharge/admit diagnosis, to return to the emergency department if symptoms worsen or persist or if there are any questions or concerns that arise at home. Special discussion: Will prescribe antibiotics prophylactically. Blood present in the ear canal and superficial laceration noted. TM intact.. Administered Medications: No medications were administered Disposition Summary: 12/26/23 16:32 Discharge Ordered Notes: Location: Home [facility] Problem: new [facility] Symptoms: have improved [facility] Condition: Stable [facility] Diagnosis - Laceration without foreign body of right ear [facility] Followup: [facility] - With: Private Physician - When: 2 - 3 days - Reason: Recheck today's complaints Discharge Instructions: - Discharge Summary Sheet [facility] - Nonsutured Laceration Care [facility] Forms: - Medication Reconciliation Form [facility] - Thank You Letter [facility] - Antibiotic Education [facility] - Patient Portal Instructions [facility] - Leadership Thank You Letter [facility] Prescriptions: - Cephalexin 500 mg Oral Capsule - take 1 capsule ORAL route every 12 hours for 10 days; 20 capsule; Refills: 0, jh7 Product Selection Permitted Signatures: Lani Drummond, INCOME TAX ADVISOR INCOME TAX ADVISOR [facility] Nubia Frederick, RN RN ko1
--- NOTE | 2023-12-26 16:32 | ER ---
Nurse's Notes [facility] Name: Geraldo Solis Age: 73 yrs Sex: Male : 1950 Arrival Date: 12/26/2023 Time: 15:56 Bed IW1 Private MD: Diagnosis: Laceration without foreign body of right ear Presentation: 12/25 16:22 Chief complaint: Patient states: sent from [place], right ear bleeding, started this ko1 morning. Coronavirus screen: At this time, the client does not indicate any symptoms associated with coronavirus-19. Ebola Screen: No symptoms or risks identified at this time. Initial Sepsis Screen: Does the patient meet any 2 criteria? No. Patient's initial sepsis screen is negative. Does the patient have a suspected source of infection? No. Patient's initial sepsis screen is negative. Risk Assessment: Do you want to hurt yourself or someone else? Patient reports no desire to harm self or others. Onset of symptoms was December 26, 2023. 16:22 Method Of Arrival: Ambulatory ko1 16:22 Acuity: MARKO 3 ko1 Triage Assessment: 16:25 General: Appears in no apparent distress. Behavior is calm, cooperative, appropriate ko1 for age. Pain: Denies pain. Historical: - Allergies: 16:25 No Known Allergies; ko1 - PMHx: 16:25 Bipolar disorder; constipation; Dementia; Diabetes - NIDDM; Hypertension; ko1 Schizophrenia; Parkinsons; - Immunization history:: Adult Immunizations up to date. - Social history:: Smoking status: Patient denies any tobacco usage or history of. Screenin:30 [facility] ED Fall Risk Assessment (Adult) History of falling in the last 3 months, ko1 including since admission No falls in past 3 months (0 pts) Confusion or Disorientation No (0 pts) Intoxicated or Sedated No (0 pts) Impaired Gait Yes (1 pt) Mobility Assist Device Used Yes (1 pt) Altered Elimination No (0 pt) Score/Fall Risk Level 0 - 2 = Low Risk Oriented to surroundings, Maintained a safe environment, Educated pt \T\ family on fall prevention, incl call for assistance when getting out of bed, Assessed \T\ reinforced patient's understanding of fall precautions, Provided non-skid footwear, Hourly rounding (assess needs \T\ fall precautionary measures) done, Used ambulatory aids as needed (educated on \T\ assisted with), Used gait belt as appropriate. Abuse screen: Denies threats or abuse. Denies injuries from another. Nutritional screening: No deficits noted. Tuberculosis screening: No symptoms or risk factors identified. Assessment: 16:30 EENT: Ear canal w/ bleeding noted from right ear. ko1 Vital Signs: 16:22 BP 161 / 75; Pulse 78; Resp 18; Temp 97.1; Pulse Ox 96% on R/A; ko1 ED Course: 15:59 Patient arrived in ED. rg4 16:25 Triage completed. ko1 16:25 Arm band placed on right wrist. Patient placed in an exam room, on a stretcher, on ko1 pulse oximetry, Patient notified of wait time. 16:26 Lani Drummond FNP is PHCP. [facility] 16:26 Juliocesar Martinez MD is Attending Physician. 7 16:30 Patient has correct armband on for positive identification. Provided Education on: na. ko1 16:30 No provider procedures requiring assistance completed. Patient did not have IV access ko1 during this emergency room visit. 16:45 Nubia Frederick, RN is Primary Nurse. ko1 Administered Medications: No medications were administered Medication: 16:30 VIS not applicable for this client. ko1 Outcome: 16:32 Discharge ordered by . [facility] 16:47 Discharged to home ambulatory, with family, ko1 16:47 Condition: stable 16:47 Discharge instructions given to patient, family, Instructed on discharge instructions, follow up and referral plans. medication usage, wound care, Demonstrated understanding of instructions, follow-up care, medications, wound care, Prescriptions given X 1, 16:47 Patient left the ED. ko1 Signatures: Ghada Lamar 4 Lani Drummond FNP ROLL UP OPERATOR [facility] Nubia Frederick, RN RN ko1
[2023-12-26 17:07] VITALS: BP 161/75; TEMP 97.1; O2SAT 96
== END ==
LOC: ER 15:56
DX: S01.311A Laceration without foreign body of right ear, initial encounter (principal)
CPT/HCPCS: 99283

== ENCOUNTER 2024-12-17 18:03 | Inpatient (IN) | payer OTHER ==
[2024-12-17 18:48] LABS: Absolute Eosinophils 0.1 K/uL (0-0.5); Absolute Lymphocytes (CBC) 1.8 K/uL (0.7-4.9); Absolute Monocytes 0.6 K/uL (0.1-1.3); Absolute Neutrophil 2.6 K/uL (1.8-8.0); Basophils % 0.5 % (0-1.3); Eosinophils % 1.2 % (0-4.4); Hematocrit 33.6 % (39.6-49.0); Hemoglobin 11.7 g/dL (13.6-17.9); Lymphocytes % 35.5 % (15.3-44.8); MCH 33.1 pg (27.0-35.0); MCHC 34.8 g/dL (32.0-36.0); MPV 8.5 fL (7.6-11.3); Monocytes % 12.5 % (3.3-12.3); Neutrophils % 50.3 % (41.7-73.7); Nucleated Red Blood Cells % 0.1 % (0-0); Platelets 130 thou/uL (152-406); RBC Red Blood Cell Count 3.54 M/uL (4.33-5.43)
[2024-12-17 18:51] LABS: PT Prothrombin Time 11.2 SECONDS (10-13.0); Protime INR 0.98
--- NOTE | 2024-12-17 18:51 | RAD REPORT ---
EXAMINATION: ONE VIEW CHEST XR CLINICAL INDICATION: hypotension TECHNIQUE: Frontal chest projection is submitted. Examination is limited by patient positioning and t echnique. COMPARISON: 12/27/2020 FINDINGS: The lungs are well inflated and clear. The heart is normal in size. No displaced fractures identified . Mild chronic right hemidiaphragm elevation. IMPRESSION: No acute intrathoracic abnormalities.
[2024-12-17 18:52] LABS: PTT, Activated Partial Thromb 36.5 SECONDS (27.2-37.4)
[2024-12-17 19:00] LABS: AST/SGOT 17 U/L (15-37); Albumin 2.7 g/dL (3.4-5.0); Albumin/Globulin Ratio 0.7 (1.1-1.8); Alkaline Phosphatase 98 U/L (45-117); Anion Gap 9.6 mEq/L (5.0-15.0); BUN Blood Urea Nitrogen 25 mg/dL (7-18); Bicarbonate 27 mEq/L (21-32); Bilirubin Total 0.4 mg/dL (0.2-1.0); Globulin 3.8 g/dL (2.3-3.5); Glomerular Filtration Rate 85 ml/min (=/>90); Glucose Level 115 mg/dL (74-106); Potassium 3.6 mEq/L (3.5-5.1); Protein, Total 6.5 g/dL (6.4-8.2); Sodium Level 137 mEq/L (136-145); Troponin High Sensitivity 7.1 pg/mL (<58.9)
[2024-12-17 19:02] LABS: ALT/SGPT < 14 U/L (16-61); Bilirubin Direct < 0.2 mg/dL (0-0.2); Bilirubin Indirect, Calculated 0.2 mg/dL (0.2-0.8)
--- NOTE | 2024-12-17 19:02 | RAD REPORT ---
EXAM: CT brain without contrast HISTORY: STROKE ALERT COMPARISON: None TECHNIQUE: Multiple contiguous axial images were obtained and a CT of the brain without contrast. Sag ittal and coronal reformats were performed. One or more of the following dose reduction techniques were used: Automated exposure control, adjust ment of the mA and/or kV according to patient size, and/or iterative reconstruction. FINDINGS: No evidence of hydrocephalus, intracranial hemorrhage, or extra-axial fluid collection. Mild brain atrophy with mild periventricular and deep white matter chronic microvascular ischemic ch anges present. No evidence of midline shift or areas of brain edema. The calvarium is intact. The visualized paranasal sinuses and mastoid air cells are essentially clear . IMPRESSION: No evidence of acute intracranial abnormality. The findings were communicated with Josh Gomez at 12/17/2024 7:00 PM by telephone.
--- NOTE | 2024-12-17 19:12 | RAD REPORT ---
EXAMINATION: CTA HEAD CLINICAL INDICATION: SLURRED SPEECH TECHNIQUE: Axial CT images were obtained through the head after intravenous contrast utilizing angio raph protocol with 3D post-processing (maximum intensity projection images, volume rendered images and/or shaded surface rendered images). One or more of the following dose reduction technique s were used: Automated exposure control, adjustment of the mA and/or kV according to patient size, and/or iterative reconstruction. Unless otherwise specified, incidental findings do not require dedic ated imaging follow-up. COMPARISON: No prior exam. FINDINGS: ICA: The petrous, cavernous, and supraclinoid segments of the bilateral internal carotid arteries are normal. The ophthalmic artery origins are visualized and normal. The posterior communicating arteries are patent. JOSE EDUARDO: Anterior cerebral arteries are normal bilaterally. The anterior communicating artery is patent. MCA: Middle cerebral arteries are normal bilaterally. ASSOCIATE PROFESSOR OF KINESIOLOGY: Posterior cerebral arteries are normal bilaterally. Vertebrobasilar: The vertebral arteries are patent. Left vertebral artery is dominant. The basilar ar viktor is normal in appearance. 3D images confirm these findings. IMPRESSION: No significant flow abnormality is identified.
--- NOTE | 2024-12-17 19:19 | RAD REPORT ---
EXAMINATION: CTA NECK CLINICAL INDICATION: slurred speech TECHNIQUE: Axial CT images were obtained from the aortic arch to the skull base after intravenous con trast utilizing angiographic protocol with 3D post-processing (maximum intensity projection images, volume rendered images and/or shaded surface rendered images). One or more of the following dose redu ction techniques were used: Automated exposure control, adjustment of the mA and/or kV according to patient size, and/or iterative reconstruction. Unless otherwise specified, incidental findings do not require dedicated imaging follow-up. COMPARISON: No prior exam. FINDINGS: AORTA: The imaged aortic arch is normal. CCA: The common carotid arteries are patent and normal in caliber. ICA/ECA: Mild left carotid bulb plaque results in mild narrowing less than 50%. Moderately significan t circumferential hard plaque right carotid bulb results in 90% stenosis. VERTEBRAL: The right cervical vertebral is quite diminutive but does show flow. There are several are as of stenosis present right V4 segment. SOFT TISSUE: No significant neck soft tissue abnormalities. The visualized lung apices are clear. 3D images confirm these findings. IMPRESSION: 90% stenosis of the right carotid bulb caused by circumferential hard plaque. NASCET criteria used. Mild 0-49% stenosis Moderate 50-69% stenosis Severe 70-99% stenosis
[2024-12-17 19:49] LABS: Specific Gravity 1.029 (1.005-1.030); Sqamous Epithelial <5 /HPF (None Seen); Urine Bacteria None Seen /HPF (<20); Urine Bilirubin NEGATIVE (Negative); Urine Blood Negative (Negative); Urine Clarity Clear (Clear); Urine Color Light-Yellow (Yellow); Urine Crystals Unidentified Few /HPF (None Seen); Urine Culture Reflex Order NOT NEEDED; Urine Glucose NEGATIVE (Negative); Urine Ketones NEGATIVE (Negative); Urine Micro Reflex YN NO BILL MICROSCOPIC; Urine Nitrite NEGATIVE (Negative); Urine Protein NEGATIVE (Negative); Urine RBC <5 /HPF (None Seen); Urine Urobilinogen Normal (Normal); Urine WBC <5 /HPF (<5); Urine Yeast (Budding) Trace /HPF (None Seen); Urine pH 6.5 (5.0-7.0)
--- NOTE | 2024-12-17 20:17 | P.HP ---
Certification for Inpatient Patient admitted to: Inpatient With expected LOS: >2 Midnights Practitioner: I am a practitioner with admitting privileges, knowledge of patient current condition, hospital course, and medical plan of care. Services: Services provided to patient in accordance with Admission requirements found in Title 42 Section 412.3 of the Code of Federal Regulations Patient History Date of Service: 12/17/24 Reason for admission: Fall / Hypotension History of Present Illness: 74 yrs old Male with past medical history of dementia, diabetes, constipation, hypertension, Parkinson's disease, schizophrenia, bipolar disorder, who is a [facility] resident because of advanced dementia brought to ER with repeated falls. Patient is a poor historian hence most of the history is obtained from the chart review and also talking to the ER physician and the family member at the bedside. Patient apparently had frequent falls recently. He had a fall today and hit his head on the back and has developed some slurring of speech and was brought to the ER for concern of CVA . Patient denies any headache. Patient has pain in the lower spinal region because of the fall. Denies any fever or chills. No no nausea vomiting or diarrhea. Patient has not been eating well as per the family Patient was assessed in the ER and was admitted for further management . Allergies No Known Allergies Allergy (Verified 03/04/23 01:13) Home medications list reviewed: Yes Home Medications: Carbidopa/Levodopa 25-100 [Sinemet 25-100*] 2 tab PO Q6H 03/04/19 Memantine HCl [Namenda] 1 tab PO BID 03/04/19 Rivastigmine Tartrate [Rivastigmine] 1 tab PO BID 03/04/19 Duloxetine HCl [Cymbalta] 2 cap PO BEDTIME 12/27/20 Acetaminophen [Tylenol] 2 tab PO Q4H PRN 03/04/23 Aspirin 81 mg PO DAILY 03/04/23 Buspirone HCl [Buspar*] 2 tab PO TID 03/04/23 Clopidogrel Bisulfate [Plavix] 75 mg PO DAILY 03/04/23 Divalproex Sodium 2 tab PO BID 03/04/23 Ergocalciferol (Vitamin D2) [Vitamin D2] 1,250 mcg PO SEECOM 03/04/23 Gabapentin 100 mg PO TID 03/04/23 Guaifenesin [Cough Syrup] 15 ml PO Q4HP PRN 03/04/23 Hydrocodone 10/APAP 325 [[place] 10/325] 1 tab PO Q6H PRN #30 tab 03/04/23 Insulin Glargine,Hum.rec.anlog [Basaglar Kwikpen U-100] 70 unit SQ DAILY 03/04/23 Lactulose 10 gm PO DAILY 03/04/23 Pantoprazole [Protonix Tab*] 40 mg PO DAILYAC #30 tab 03/04/23 Polyethyl Gly 3350 [Glycolax*] 17 gm PO DAILY PRN #30 udbot 03/04/23 Pramipexole Di-HCl [Mirapex] 0.25 mg PO TID 03/04/23 Quetiapine Fumarate [Seroquel] 25 mg PO DAILY 03/04/23 Quetiapine Fumarate [Seroquel] 50 mg PO BEDTIME 03/04/23 predniSONE [Deltasone] 20 mg PO DAILY #5 tab 03/04/23 tadalafiL [Cialis] 5 mg PO SEECOM PRN 03/04/23 - Past Medical/Surgical History Diabetic: Yes Past Medical History: Reviewed- Non-Contributory -: Diabetes mellitus type 2 -: Hypertension -: Parkinson's -: Bipolar disorder -: Dementia Past Surgical History: Reviewed- Non-Contributory -: Arm surgery -: Left knee replacement Psychosocial/ Personal History: Patient is . Lives at home. Patient has home care provider. - Family History Family History: Reviewed- Non-Contributory - Family History Mother -: Other (see notes) - Social History Smoking Status: Never smoker Alcohol use: No CD- Drugs: No Caffeine use: Yes Review of Systems 10-point ROS is otherwise unremarkable Physical Examination - Vital Signs Temperature: 97.9 F Blood Pressure: 86/48 Pulse: 78 Respirations: 18 Pulse Ox (%): 94 - Physical Exam General: Alert, In no apparent distress, Oriented x1 HEENT: Atraumatic, Normocephalic Neck: Supple Respiratory: Clear to auscultation bilaterally, Normal air movement Cardiovascular: Regular rate/rhythm, Normal S1 S2 Capillary refill: <2 Seconds Gastrointestinal: Soft and benign, W/out hepatosplenomegaly Musculoskeletal: No clubbing, No swelling Integumentary: No rashes, No tenderness/swelling Neurological: Normal speech, Other (Alert awake nonfocal) Lymphatics: No axilla or inguinal lymphadenopathy - Studies Laboratory Data (last 24 hrs) 12/17/24 12/17/24 12/17/24 18:30 18:30 18:30 WBC 5.20 Hgb 11.7 L Hct 33.6 L Plt Count 130 L PT 11.2 INR 0.98 APTT 36.5 Sodium 137 Potassium 3.6 BUN 25 H Creatinine 0.95 Glucose 115 H Total Bilirubin 0.4 AST 17 ALT < 14 L Alkaline Phosphatase 98 Assessment and Plan - Plan Fall Slurring of speech Acute encephalopathy possibly metabolic History of frequent falls Advanced dementia Hypertension Dehydration Diabetes Hypotension with a history of hypertension Parkinson's disease Bipolar disorder History of schizophrenia Carotid artery stenosis Plan Stroke workup CT CTA findings noted Monitor neuro vital signs closely Continue home medications and titrate as needed Started on IV hydration will obtain cultures Monitor renal parameters IV hydration Monitor closely on telemetry PT OT evaluation Patient noted to be in hypoglycemic now Will hold home insulin Supportive measures GI/DVT prophylaxis Advanced directive full code for now Discharge Plan: [facility] Plan to discharge in: 48 Hours - Advance Directives Does patient have a Living Will: No Does patient have a Durable POA for Healthcare: No - Code Status/Comfort Care Code Status: Full Code Time Spent Managing Pts Care (In Minutes): 54
[2024-12-17] MEDS ORDERED: ONDANSETRON 4 MG/2 ML VIAL IV PRN (20:18)
[2024-12-17] MEDS ORDERED: CEFEPIME 2 GM VIAL ONE (20:42)
[2024-12-17] MEDS ORDERED: NA CHLORIDE 0.9% 1,000 ML ONE (20:43)
[2024-12-17] MEDS ORDERED: NA CHLORIDE 0.9% 100 ML ONE (20:43)
[2024-12-17] MEDS: NA CHLORIDE 0.9% 1,000 ML IV SCH (21:00)
--- NOTE | 2024-12-17 21:10 | ER ---
Nurse's Notes [facility] Name: Geraldo Solis Age: 74 yrs Sex: Male : 1950 Arrival Date: 12/17/2024 Time: 18:03 Bed 4 Private MD: Diagnosis: Sepsis, unspecified organism Presentation: 12/17 18:04 Chief complaint: EMS states: Unwitnessed fall now c/o headache, NH staff reports hb slurred speech is new but pt denies.. Takes Plavix. BP 146/86, HR 80s, BGL 123. Coronavirus screen: At this time, the client does not indicate any symptoms associated with coronavirus-19. Ebola Screen: No symptoms or risks identified at this time. Initial Sepsis Screen: Does the patient meet any 2 criteria? No. Patient's initial sepsis screen is negative. Does the patient have a suspected source of infection? No. Patient's initial sepsis screen is negative. Risk Assessment: Do you want to hurt yourself or someone else? Patient reports no desire to harm self or others. Onset of symptoms was December 17, 2024. 18:04 Method Of Arrival: EMS: [facility] hb 18:04 Acuity: MARKO 2 hb Historical: - Allergies: 18:10 No Known Allergies; hb - PMHx: 18:10 Bipolar disorder; Dementia; Diabetes - NIDDM; constipation; Hypertension; Parkinsons; hb Schizophrenia; - Immunization history:: Adult Immunizations up to date. - Infectious Disease History:: Denies. - Social history:: Smoking status: Patient denies any tobacco usage or history of. - Family history:: not pertinent. Screenin:[address] [facility] ED Fall Risk Assessment (Adult) History of falling in the last 3 months, le1 including since admission Yes- fall prone (multiple falls) (3 pts) Confusion or Disorientation No (0 pts) Intoxicated or Sedated No (0 pts) Impaired Gait Yes (1 pt) Mobility Assist Device Used Yes (1 pt) Altered Elimination Yes (1 pt) Score/Fall Risk Level 3 or more points = High Risk Oriented to surroundings, Maintained a safe environment, Educated pt \T\ family on fall prevention, incl call for assistance when getting out of bed, Assessed \T\ reinforced patient's understanding of fall precautions, Hourly rounding (assess needs \T\ fall precautionary measures) done, Used ambulatory aids as needed (educated on \T\ assisted with), Apply high fall risk patient identification: yellow non skid footwear/ fall signage, Remained with patient while ambulating, Utilized family, sitter, or virtual highway construction inspector as indicated. Abuse screen: Denies threats or abuse. Denies injuries from another. Nutritional screening: No deficits noted. Tuberculosis screening: No symptoms or risk factors identified. Primary Survey: 18:49 NO uncontrolled hemorrhage observed. A: The client is awake and alert. The airway is le1 patent. Breathing/Chest: Spontaneous respiratory effort, equal unlabored respirations, breath sounds clear bilaterally, regular pattern, symmetrical chest rise and fall. Circulation: No external hemorrhage present. Regular and strong central pulse, skin warm/dry/normal color. Disability Client is alert. Exposure/Environment: All clothing and personal items were removed. Forensic evidence collection is not deemed to be indicated at this time. Items placed in patient belonging bag. Reassessment Alertness and Airway: Awake and alert. The airway is patent. Breathing: Spontaneous respiratory effort, equal unlabored respirations, breath sounds clear bilaterally, regular pattern with symmetrical chest rise and fall. Circulation: No external hemorrhage noted. Regular and strong central pulse, skin warm/dry/normal color. Disability: Alert. Assessment: 18:06 Reassessment: Dr. Gomez at bedside to evaluate pt. hb 18:44 General: Appears in no apparent distress. comfortable, Behavior is calm, cooperative, le1 drowsy. Pain: Denies pain. Neuro: Brice Agitation-Sedation Scale (RASS): -1 Drowsy Level of Consciousness is obeys commands, lethargic, Oriented to person, place, time, situation, Facial symmetry appears normal, Pupils are PERRLA, Intact. Neuro: Cardiovascular: No deficits noted. Respiratory: No deficits noted. GI: No deficits noted. : No deficits noted. EENT: No deficits noted. Musculoskeletal: No deficits noted. Vital Signs: 18:04 BP 80 / 44; Pulse 78; Resp 16; Temp 97.9; Pulse Ox 100% on R/A; Pain 5/10; hb 19:13 BP 132 / 66; Pulse 66; Resp 15; Pulse Ox 99% ; cm10 19:30 BP 109 / 56; Pulse 66; Resp 20; Pulse Ox 100% on R/A; cm10 20:00 BP 119 / 81; Pulse 66; Resp 16; Pulse Ox 99% on R/A; dd2 21:00 BP 119 / 68; Pulse 64; Resp 16; Pulse Ox 99% on R/A; dd2 18:04 Pain Scale: Adult hb Radha Coma Score: 18:50 Eye Response: spontaneous(4). Motor Response: obeys commands(6). Verbal Response: le1 oriented(5). Total: 15. Trauma Score (Adult): 18:50 Eye Response: spontaneous(1); Verbal Response: oriented(1); Motor Response: obeys le1 commands(2); Systolic BP: 76 to 89 mm Hg(3); Respiratory Rate: 10 to 29 per min(4); [place] Score: 15; Trauma Score: 11 ED Course: 18:04 Patient arrived in ED. hb 18:04 Josh Gomez MD is Attending Physician. rt 18:10 Triage completed. hb 18:10 Arm band placed on. hb 18:16 Don Puente, RN is Primary Nurse. le1 18:25 Initial lab(s) drawn, by me, sent to lab. First set of blood cultures drawn by me. le1 18:30 Second set of blood cultures drawn by me. le1 18:39 Stroke CXR 1 View In Process Unspecified. EDMS 18:46 Patient has correct armband on for positive identification. Fall risk band placed. Bed le1 in low position. Call light in reach. Side rails up X2. Adult w/ patient. Provided Education on: Informed to use call light when needed. 18:47 Inserted saline lock: 22 gauge in right forearm, using aseptic technique. Blood le1 collected. Flushed with 10 mL NS. 18:54 CT Head Angio In Process Unspecified. EDMS 18:54 CT Neck Angio In Process Unspecified. EDMS 18:54 CT Stroke Brain w/o Contrast In Process Unspecified. EDMS 19:32 AMMONIA Sent. bf2 19:32 UAM Sent. bf2 21:09 Shorty Peres MD is Hospitalizing Provider. ec2 21:34 Client placed on continuous cardiac and pulse oximetry monitoring. NIBP monitoring dd2 applied. youth nutritional monitor on. Door closed. Noise minimized. Warm blanket given. Pillow given. Verbal reassurance given. 21:34 No provider procedures requiring assistance completed. Patient admitted, IV remains in dd2 place. Patient maintains SpO2 saturation greater than 95% on room air. Administered Medications: 20:50 Drug: NS 0.9% IV 1000 ml IV at 1 bolus Per protocol; to be given as a bolus over 60 cm10 minutes Route: IV; Rate: 1 bolus; Site: right antecubital; 21:50 Follow up: IV Status: Completed infusion; IV Intake: 1000ml dd2 20:50 Drug: Cefepime IVPB 2 grams IVPB at 200 ml/hr once over 30 mins; (mix in NS 100 mL) cm10 Route: IVPB; Rate: 200 ml/hr; Infused Over: 30 mins; Site: right antecubital; 21:25 Follow up: IV Status: Completed infusion; IV Intake: 100ml dd2 Medication: 18:06 VIS not applicable for this client. hb Intake: 18:50 PO: 0ml; Total: 0ml. le1 21:25 IV: 100ml; Total: 100ml. dd2 21:50 IV: 1000ml; Total: 1100ml. dd2 Output: 18:50 Urine: 0ml; Total: 0ml. le1 Outcome: 21:09 Decision to Hospitalize by Provider. ec2 22:09 Admitted to Med/surg accompanied by tech, via stretcher, with chart, dd2 22:09 Condition: stable 22:09 Instructed on the need for admit, 22:10 Patient left the ED. dd2 Signatures: Dispatcher [employer] EDJoslyn Schulz RN RN Josh Gomez MD MD rt Roxy Savage RN RN cm10 Michael Charles MD MD 2 [facility] Don Puente RN RN le1 TIMA MCGHEE RN RN dd2
--- NOTE | 2024-12-17 21:10 | EDPHYS ---
Physician Documentation [facility] Name: Geraldo Solis Age: 74 yrs Sex: Male : 1950 Arrival Date: 12/17/2024 Time: 18:03 Bed 4 Private MD: ED Physician Josh Gomez HPI: 12/17 19:22 This 74 yrs old Male presents to ER via EMS with complaints of Fall Injury. rt 19:22 History limited due to patient with advanced dementia, patient [facility], was unwitnessed, is had frequent falls recently. Patient reportedly hit the back of his head. assisted stated that the patient has had slurred speech, patient denies this, attributes them to his dentures. The patient's states that his slurred speech is new, but unclear when it started as last time she spoke with the patient was several days ago. Denies other acute complaints at this time, symptoms are in severity, no other aggravating or alleviating factors.. Historical: - Allergies: 18:10 No Known Allergies; hb - PMHx: 18:10 Bipolar disorder; Dementia; Diabetes - NIDDM; constipation; Hypertension; Parkinsons; hb Schizophrenia; - Immunization history:: Adult Immunizations up to date. - Infectious Disease History:: Denies. - Social history:: Smoking status: Patient denies any tobacco usage or history of. - Family history:: not pertinent. ROS: 19:22 Unable to obtain ROS due to baseline dementia, rt Exam: 19:22 ECG was reviewed by the Attending Physician. rt 19:22 Neuro: Slurred speech noted, mild, no aphasia, no cranial nerve deficits, visual rubio are intact, strength and sensation intact in upper and lower extremities., 19:24 Constitutional: This is a well developed, well nourished patient who is awake, alert, rt and in no acute distress. Head/Face: Normocephalic, atraumatic. Chest/axilla: Normal chest wall appearance and motion. Nontender with no deformity. No lesions are appreciated. Cardiovascular: Regular rate and rhythm with a normal S1 and S2. No gallops, murmurs, or rubs. Normal PMI, no JVD. No pulse deficits. Respiratory: Lungs have equal breath sounds bilaterally, clear to auscultation and percussion. No rales, rhonchi or wheezes noted. No increased work of breathing, no retractions or nasal flaring. Abdomen/GI: Soft, non-tender, with normal bowel sounds. No distension or tympany. No guarding or rebound. No evidence of tenderness throughout. Skin: Warm, dry with normal turgor. Normal color with no rashes, no lesions, and no evidence of cellulitis. Vital Signs: 18:04 BP 80 / 44; Pulse 78; Resp 16; Temp 97.9; Pulse Ox 100% on R/A; Pain 5/10; hb 19:13 BP 132 / 66; Pulse 66; Resp 15; Pulse Ox 99% ; cm10 19:30 BP 109 / 56; Pulse 66; Resp 20; Pulse Ox 100% on R/A; cm10 20:00 BP 119 / 81; Pulse 66; Resp 16; Pulse Ox 99% on R/A; dd2 21:00 BP 119 / 68; Pulse 64; Resp 16; Pulse Ox 99% on R/A; dd2 18:04 Pain Scale: Adult hb Radha Coma Score: 18:50 Eye Response: spontaneous(4). Motor Response: obeys commands(6). Verbal Response: le1 oriented(5). Total: 15. Trauma Score (Adult): 18:50 Eye Response: spontaneous(1); Verbal Response: oriented(1); Motor Response: obeys le1 commands(2); Systolic BP: 76 to 89 mm Hg(3); Respiratory Rate: 10 to 29 per min(4); Radha Score: 15; Trauma Score: 11 MDM: 18:05 Medical Screening Exam initiated rt 19:41 Differential diagnosis: Hypotension, dysrhythmia, CVA, sepsis. Data reviewed: vital rt signs, nurses notes, lab test result(s), EKG, radiologic studies. Consideration of Admission/Observation Patient was admitted/placed on observation. Management of patient was discussed with the following: Hospitalist: Agrees to. I considered the following discharge prescriptions or medication management in the emergency department Medications were administered in the Emergency Department. See MAR. Independent interpretation of the following test(s) in the Emergency Department CT Scan: My interpretation is No intracranial hemorrhage seen on interpretation of CT scan images. Care significantly affected by the following chronic conditions: Diabetes. Post IV fluid administration reassessment for Sepsis: Client not prescribed the 30 mL/kg IVF due to: Amount of IVF prescribed: 1000 Blood pressure normalized after 1 L of fluids Sepsis focused reassessment complete. Focused assessment performed: December 17, 2024 at 19:42 Heart: Regular rate/rhythm. Lungs: noted to be clear bilaterally. Neuro: Patient's neurological exam did not improve from previous exam. Cardio: Cardiovascular exam improved from previous exam. Heart rate and blood pressure have improved. Counseling: I had a detailed discussion with the patient and/or guardian regarding the historical points, exam findings, and any diagnostic results supporting the discharge/admit diagnosis, lab results, radiology results, the need for further work-up and treatment in the hospital. Response to treatment: the patient's symptoms have markedly improved after treatment. 12/17 18:10 Order name: Basic Metabolic Panel; Complete Time: 19:20 rt 12/17 18:10 Order name: CBC with Diff; Complete Time: 19:20 rt 12/17 18:10 Order name: Hepatic Function; Complete Time: 19:20 rt 12/17 18:10 Order name: High Sensitivity Troponin; Complete Time: 19:20 rt 12/17 18:10 Order name: Protime (+inr); Complete Time: 18:52 rt 12/17 18:10 Order name: Ptt, Activated; Complete Time: 18:52 rt 12/17 18:10 Order name: Blood Culture Adult (2) rt 12/17 18:10 Order name: Lactate w/ 2H reflex if indic.; Complete Time: 19:20 rt 12/17 18:52 Order name: UAM; Complete Time: 21:00 rt 12/17 18:57 Order name: AMMONIA; Complete Time: 21:00 rt 12/17 19:06 Order name: Ghost Lactate-NO COLLECT Timer EDMS 12/17 20:23 Order name: Urinalysis w/ reflexes EDMS 12/17 20:23 Order name: CBC with Automated Diff EDMS 12/17 20:23 Order name: CBC with Automated Diff EDMS 12/17 20:23 Order name: Comprehensive Metabolic Panel EDMS 12/17 20:23 Order name: Comprehensive Metabolic Panel EDMS 12/17 20:23 Order name: Troponin High Sensitivity EDMS 12/17 20:23 Order name: Troponin High Sensitivity EDMS 12/17 20:24 Order name: Troponin High Sensitivity EDMS 12/17 20:24 Order name: Troponin High Sensitivity EDMS 12/17 18:10 Order name: CT Head Angio; Complete Time: 19:20 rt 12/17 18:10 Order name: CT Neck Angio; Complete Time: 19:20 rt 12/17 18:10 Order name: CT Stroke Brain w/o Contrast; Complete Time: 19:20 rt 12/17 18:10 Order name: Stroke CXR 1 View; Complete Time: 18:52 rt 12/17 18:10 Order name: Accucheck; Complete Time: 18:44 rt 12/17 18:10 Order name: Cardiac monitoring; Complete Time: 18:44 rt 12/17 18:10 Order name: EKG - Nurse/Tech; Complete Time: 18:44 rt 12/17 18:10 Order name: IV Saline Lock; Complete Time: 18:44 rt 12/17 18:10 Order name: Labs collected and sent; Complete Time: 18:44 rt 12/17 18:10 Order name: NPO; Complete Time: 18:44 rt 12/17 18:10 Order name: O2 Per Protocol; Complete Time: 18:44 rt 12/17 18:10 Order name: O2 Sat Monitoring; Complete Time: 18:44 rt 12/17 18:10 Order name: Stroke Swallow Screen rt 12/17 18:10 Order name: IV Saline Lock - Large Bore; Complete Time: 18:44 rt 12/17 18:10 Order name: Vital Signs; Complete Time: 18:44 rt EC:22 Rate is 63 beats/min. Rhythm is regular, Normal Sinus Rhythm with No ectopy. QRS [place] rt is Normal. [place] interval is normal. QRS interval is normal. QT interval is normal. No Q waves. No ST changes noted. Interpreted by me. Administered Medications: 20:50 Drug: NS 0.9% IV 1000 ml IV at 1 bolus Per protocol; to be given as a bolus over 60 cm10 minutes Route: IV; Rate: 1 bolus; Site: right antecubital; 21:50 Follow up: IV Status: Completed infusion; IV Intake: 1000ml dd2 20:50 Drug: Cefepime IVPB 2 grams IVPB at 200 ml/hr once over 30 mins; (mix in NS 100 mL) cm10 Route: IVPB; Rate: 200 ml/hr; Infused Over: 30 mins; Site: right antecubital; 21:25 Follow up: IV Status: Completed infusion; IV Intake: 100ml dd2 Disposition Summary: 12/17/24 21:09 Hospitalization Ordered Notes: Hospitalization Status: Inpatient Admission ec2 Provider: Shorty Peres ec2 Location: Telemetry/MedSurg (Inpatient) ec2 Condition: Stable ec2 Problem: new ec2 Symptoms: have improved ec2 Bed/Room Type: Standard ec2 Room Assignment: 416(12/17/24 21:10) Diagnosis - Sepsis, unspecified organism ec2 Forms: - Medication Reconciliation Form ec2 - SBAR form ec2 - Leadership Thank You Letter ec2 Critical care time excluding procedures: 19:41 Critical care time: Bedside Care: 30 minutes, Consultation: 5 minutes. Total time: 35 rt minutes Signatures: Dispatcher [employer] Flor Albright RN RN Joslyn Branch RN RN Josh Gomez MD MD rt Roxy Savage RN RN cm10 Michael Charles MD MD ec2 TIMA MCGHEE RN dd2 Corrections: (The following items were deleted from the chart) 18:10 18:10 Head Angio+CT.RAD.BRZ ordered. EDMS EDMS 18:10 18:10 Neck Angio+CT.RAD.BRZ ordered. EDMS EDMS 18:10 18:10 CT-STROKE BRAIN W/O CONTRAST+CT.RAD.BRZ ordered. EDMS EDMS 18:10 18:10 Chest Single View+RAD.RAD.BRZ ordered. EDMS EDMS 18:11 18:11 BLOOD CULTURE*+BA.LAB.BRZ ordered. EDMS EDMS 18:11 18:11 LACTATE+C.LAB.BRZ ordered. EDMS EDMS 18:57 18:57 AMMONIA+C.LAB.BRZ ordered. EDMS EDMS 21:10 21:09 ec2 cg
[2024-12-17] MEDS: D5 0.45 NS 1,000 ML IV SCH (23:59)
[2024-12-18 01:37] VITALS: BMI 34.5
[2024-12-18 04:34] LABS: Absolute Eosinophils 0.1 K/uL (0-0.5); Absolute Lymphocytes (CBC) 1.5 K/uL (0.7-4.9); Absolute Monocytes 0.8 K/uL (0.1-1.3); Absolute Neutrophil 2.8 K/uL (1.8-8.0); Basophils % 0.9 % (0-1.3); Eosinophils % 1.6 % (0-4.4); Hematocrit 32.1 % (39.6-49.0); Hemoglobin 11.2 g/dL (13.6-17.9); Lymphocytes % 28.5 % (15.3-44.8); MCH 33.4 pg (27.0-35.0); MCV 95.3 fL (80-100); MPV 8.3 fL (7.6-11.3); Monocytes % 14.8 % (3.3-12.3); Neutrophils % 54.2 % (41.7-73.7); Nucleated Red Blood Cells % 0.2 % (0-0); Platelets 137 thou/uL (152-406); RBC Red Blood Cell Count 3.36 M/uL (4.33-5.43); Red Cell Distribution Width 13.3 % (12.1-15.2)
[2024-12-18 04:51] LABS: AST/SGOT 14 U/L (15-37); Albumin 2.3 g/dL (3.4-5.0); Albumin/Globulin Ratio 0.8 (1.1-1.8); Alkaline Phosphatase 71 U/L (45-117); Anion Gap 7.7 mEq/L (5.0-15.0); BUN Blood Urea Nitrogen 17 mg/dL (7-18); Bicarbonate 30 mEq/L (21-32); Bilirubin Total 0.4 mg/dL (0.2-1.0); Glomerular Filtration Rate 96 ml/min (=/>90); Glucose Level 122 mg/dL (74-106); Potassium 3.7 mEq/L (3.5-5.1); Protein, Total 5.3 g/dL (6.4-8.2); Sodium Level 143 mEq/L (136-145); Troponin High Sensitivity 8.3 pg/mL (<58.9)
[2024-12-18 05:00] LABS: ALT/SGPT < 14 U/L (16-61)
[2024-12-18] MEDS: POTASSIUM 25 MEQ EFFERV TAB PO ONE (05:33)
--- NOTE | 2024-12-18 06:48 | P.PN ---
Subjective Date of Service: 12/18/24 Chief Complaint: Fall / Hypotension Review of Systems 10-point ROS is otherwise unremarkable Physical Examination - Vital Signs Temperature: 97.8 F Blood Pressure: 137/67 Pulse: 71 Respirations: 16 Pulse Ox (%): 95 - Physical Exam General: Alert, In no apparent distress HEENT: Atraumatic, Normocephalic Neck: Supple Respiratory: Clear to auscultation bilaterally, Crackles/rales Cardiovascular: Regular rate/rhythm, Normal S1 S2 Capillary refill: <2 Seconds Gastrointestinal: Soft and benign, W/out hepatosplenomegaly Musculoskeletal: No clubbing Integumentary: No rashes Neurological: Other (Alert) - Studies Laboratory Data (last 24 hrs) 12/17/24 12/17/24 12/17/24 18:30 18:30 18:30 WBC 5.20 Hgb 11.7 L Hct 33.6 L Plt Count 130 L PT 11.2 INR 0.98 APTT 36.5 Sodium 137 Potassium 3.6 BUN 25 H Creatinine 0.95 Glucose 115 H Total Bilirubin 0.4 AST 17 ALT < 14 L Alkaline Phosphatase 98 Assessment And Plan - Plan Fall Slurring of speech Acute encephalopathy possibly metabolic History of frequent falls Advanced dementia Hypertension Dehydration Diabetes Hypotension with a history of hypertension Parkinson's disease Bipolar disorder History of schizophrenia Carotid artery stenosis Plan Stroke workup CT CTA findings noted Monitor neuro vital signs closely Continue home medications and titrate as needed Started on IV hydration will obtain cultures Monitor renal parameters IV hydration Monitor closely on telemetry PT OT evaluation Patient noted to be in hypoglycemic now Will hold home insulin Supportive measures GI/DVT prophylaxis Advanced directive full code for now Time Spent Managing PTS Care (In Minutes): 47
[2024-12-18] MEDS ORDERED: D10W 125 ML IV PRN (08:43)
[2024-12-18] MEDS ORDERED: GLUCAGON 1 MG/VIAL IM PRN (08:43)
[2024-12-18] MEDS: ACETAMINOPHEN 325 MG TABLET PO PRN (17:26)
[2024-12-18] MEDS ORDERED: DICYCLOMINE HCL 10 MG CAP PO PRN (21:24)
[2024-12-18] MEDS: QUETIAPINE 25 MG TAB ONE (21:28)
[2024-12-18] MEDS: QUETIAPINE 100MG TAB ONE (21:28)
[2024-12-18] MEDS: QUETIAPINE 100MG TAB PO SCH (21:54)
--- NOTE | 2024-12-19 00:35 | P.PN ---
Subjective Date of Service: 12/19/24 Physical Examination - Vital Signs Temperature: 97.8 F Blood Pressure: 137/67 Pulse: 71 Respirations: 16 Pulse Ox (%): 95 Assessment & Plan - Problems (Diagnosis) (1) Acute CVA (cerebrovascular accident) Current Visit: Yes Status: Acute (2) Diabetes Current Visit: No Status: Acute Qualifiers: Diabetes mellitus type: type 2 (3) HTN (hypertension) Current Visit: No Status: Acute Qualifiers: Hypertension type: primary hypertension Qualified Code(s): I10 - Essential (primary) hypertension (4) Parkinson disease Current Visit: No Status: Acute (5) Dementia Current Visit: Yes Status: Acute (6) Bipolar affect, depressed Current Visit: No Status: Acute Qualifiers: Current episode severity: mild Qualified Code(s): F31.31 - Bipolar disorder, current episode depressed, mild (7) Schizophrenia Current Visit: Yes Status: Acute - Plan Plan: 1. Altered mental status with acute CVA 2. Metabolic syndrome 3. Bipolar disorder 4. Dementia Discharge Plan: Home Plan to discharge in: Greater than 2 days - Advance Directives Does patient have a Living Will: Yes Does patient have a Durable POA for Healthcare: No - Code Status/Comfort Care Code Status: Full Code Critical Care: No Time Spent Managing PTS Care (In Minutes): 35
[2024-12-19 06:32] LABS: Anion Gap 7.6 mEq/L (5.0-15.0); Potassium 4.6 mEq/L (3.5-5.1)
[2024-12-19 07:44] LABS: Absolute Basophils 0.1 K/uL (0-0.5); Absolute Eosinophils 0.2 K/uL (0-0.5); Absolute Monocytes 1.3 K/uL (0.1-1.3); Absolute Neutrophil 4.8 K/uL (1.8-8.0); Basophils % 0.9 % (0-1.3); Eosinophils % 2.1 % (0-4.4); Hematocrit 39.7 % (39.6-49.0); Hemoglobin 13.5 g/dL (13.6-17.9); MCH 32.4 pg (27.0-35.0); MCV 95.4 fL (80-100); MPV 7.7 fL (7.6-11.3); Monocytes % 15.4 % (3.3-12.3); Neutrophils % 57.6 % (41.7-73.7); Nucleated Red Blood Cells % 0.1 % (0-0); Platelets 194 thou/uL (152-406); RBC Red Blood Cell Count 4.16 M/uL (4.33-5.43); Red Cell Distribution Width 13.1 % (12.1-15.2)
[2024-12-19] MEDS: MEMANTINE HCL 10 MG TABLET PO SCH (09:18)
[2024-12-19] MEDS: CLOPIDOGREL 75 MG TABLET PO SCH (09:18)
[2024-12-19] MEDS: DIVALPROEX DR 500MG TAB PO SCH (09:18)
[2024-12-19] MEDS: GABAPENTIN 100 MG CAP PO SCH (09:18)
[2024-12-19] MEDS: CARBIDOPA/LEVODOPA 25/100 TAB PO SCH (09:18)
[2024-12-19] MEDS: LOSARTAN POTASSIUM 50 MG TABLET PO SCH (09:18)
[2024-12-19] MEDS: ASPIRIN 81 MG CHEWABLE TABLET PO SCH (09:19)
[2024-12-19] MEDS: VITAMIN D 5,000 UNIT CAP PO SCH (09:19)
--- NOTE | 2024-12-19 10:57 | RAD REPORT ---
EXAM: XR Knee Right 2 View HISTORY: Right Knee Swelling and Pain COMPARISON: 01/01/2017 TECHNIQUE: 3 views of the right knee were obtained. FINDINGS: Small knee effusion is seen. There is no evidence of acute fracture or dislocation. Modera te tricompartmental osteoarthritic changes, most pronounced along the medial weightbearing compartment. No soft tissue swelling or other soft tissue abnormality is present. IMPRESSION: No evidence of acute osseous abnormality. Moderate degenerative changes. Small effusion.
[2024-12-19] MEDS: dexAMETHasone 4 MG/ML VIAL IV ONE (11:49)
[2024-12-19] MEDS: DULOXETINE 30 MG CAP PO SCH (21:07)
[2024-12-19] MEDS: TRAZODONE 50 MG TABLET PO SCH (21:08)
[2024-12-20 04:38] VITALS: O2SAT 98
[2024-12-20 12:55] LABS: Absolute Basophils 0.1 K/uL (0-0.5); Absolute Eosinophils 0.1 K/uL (0-0.5); Absolute Lymphocytes (CBC) 2.3 K/uL (0.7-4.9); Absolute Monocytes 1.2 K/uL (0.1-1.3); Absolute Neutrophil 8.5 K/uL (1.8-8.0); Basophils % 0.6 % (0-1.3); Eosinophils % 1.1 % (0-4.4); Hematocrit 35.7 % (39.6-49.0); Hemoglobin 12.4 g/dL (13.6-17.9); Lymphocytes % 18.6 % (15.3-44.8); MCH 32.9 pg (27.0-35.0); MCHC 34.9 g/dL (32.0-36.0); MCV 94.2 fL (80-100); Monocytes % 10.1 % (3.3-12.3); Neutrophils % 69.6 % (41.7-73.7); Nucleated Red Blood Cells % 0.1 % (0-0); Platelets 213 thou/uL (152-406); RBC Red Blood Cell Count 3.79 M/uL (4.33-5.43); Red Cell Distribution Width 13.2 % (12.1-15.2)
[2024-12-20 13:07] LABS: Anion Gap 6.8 mEq/L (5.0-15.0); Potassium 4.8 mEq/L (3.5-5.1)
[2024-12-20 16:11] VITALS: BP 151/76; TEMP 97.9
[2024-12-20] MEDS: INSULIN REGULAR (HUMAN) 100 UNIT/ML SQ ONE (16:35)
[2024-12-20] MEDS: METFORMIN HCL 500 MG TAB PO ONE (16:35)
--- NOTE | 2024-12-20 16:46 | RAD REPORT ---
EXAMINATION: XR RIGHT HIP CLINICAL INDICATION: . hip pain TECHNIQUE: Multiple views of the right hip were obtained. COMPARISON: No prior exam. FINDINGS: Moderate arthritic changes affect the right hip. No fracture, dislocation or AVN pattern ob served. IMPRESSION: Moderate right hip osteoarthritis.
--- NOTE | 2024-12-21 12:45 | EKG ---
Test Date: 2024-12-17 Test Time: 18:30:36 Mainstreaming Facilitator: EDE MEASUREMENT RESULTS: Intervals: Rate: 63 SD: 154 QRSD: 90 QT: 396 QTc: 405 [place]: P: 50 SD: 154 QRS: 20 T: 77 INTERPRETIVE STATEMENTS: Normal sinus rhythm Inferior infarct, age undetermined Possible Anterior infarct, age undetermined Abnormal ECG Compared to ECG 12/27/2020 11:33:44 No significant changes Electronically Signed On 12-21-24 12:31:29 CDT by Sonido Aviles
== END 2024-12-20 20:00 | DRG 64 ==
LOC: ER 18:03 → ERHOLD 20:18 → 4TH 21:11
PROVIDERS: ADMIT Family Medicine; ATTEND Hospitalist
DX: I63.9 Cerebral infarction, unspecified (principal); G93.41 Metabolic encephalopathy; F31.31 Bipolar disorder, current episode depressed, mild; I10 Essential (primary) hypertension; E86.0 Dehydration; F20.9 Schizophrenia, unspecified; E11.649 Type 2 diabetes mellitus with hypoglycemia without coma; E88.810 Metabolic syndrome; I65.29 Occlusion and stenosis of unspecified carotid artery; G20.A1 Parkinson's disease without dyskinesia, without mention of fluctuations; F03.90 Unspecified dementia, unspecified severity, without behavioral disturbance, psychotic disturbance, mood disturbance, and anxiety; R47.81 Slurred speech; R29.6 Repeated falls; Z79.4 Long term (current) use of insulin; Z91.81 History of falling; Z79.02 Long term (current) use of antithrombotics/antiplatelets; Z79.82 Long term (current) use of aspirin; Z79.899 Other long term (current) drug therapy; Z96.652 Presence of left artificial knee joint
CPT/HCPCS: 36415; 70450; 70496; 70498; 71045; 80048; 80053; 80076; 81001; 82140; 82947; 83525; 83605; 84484; 85025; 85610; 85730; 87040; 93005; 96365; 97116; 97161; 97530; 99285; J0692; J1100; J1815; J7030; J7799; Q9967

== ENCOUNTER 2025-07-11 13:21 | Emergency (ER) | payer OTHER ==
--- OUTSIDE RECORDS SUMMARY | 2025-07-11 13:26 | XMS REPORT | Continuity of Care Document ---
Author Name Unknown Address [address] [facility] [place] [address] [facility] Address [address] [place] [address] Care Team Providers Care Show Card Letterer Name Role Phone Ashley Tran MDhme Primary Care Physician RIYA HERNANDEZ Attending Clinician Unavailable Riya Hernandez MD Attending Clinician MONA TOVAR Attending Clinician Unavail able Mona Tovar MD Attending Clinician [phone] Doctor Unassigned, [facility] Attending Clinician U navailable Emelia MOURA Attending Clinician Unavailable Emelia MOURA Attending Clinician Unavailable FABRICIO JONES Attending Clinician Unavailable TIFFANIE COX Attending Clinician Unavailable Tiffanie Cox MD Attending Clinician NICOLAS MOHAN Attending Clinician Unavailable Therapy, [facility] Attending Clinician Unavailable Nicolas Mohan MD Attending Clinician [phone] Doctor Unassigned, [facility] Attending Clinician U Emelia Ambrocio MARGO Admitting Clinician Unavailable TIFFANIE COX Admitting Clinician Unavailable Payers Payer Name Policy Type Policy Number Effective Date Expirati on Date Source [employer] MEDICARE ADVANTAGE Medicare [id number] 2024 00:00:00 [employer] MEDICARE ADV HMO [id number] 2024 00:00:00 [facility] Medicaid [id number] 2023 00:00:00 Problems Condition Name Condition Details Condition Category Status Onset Date Resolution Date Last Treatment Date Treating Clinician Comments Source Abdominal pain Abdominal pain Disease Active 05-02 00:00: 00 Brennan Theodore Acute CVA (cerebrova scular accident) Acute CVA (cerebrova scular accident) Disease Active 05-02 00:00: 00 Brennan Theodore Diabetes Diabetes Disease Active 05-02 00:00: 00 Brennan Theodore Schizophre tasha Schizophre tasha Disease Active 05-02 00:00: 00 Brennan Theodore Edema Edema Disease Active 02-13 00:00: 00 Brennan Theodore Fluctuatin g blood pressure Fluctuatin g blood pressure Disease Active 02-13 00:00: 00 Brennan Theodore PAD (periphera l artery disease) PAD (periphera l artery disease) Disease Active 02-13 00:00: 00 Brennan Theodore Syncope and collapse Syncope and collapse Disease Active 02-13 00:00: 00 Brennan Theodore Primary hypertensi on Primary hypertensi on Disease Active 02-13 00:00: 00 [facility] Edema, unspecifie d type Edema, unspecifie d type Disease Active 02-13 00:00: 00 [facility] Parkinson' s disease without dyskinesia , unspecifie d whether manifestat ions fluctuate Parkinson' s disease without dyskinesia , unspecifie d whether manifestat ions fluctuate Disease Active 02-13 00:00: 00 [facility] Obesity (BMI 30-39.9) Obesity (BMI 30-39.9) Disease Active 02-13 00:00: 00 [facility] Depression Depression Disease Active 2023-10 00:00: 00 Brennan Theodore Diabetes 1.5, 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, managed as type 2 Disease Active 2023-10 00:00: 00 Brennan Theodore Hypertensi on Hypertensi on Disease Active 2023-10 00:00: 00 Brennan Theodore Physical deconditio renuka Physical deconditio renuka Disease Active 04-28 00:00: 00 Brennan Theodore PD (Parkinson 's disease) PD (Parkinson 's disease) Disease Active 12-27 00:00: 00 Brennan Theodore 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 04-29 00:00: 00 Brennan Theodore Vascular parkinsoni sm (CMS/HCC) Vascular parkinsoni sm (CMS/HCC) Disease Active 12-17 00:00: 00 Brennan Theodore Bipolar disorder Bipolar disorder Disease Active 11-08 00:00: 00 Brennan Theodore Dementia Dementia Disease Active 2 00:00: 00 Brennan Theodore Memory loss Memory loss Disease Active 05-09 00:00: 00 Brennan Theodore Drug-induc ed tremor Drug-induc ed tremor Disease Active 10-13 00:00: 00 Brennan Theodore Tremor, essential Tremor, essential Disease Active 10-13 00:00: 00 Brennan Theodore Drug-induc ed parkinsoni sm Drug-induc ed parkinsoni sm Disease Active 05-12 00:00: 00 Brennan Theodore Oropharyng eal dysphagia Oropharyng eal dysphagia Disease Resolve d 05-11 00:00: 00 2024-08-02 00:00:00 2024-08-02 12:07:27 Brennan Theodore Hoarse voice quality Hoarse voice quality Disease Resolve d 01-15 00:00: 00 2024-08-02 00:00:00 2024-08-02 12:07:27 Brennan Theodore Throat pain Throat pain Disease Resolve d 01-15 00:00: 00 2024-08-02 00:00:00 2024-08-02 12:07:27 Brennan Theodore Allergies, Adverse Reactions, Alerts Allergy Name Allergy Type Status Severity Reaction(s) Onset Date Inactive Date Treating Clinician Comments Source NO KNOWN ALLERGIE S Drug Class Active [facility] Social History Social Habit Start Date Stop Date Quantity Comments Source Gender identity 2023-12-26 05:13:08 Identifies as male gender (finding) Anuj Pizanoann Ewelina Sexual orientation [facility] History of Social function 2025-05-17 00:00:00 2025-05-17 00:00:00 [facility] Alcoholic beverage intake 2025-05-02 00:00:00 2025-05-02 00:00:00 Lifetime non-drinker (finding) Anuj Pizanoann Ewelina Tobacco use and exposure 2025-02-13 00:00:00 2025-02-13 00:00:00 Smokeless tobacco non-user [facility] Sex 2023-12-26 05:13:08 2023-12-26 05:13:08 Male (finding) Anuj Pizanoann Ewelina Exposure to SARS-CoV-2 (event) 2023-02-22 00:00:00 2023-03-04 19:16:00 Not sure [facility] Sex assigned at 1950 00:00:00 1950 00:00:00 [facility] Smoking Status Start Date Stop Date Source Tobacco smoking consumption unknown [facility] Never smoked tobacco [facility] Medications Ordered Medication Name Filled Medication Name Start Date Stop Date Current Medication? Ordering Clinician Indication Dosage Frequency Signature (SIG) Comments Components Source atorvastati n (Lipitor) 10 MG tablet atorvastati n (Lipitor) 10 MG tablet 05-02 10:35: 08 Yes 10mg Take 10 mg by mouth at bedtime. Brennan Theodore iopamidol (ISOVUE 370-500 mL) injection 90 mL 03-11 21:30: 00 03-11 21:45 :00 No [id number] 90mL 90 mL, Intravenou s, ONCE, 1 dose, On 03/11/25 at 1645, Routine [facility] loratadine 10 mg tablet 02-13 11:20: 35 Yes 10mg Take 1 tablet by mouth in the morning. [facility] losartan 25 mg tablet 02-13 11:20: 35 Yes 25mg Take 1 tablet by mouth in the morning. [facility] memantine 10 mg tablet 02-13 11:20: 35 Yes 10mg Take 1 tablet by mouth. Taking two tabs in the am [facility] metformin ER 500 mg 24 hr tablet 02-13 11:20: 35 Yes 500mg Take 1 tablet by mouth daily with breakfast. [facility] neomycin 500 mg tablet 02-13 11:20: 35 Yes 500mg Take 1 tablet by mouth every 4 (four) hours. [facility] sennosides- docusate sodium 8.6-50 mg per tablet 02-13 11:20: 35 Yes 1{tbl} Take 1 tablet by mouth in the morning and 1 tablet in the evening. [facility] QUEtiapine 100 mg tablet 02-13 11:20: 35 Yes 100mg Take 1 tablet by mouth in the morning and 1 tablet in the evening. [facility] QUEtiapine (SEROQUEL) 200 mg tablet 02-13 11:20: 35 Yes 200mg Take 1 tablet by mouth in the morning and 1 tablet in the evening. [facility] traZODone 50 mg tablet 02-13 11:20: 35 Yes 50mg Take 1 tablet by mouth at bedtime. Half tab [facility] TRULICITY 3 mg/0.5 mL PnIj 02-13 11:20: 35 Yes 3mg inject 1 Pen under the skin daily before a meal. [facility] PLAVIX 75 mg tablet 02-13 11:20: 35 Yes Take by mouth daily. [facility] divalproex 500 mg delayed release tablet 02-13 11:20: 35 Yes 500mg Take 1 tablet by mouth in the morning and 1 tablet in the evening. [facility] DULoxetine 60 mg capsule 02-13 11:20: 35 Yes 60mg Take 1 capsule by mouth in the morning. 2 capsules at bedtime. [facility] ergocalcife rol, vitamin d2, 1,250 mcg (50,000 unit) capsule 02-13 11:20: 35 Yes 1.25ug Take 1.25 mcg by mouth weekly. [facility] amLODIPine 10 mg tablet 02-13 11:12: 28 Yes 10mg Take 1 tablet by mouth in the morning. [facility] aspirin 81 mg EC tablet 02-13 11:12: 28 Yes 81mg Take 1 tablet by mouth in the morning. [facility] atorvastati n 10 mg tablet 02-13 11:12: 28 Yes 10mg Take 1 tablet by mouth every evening. [facility] gabapentin 100 mg capsule 02-13 11:12: 28 Yes 100mg Take 1 capsule by mouth in the morning and 1 capsule at noon and 1 capsule in the evening. 2 capsules by mouth tid. [facility] QUEtiapine 50 mg tablet 02-06 00:00: 00 Yes 100mg Take 2 tablets by mouth in the morning and 2 tablets in the evening. [facility] acetaminoph en 325 mg tablet 01-19 00:00: 00 02-19 04:59 :00 No 325mg Take 1 tablet by mouth every 8 (eight) hours as needed. [facility] QUEtiapine 25 mg tablet 01-14 00:00: 00 Yes 25mg Take 1 tablet by mouth in the morning and 1 tablet in the evening. [facility] metFORMIN XR (Glucophage -XR) 500 MG 24 hr tablet metFORMIN XR (Glucophage -XR) 500 MG 24 hr tablet 18 00:00: 00 Yes 500mg QD Take 500 mg by mouth in the morning. Take with meals. Brennan Theodore losartan (Cozaar) 25 MG tablet losartan (Cozaar) 25 MG tablet 12-18 00:00: 00 Yes 25mg Take 25 mg by mouth every morning. Brennan Theodore traZODone (Desyrel) 50 MG tablet traZODone (Desyrel) 50 MG tablet 12-18 00:00: 00 Yes 50mg Take 50 mg by mouth. Brennan Theodore amLODIPine (Norvasc) 10 MG tablet amLODIPine (Norvasc) 10 MG tablet 12-18 00:00: 00 Yes 10mg Take 10 mg by mouth every morning. Brennan Theodore GLUCAGON EMERGENCY KIT, HUMAN, 1 mg injection 12-17 00:00: 00 Yes 1mg 1 mg by Intramuscu lar route once now. [facility] ergocalcife rol 1.25 MG (41565 UT) capsule ergocalcife rol 1.25 MG (39029 UT) capsule 2023-10 12:01: 42 Yes 1.25ug Take 1.25 mcg by mouth 1 time each week. Brennan Theodore zinc sulfate (Zincate) capsule zinc sulfate (Zincate) capsule 2023-10 12:01: 42 Yes 50mg{el emental 'zinc} QD Take 50 mg of elemental zinc by mouth 1 time each day. Brennan Theodore loratadine (Claritin) 5 MG chewable tablet loratadine (Claritin) 5 MG chewable tablet 2023-10 12:01: 42 Yes 5mg QD Chew 5 mg 1 time each day. Brennan Theodore insulin glargine (Lantus) 100 UNIT/ML injection insulin glargine (Lantus) 100 UNIT/ML injection 2023-10 12:01: 42 Yes Inject under the skin at bedtime. Brennan Theodore acetaminoph en (Tylenol) 325 MG tablet acetaminoph en (Tylenol) 325 MG tablet 2023-10 12:01: 42 Yes Take by mouth. Brennan Theodore guaiFENesin 200 MG/10ML liquid guaiFENesin 200 MG/10ML liquid 2023-10 12:01: 42 05-02 00:00 :00 No Take by mouth. Brennan Theodore famotidine (Pepcid) 20 MG tablet famotidine (Pepcid) 20 MG tablet 2023-10 0 00:00: 00 Yes 20mg QD Take 20 mg by mouth 1 time each day. Brennan Theodore rOPINIRole (Requip) 0.5 MG tablet rOPINIRole (Requip) 0.5 MG tablet 2023-10 00:00: 00 Yes .5mg Q.[id number] 3D Take 0.5 mg by mouth in the morning and 0.5 mg at noon and 0.5 mg in the evening. Brennan Theodore rOPINIRole 0.5 mg tablet 2023-10 00:00: 00 Yes .25mg Take 0.5 tablets by mouth in the morning and 0.5 tablets at noon and 0.5 tablets in the evening. [facility] PEPCID 20 mg tablet 2023-10 0 00:00: 00 Yes 20mg Take 1 tablet by mouth in the morning. [facility] LASIX 20 mg tablet 2023-10 0 00:00: 00 Yes 20mg Take 1 tablet by mouth in the morning. [facility] furosemide (Lasix) 20 MG tablet furosemide (Lasix) 20 MG tablet 2023-10 00:00: 00 05-02 00:00 :00 No 20mg QD Take 20 mg by mouth 1 time each day. Brennan Theodore rivastigmin e (Exelon) 6 MG capsule rivastigmin e (Exelon) 6 MG capsule 2023-10 0-11 00:00: 00 Yes 6mg Q.5D Take 6 mg by mouth in the morning and 6 mg in the evening. Brennan Theodore carbidopa-l evodopa (Sinemet) 25-100 MG tablet carbidopa-l evodopa (Sinemet) 25-100 MG tablet 2023-10 0 00:00: 00 Yes 2{tbl} Q6H Take 2 tablets by mouth in the morning and 2 tablets at noon and 2 tablets in the evening and 2 tablets before bedtime. Brennan Theodore carbidopa-l evodopa 25-100 mg tablet 2023-10 0- 00:00: 00 Yes 1{tbl} Take 1 tablet by mouth in the morning and 1 tablet at noon and 1 tablet in the evening. [facility] insulin lispro (HumaLOG) 100 UNIT/ML injection insulin lispro (HumaLOG) 100 UNIT/ML injection 07-02 00:00: 00 Yes Inject under the skin. Brennan Theodore fluticasone (Flonase) 50 MCG/ACT nasal spray fluticasone (Flonase) 50 MCG/ACT nasal spray 06-22 00:00: 00 Yes 1{spray } QD Administer 1 spray into each nostril 1 time each day. Brennan Theodore dicyclomine (Bentyl) 20 MG tablet dicyclomine (Bentyl) 20 MG tablet 11-11 00:00: 00 05-02 00:00 :00 No 20mg Q8H Take 20 mg by mouth in the morning and 20 mg at noon and 20 mg before bedtime. Brennan Theodore Docusate Sodium (DSS) 100 MG capsule Docusate Sodium (DSS) 100 MG capsule 06-04 00:00: 00 Yes 100mg 100 mg = 1 cap, PO, Daily, PRN Constipati on, # 20 cap, 0 Refill(s) Brennan Theodore iopamidol (ISOVUE 370-500 mL) injection 70 mL 03-05 07:00: 00 03-05 06:03 :00 No [id number] 70mL 70 mL, Intravenou s, ONCE, 1 dose, On [place] 03/05/23 at 0200, Routine [facility] NaCl 0.9% (NS) bolus infusion 1,000 mL 03-05 04:00: 00 03-05 04:27 :00 No 1000mL at 999 mL/hr, 1,000 mL, IV Infusion, ONCE, 1 dose, On Thu03/04/23 at 2300, STAT [facility] morpHINE (4 mg/mL) injection 4 mg 03-05 02:15: 00 03-05 02:05 :00 No 4mg 4 mg, Slow IV Push, ONCE, 1 dose, On Thu03/04/23 at 2115, STAT [facility] ondansetron (ZOFRAN (PF)) injection 4 mg 03-05 02:00: 00 03-05 02:05 :00 No 4mg 4 mg, Slow IV Push, ONCE, 1 dose, On Thu03/04/23 at 2115, DEONTE [facility] polyethylen e glycol 3350 (MIRALAX) 17 gram powder 03-05 00:00: 00 Yes [id number] 1{packe t} Take 1 Packet by mouth once daily as needed for Constipati on. [facility] docusate sodium 250 mg capsule 03-05 00:00: 00 Yes [id number] 250mg Take 1 capsule by mouth in the morning. [facility] dicyclomine 20 mg tablet 03-05 00:00: 00 Yes [id number] 20mg Take 1 tablet by mouth 4 (four) times daily. [facility] naproxen 500 mg tablet 03-05 00:00: 00 03-16 04:59 :00 No [id number] 500mg Take 1 tablet by mouth in the morning and 1 tablet in the evening. Take with meals. Do all this for 10 days. [facility] QUEtiapine (SEROquel) 50 MG tablet QUEtiapine (SEROquel) 50 MG tablet 01-16 00:00: 00 Yes 50mg 50 mg = 1 tab, PO, Daily, 0 Refill(s) Brennan Theodore pramipexole (Mirapex) 0.25 MG tablet pramipexole (Mirapex) 0.25 MG tablet 01-16 00:00: 00 05-02 00:00 :00 No .25mg 0.25 mg = 1 tab, PO, TID, # 90 tab, 0 Refill(s) [facility] QUEtiapine (SEROquel) 25 MG tablet QUEtiapine (SEROquel) 25 MG tablet 12-03 00:00: 00 Yes 25mg 25 mg = 1 tab, PO, TID, 0 Refill(s) Brennan Theodore busPIRone (Buspar) 5 MG tablet busPIRone (Buspar) 5 MG tablet 06-06 00:00: 00 05-02 00:00 :00 No 5mg 5 mg = 1 tab, PO, TID, # 90 tab, 0 Refill(s) Brennan Theodore aspirin 81 MG chewable tablet aspirin 81 MG chewable tablet 01-01 00:00: 00 Yes 81mg 81 mg = 1 tab, PO, Daily, tab, 0 Refill(s) Brennan Theodore insulin glargine (Basaglar KwikPen) 100 UNIT/ML pen insulin glargine (Basaglar KwikPen) 100 UNIT/ML pen 01-01 00:00: 00 Yes SUB-Q, Daily, 0 Refill(s) Brennan Theodore tadalafil (Cialis) 5 MG tablet tadalafil (Cialis) 5 MG tablet 01-01 00:00: 00 Yes 5mg 5 mg = 1 tab, PO, Daily, 0 Refill(s) Brennan Theodore DULoxetine (Cymbalta) [address] capsule DULoxetine (Cymbalta) [address] capsule 01-01 00:00: 00 Yes 60mg 60 mg = 1 cap, PO, Daily, # 90 cap, 0 Refill(s) Brennan Theodore divalproex (Depakote) 500 MG EC tablet divalproex (Depakote) 500 MG EC tablet 01-01 00:00: 00 Yes See Instructio ns, 2tab PO qam, 3 po qhs, 0 Refill(s) Brennan Theodore gabapentin (Neurontin) 100 MG capsule gabapentin (Neurontin) 100 MG capsule 01-01 00:00: 00 Yes 100mg 100 mg = 1 cap, PO, TID, # 90 cap, 1 Refill(s) Brennan Theodore memantine (Namenda) 10 MG tablet memantine (Namenda) 10 MG tablet 01-01 00:00: 00 Yes 10mg 10 mg = 1 tab, PO, BID, # 60 tab, 0 Refill(s) Brennan Theodore insulin aspart (NovoLOG) 100 units/mL injection insulin aspart (NovoLOG) 100 units/mL injection 01-01 00:00: 00 Yes SUB-Q, TID-Before Meals, 0 Refill(s) Brennan Theodore clopidogrel (Plavix) 75 MG tablet clopidogrel (Plavix) 75 MG tablet 01-01 00:00: 00 Yes 75mg 75 mg = 1 tab, PO, Daily, # 90 tab, 3 Refill(s) Brennan Theodore dulaglutide (Trulicity) 0.75 MG/0.5ML solution pen-injecto r dulaglutide (Trulicity) 0.75 MG/0.5ML solution pen-injecto r 01-01 00:00: 00 Yes .75mg 0.75 mg, SUB-Q, qWeek, 0 Refill(s) Brennan Theodore lactulose 20 gram/30 mL oral solution lactulose 20 gram/30 mL oral solution 01-01 00:00: 00 Yes 10g 10 g. Brennan Theodore casirivimab -imdevimab (REGEN-COV (EUA)) injection 1,200 mg 06-27 21:15: 00 06-27 19:59 :00 No [id number] 1200mg 1,200 mg, Subcutaneo us, ONCE, 1 dose, On Thu06/27/21 at 1615, Routine [facility] Vital Signs Vital Name Observation Time Observation Value Comments S ource Systolic blood pressure 2025-05-17 16:40:00 142 mm[Hg] [facility] Diastolic blood pressure 2025-05-17 16:40:00 61 mm[Hg] [facility] Heart rate 2025-05-17 16:40:00 79 /min [facility] Oxygen saturation in Arterial blood by Pulse oximetry 2025-05-17 16:40:00 100 /min [facility] Body height 2025-05-17 16:37:00 160 cm pt stated height [facility] Body weight 2025-05-17 16:37:00 83.19 kg pt stated weight [facility] BMI 2025-05-17 16:37:00 32.49 kg/m2 [facility] Systolic blood pressure 2025-05-02 10:40:00 88 mm[Hg] [facility] Diastolic blood pressure 2025-05-02 10:40:00 46 mm[Hg] [facility] Heart rate 2025-05-02 10:40:00 80 /min [facility] Body temperature 2025-05-02 10:40:00 36.61 Qiana [facility] Respiratory rate 2025-05-02 10:40:00 16 /min [facility] Body height 2025-05-02 10:40:00 157.5 cm [facility] Body weight 2025-05-02 10:40:00 84.369 kg [facility] BMI 2025-05-02 10:40:00 34.02 kg/m2 [facility] Oxygen saturation in Arterial blood by Pulse oximetry 2025-05-02 10:40:00 94 /min [facility] Systolic blood pressure 2025-05-02 10:40:00 88 mm[Hg] [facility] Diastolic blood pressure 2025-05-02 10:40:00 46 mm[Hg] [facility] Heart rate 2025-05-02 10:40:00 80 /min [facility] Body temperature 2025-05-02 10:40:00 36.61 Qiana [facility] Respiratory rate 2025-05-02 10:40:00 16 /min [facility] Body height 2025-05-02 10:40:00 157.5 cm [facility] Body weight 2025-05-02 10:40:00 84.369 kg [facility] BMI 2025-05-02 10:40:00 34.02 kg/m2 [facility] Oxygen saturation in Arterial blood by Pulse oximetry 2025-05-02 10:40:00 94 /min [facility] Systolic blood pressure 2025-03-11 23:52:00 122 mm[Hg] [facility] Diastolic blood pressure 2025-03-11 23:52:00 64 mm[Hg] [facility] Heart rate 2025-03-11 23:52:00 76 /min [facility] Body temperature 2025-03-11 23:52:00 36.72 Qiana [facility] Respiratory rate 2025-03-11 23:52:00 16 /min [facility] Oxygen saturation in Arterial blood by Pulse oximetry 2025-03-11 23:52:00 98 /min [facility] Body height 2025-03-11 19:22:00 154.9 cm [facility] Body weight 2025-03-11 19:22:00 85.276 kg [facility] BMI 2025-03-11 19:22:00 35.52 kg/m2 [facility] Systolic blood pressure 2025-03-09 18:59:00 124 mm[Hg] [facility] Diastolic blood pressure 2025-03-09 18:59:00 55 mm[Hg] [facility] Heart rate 2025-03-09 18:59:00 75 /min [facility] Body temperature 2025-03-09 18:59:00 36.61 Qiana [facility] Oxygen saturation in Arterial blood by Pulse oximetry 2025-03-09 18:59:00 100 /min [facility] Body height 2025-03-09 18:58:00 165.1 cm stated [facility] Body weight 2025-03-09 18:58:00 86.183 kg stated [facility] BMI 2025-03-09 18:58:00 31.62 kg/m2 [facility] Systolic blood pressure 2025-02-13 16:01:00 132 mm[Hg] [facility] Diastolic blood pressure 2025-02-13 16:01:00 65 mm[Hg] [facility] Heart rate 2025-02-13 16:01:00 79 /min [facility] Respiratory rate 2025-02-13 16:01:00 17 /min [facility] Body height 2025-02-13 16:01:00 162.6 cm [facility] Body weight 2025-02-13 16:01:00 83.371 kg [facility] BMI 2025-02-13 16:01:00 31.55 kg/m2 [facility] Oxygen saturation in Arterial blood by Pulse oximetry 2025-02-13 16:01:00 99 /min [facility] Systolic blood pressure 2024-08-02 12:05:00 173 mm[Hg] [facility] Diastolic blood pressure 2024-08-02 12:05:00 87 mm[Hg] [facility] Heart rate 2024-08-02 12:05:00 75 /min [facility] Body temperature 2024-08-02 12:05:00 36.22 Qiana [facility] Respiratory rate 2024-08-02 12:05:00 16 /min [facility] Body height 2024-08-02 12:05:00 154.9 cm [facility] Body weight 2024-08-02 12:05:00 90.084 kg [facility] BMI 2024-08-02 12:05:00 37.53 kg/m2 [facility] Oxygen saturation in Arterial blood by Pulse oximetry 2024-08-02 12:05:00 92 /min [facility] Systolic blood pressure 2024-08-02 12:05:00 173 mm[Hg] [facility] Diastolic blood pressure 2024-08-02 12:05:00 87 mm[Hg] [facility] Heart rate 2024-08-02 12:05:00 75 /min [facility] Body temperature 2024-08-02 12:05:00 36.22 Qiana [facility] Respiratory rate 2024-08-02 12:05:00 16 /min [facility] Body height 2024-08-02 12:05:00 154.9 cm [facility] Body weight 2024-08-02 12:05:00 90.084 kg [facility] BMI 2024-08-02 12:05:00 37.53 kg/m2 [facility] Oxygen saturation in Arterial blood by Pulse oximetry 2024-08-02 12:05:00 92 /min [facility] Systolic blood pressure 2023-03-05 06:22:00 131 mm[Hg] [facility] Diastolic blood pressure 2023-03-05 06:22:00 82 mm[Hg] [facility] Heart rate 2023-03-05 06:22:00 91 /min [facility] Respiratory rate 2023-03-05 06:22:00 18 /min [facility] Oxygen saturation in Arterial blood by Pulse oximetry 2023-03-05 06:22:00 97 /min [facility] Body temperature 2023-03-05 00:19:00 37.5 Qiana [facility] Body height 2023-03-05 00:19:00 162.6 cm [facility] Body weight 2023-03-05 00:19:00 92.08 kg [facility] BMI 2023-03-05 00:19:00 34.84 kg/m2 [facility] Systolic blood pressure 2021-06-27 20:46:00 149 mm[Hg] [facility] Diastolic blood pressure 2021-06-27 20:46:00 78 mm[Hg] [facility] Heart rate 2021-06-27 20:46:00 81 /min [facility] Body temperature 2021-06-27 20:46:00 36 Qiana [facility] [facility] Respiratory rate 2021-06-27 20:46:00 18 /min [facility] Oxygen saturation in Arterial blood by Pulse oximetry 2021-06-27 20:46:00 95 /min [facility] Body height 2021-06-27 19:56:00 160 cm [facility] Body weight 2021-06-27 19:56:00 87.544 kg [facility] BMI 2021-06-27 19:56:00 34.19 kg/m2 [facility] Procedures Procedure Date / Time Performed Performing Clinician Source CT ABDOMEN PELVIS W CONTRAST 2025-03-11 21:34:49 Emelia Moura [facility] URINALYSIS 2025-03-11 21:03:00 Emelia Moura [facility] LIPASE 2025-03-11 20:45:00 Emelia Moura [facility] MAGNESIUM 2025-03-11 20:45:00 Emelia Moura [facility] COMP. METABOLIC PANEL ([id number]) 2025-03-11 20:45:00 Emelia Moura [facility] CBC WITH DIFF 2025-03-11 20:45:00 Emelia Moura [facility] PROTHROMBIN TIME / INR 2025-03-11 20:45:00 Emelia Moura [facility] ACTIVATED PARTIAL THRMPLAS GABRIELLE 2025-03-11 20:45:00 Emelia Moura [facility] VENOUS REFLUX DUPLEX BILATERAL - BY VASCULAR LAB 2025-03-06 15:40:01 [facility] TRANSTHORACIC ECHO (TTE) COMPLETE 2025-03-06 14:54:[address] [facility] [address] CHEST PULMONARY ANGIOGRAM 2023-03-05 06:01:00 Tiffanie Cox [facility] LACTIC ACID WHOLE BLOOD 2023-03-05 04:36:00 Do sangeetha Cox [facility] URINALYSIS 2023-03-05 02:26:00 Tiffanie Cox [facility] ASSIGNMENT OF BENEFITS 2023-03-05 02:01:19 Docto r Unassigned, [facility] CT ABDOMEN PELVIS WO CONTRAST 2023-03-05 01:54:00 Tiffanie Cox [facility] CT THORAX WO CONTRAST 2023-03-05 01:54:00 Thad Cox [facility] LACTIC ACID WHOLE BLOOD 2023-03-05 01:20:00 Do sangeetha Cox [facility] LIPASE 2023-03-05 01:19:00 [facility] TROPONIN I 2023-03-05 01:19:00 Tiffanie Cox [facility] COMP. METABOLIC PANEL ([id number]) 2023-03-05 01:19:00 Tiffanie Cox [facility] CBC WITH DIFF 2023-03-05 01:19:00 Tiffanie Cox [facility] PROTHROMBIN TIME / INR 2023-03-05 01:19:00 Hubert Cox [facility] ACTIVATED PARTIAL THRMPLAS GABRIELLE 2023-03-05 01:19:00 Tiffanie Cox [facility] N-TERMINAL PRO-BNP 2023-03-05 01:19:00 Tiffnaie Cox [facility] CONSENT/REFUSAL FOR DIAGNOSIS AND TREATMENT 2023-03-05 00:08:58 Doctor Unassigned, [facility] CONSENT/REFUSAL FOR DIAGNOSIS AND TREATMENT 2021-06-27 05:01:00 Doctor Unassigned, [facility] Encounters Start Date/Time End Date/Time Encounter Type Admission Type Attending [facility] Care Department Encounter ID Source 2025-05-17 11:20:00 2025-05-17 11:50:40 [facility] 1.2.840.114 350.1.13.10 4.2.7.2.686 [id number] General acute hospital 2025-05-02 10:27:05 2025-05-02 11:03:06 Outpatient [id number] 2025-05-02 10:30:00 2025-05-02 10:45:00 Office Visit Mona Tovar 1.2.840.114 350.1.13.70 8.2.7.2.686 [id number] Brennan bustamante [facility] 2025-03-06 00:00:00 2025-04-08 18:24:30 Patient Secure Msg Renato Hernandezbyronjensen [facility] 1.2.840.114 350.1.13.10 4.2.7.2.686 [id number] General acute hospital 2025-02-15 00:00:00 2025-03-18 18:16:53 Patient Secure Msg [facility] 1.2.840.114 350.1.13.10 4.2.7.2.686 [id number] General acute hospital 2025-03-11 14:23:00 2025-03-11 18:54:00 Emergency X Emelia MOURA K [facility] ERT [id number] General acute hospital 2025-03-09 14:00:00 2025-03-09 15:00:53 Office Visit FABRICIO POE [facility] 1.2.840.114 350.1.13.10 4.2.7.2.686 [id number] General acute hospital 2025-03-06 09:00:42 2025-03-06 23:59:00 Hospital Encounter R [facility]ID [facility] 1.2.840.114 350.1.13.10 4.2.7.2.686 [id number] General acute hospital 2025-03-06 10:00:00 2025-03-06 10:00:00 Outpatient Bob DAVID [facility] [id number] General acute hospital 2025-03-06 09:00:00 2025-03-06 09:00:00 Hospital Encounter R DAVID [facility] BU[facility] 1.2.840.114 350.1.13.10 4.2.7.2.686 [id number] General acute hospital 2025-02-17 00:00:00 2025-02-17 11:43:26 Telephone David [facility] BUILDING 1.2.840.114 350.1.13.10 4.2.7.2.686 [id number] General acute hospital 2025-02-14 00:00:00 2025-02-14 10:28:01 Telephone David [facility] BUILDING 1.2.840.114 350.1.13.10 4.2.7.2.686 [id number] General acute hospital 2025-02-13 10:40:00 2025-02-13 11:27:25 [id number] acute hospital 2025-02-13 10:40:00 2025-02-13 11:27:25 [facility] 1.2.840.114 350.1.13.10 4.2.7.2.686 [id number] General acute hospital 2024-08-02 11:45:00 2024-08-02 12:20:56 Office Visit Mona Tovaroria 1.2.840.114 350.1.13.70 8.2.7.2.686 [id number] Brennan Matamoros [facility] 2024-08-02 11:44:27 2024-08-02 12:20:56 Outpatient Elective [facility] [id number] [facility] 2023-03-04 19:22:00 2023-03-05 02:31:00 Emergency X HUBERT COXNELL [facility] ERT [id number] General acute hospital 2023-03-04 19:22:00 2023-03-05 02:31:00 Emergency Tiffanie Cox [facility] 1.2840.114 350.1.13.10 4.2.7.2.686 [id number] General acute hospital 2021-06-27 15:30:00 2021-06-27 15:30:00 Outpatient NICOLAS FUENTES [facility] [id number] General acute hospital 2021-06-27 13:22:04 2021-06-27 14:22:04 Nurse Visit Therapy, Adc Nicolas Byrd [facility] [place] 1.2.840.114 350.1.13.10 4.2.7.2.686 [id number] General acute hospital 2021-06-27 00:00:00 2021-06-27 00:00:00 Orders Only Doctor Unassigned, [facility] 1.2.840.114 350.1.13.10 4.2.7.2.686 [id number] General acute hospital Results Test Description Test Time Test Comments Results Result Comments Source CT Abdomen pelvis w contrast 22:22:09 EXAM: CT ABDOMEN PELVIS W CONTRAST HISTORY: 74 years-old Male; abdominal trauma due to fall. TECHNIQUE: Contiguous axial imaging from the level of the lung basesthrough the proximal thighs was performed with intravenous contrast.Coronal and sagittal reconstructions were obtained. COMPARISON: 03/04/2023 FINDINGS: The study is mildly degraded due to motion artifact. LOWER THORAX: The lung bases are clear apart from dependent, bibasilaratelectasis. Mild coronary atherosclerotic calcifications are seen. LIVER: The liver is normal in size and contour. No focal hepatic lesion isseen. GALLBLADDER AND BILIARY TREE: The gallbladder is contracted, withapparently thick parker and surrounding fat stranding which are likelysecondary to motion artifact. No radiopaque gallstones are seen. No intraor extrahepatic biliary ductal dilation is visualized. SPLEEN: The spleen appears unremarkable. PANCREAS: No ductal dilation or masses are visualized. Pancreaticparenchymal calcifications are present. ADRENAL GLANDS: No adrenal masses are seen. KIDNEYS: A 1.8 cm hypodense simple cyst is redemonstrated in the rightrenal midpole. Smaller hypodense lesions are seen in the right kidney, toosmall to characterize. Suspected punctate bilateral nephrolithiasis. PELVIS/BLADDER: The bladder is partially collapsed, which limitsevaluation. The reproductive organs are unremarkable. GI TRACT: No dilation or bowel wall thickening is seen. Moderate colonicstool burden is noted. Fluid density is seen in the ascending colon, whichcan be seen in the setting of diarrheal illness. The appendix appearsunremarkable. PERITONEUM AND RETROPERITONEUM: No intra-abdominal free air or fluidcollection is visualized. LYMPH NODES: No enlarged intra-abdominal or pelvic lymph nodes are found. VESSELS: The vessels appear unremarkable. BONES AND SOFT TISSUES: Extensive skin thickening and fat stranding areseen along the right abdominal wall/flank with multiple hyperdensecollections overlying the abdominal wall muscles, which likely representhematomas. Bilateral gynecomastia is noted. Compression deformity of the L4 vertebral body is again seen withapproximately 50% preservative height loss, similar to the prior study from03/04/2023. Moderate degenerative changes of the thoracic and lumbar spinesare noted. [facility] Notes Date/Time Note Provider Source 2025-05-02 11:02:44 [facility] Saturnino [facility] [id number] 11:02:44* Mona Tovar MD - 05/02/2025 10:30 AM CDT History of Present Illness Parkinson's Disease The patient is a 74-year-old male with a history of Parkinson's disease, presenting for follow-up. He is accompanied by his , who provides additional history. The patient reports persistent pain in his neck, arms, and knees, describing it as a constant ache. He also notes significant pain in his feet, which he describes as "hurting so bad." He does not endorse any specific triggers or alleviating factors for the pain. He continues to use a walker for mobility and reports frequent falls, including one last week that resulted in a minor cut. His notes that his walking speed has decreased, and he is "slowing down more." He is currently taking carbidopa-levodopa four times daily and Depakote formood stabilization. He mentions that his medication regimen has been reduced, which he views positively, but notes that he still takes a significant number of medications, particularly in the morning and afternoon. Past Diagnostic Results:Labs - (Recent) Ammonia: Elevated. Allergies as of 05/02/2025(No Known Allergies) has a current medication list which includes the following prescription(s): acetaminophen, amlodipine, aspirin, atorvastatin, carbidopa-levodopa, clopidogrel, divalproex, dss, trulicity, duloxetine, ergocalciferol, famotidine, fluticasone, gabapentin, insulin aspart, basaglar kwikpen, insulin glargine, insulin lispro, lactulose, loratadine, losartan, memantine, metformin xr, quetiapine, quetiapine, rivastigmine, ropinirole, tadalafil, trazodone, and zinc sulfate. Musculoskeletal: (+) neck pain, (+) bilateral arm pain, (+) bilateral kneepain, (+) foot pain Neurological: (+) falls, (+) gait slowness Vitals:05/02/25 1040 BP: (!) 88/46 Pulse: 80 Resp: 16 Temp: 36.6 ?C (97.9 ?F) SpO2: 94% Neurological Exam Mental Status Awake and alert. Speech is normal. Cranial NervesCN II: Visual acuity is normal. CN III, IV, : Extraocular movements intact bilaterally. Pupils equal round and reactive to light bilaterally. CN VII: Full and symmetric facial movement. CN XII: Tongue midline without atrophy or fasciculations. Slight masking. MotorStrength is 5/5 throughout all four extremities. Moderate cogwheeling and bradykinesia, tremor L>R. SensoryLight touch is normal in upper and lower extremities. Temperature is normal in upper and lower extremities. Vibration is normal in upper and lower extremities. ReflexesDeep tendon reflexes: Symmetric. Gait Ambulates with a rolling walker. No results found for this or any previous visit. No MRI head results found for the past 12 months Assessment & Plan# Parkinson's disease without dyskinesia, with fluctuating manifestations (HCC) (G20.A2) - Condition is stable on current regimen of carbidopa-levodopa 4 times daily. - Continue current medication regimen. - Educated on the progressive nature of Parkinson's disease and its impact on gait and mobility. - Follow-up in 6-9 months. [facility]2025-07-29 11:02:44Upcoming Encounters Health Maintenance Due Date Last Done Comments CT Colonography 1951 Colonoscopy 1951 Colorectal Cancer Screening 1951 Diabetes: Hemoglobin A1C 1951 FIT-DNA 1951 FIT 1951 FOBT 1951 Lipid Panel 1951 Medicare Annual Wellness (AWV) 1951 Sigmoidoscopy 1951 Diabetes: Foot Exam 1961 Diabetes: Retinopathy Screening 1961 DTaP/Tdap/Td Vaccines (1 - Tdap) 1970 Diabetes: Urine Protein Screening 1970 Zoster Vaccines (1 of 2) 2001 Respiratory Syncytial Virus (RSV) Adult Series (1 - Risk 60-74 years 1-dose series) 2011 Pneumococcal Vaccine: 50+ Ye ars (2 of 2 - PCV) 03/08/2020 03/08/2019 Influenza Vaccine (#1) 2025 HIB Vaccines Aged Out No longer eligi ble based on patient's age to complete this topic HPV Vaccines Aged Out No longer eligi ble based on patient's age to complete this topic Hepatitis A Vaccines Aged Out No long er eligible based on patient's age to complete this topic Hepatitis B Vaccines Aged Out No long er eligible based on patient's age to complete this topic IPV Vaccines Aged Out No longer eligi ble based on patient's age to complete this topic Meningococcal Vaccine Aged Out No jayme galilea eligible based on patient's age to complete this topic Rotavirus Vaccines Aged Out No longer eligible based on patient's age to complete this topic [id number] 11:02:44 Diagnosis Parkinson's disease without dyskinesia, with fluctuating manifestations (HCC) - Primary [id number] 11:02:44 [id number] 11:02:43* [facility]enVbbxkrn7864-70-07 11:02:43 [facility]enYqprwla2796-90-35 11:02:43* Mona Tovar MD - 05/02/2025 10:30 AM CDT History of Present Illness Parkinson's Disease The patient is a 74-year-old male with a history of Parkinson's disease, presenting for follow-up. He is accompanied by his , who provides additional history. The patient reports persistent pain in his neck, arms, and knees, describing it as a constant ache. He also notes significant pain in his feet, which he describes as "hurting so bad." He does not endorse any specific triggers or alleviating factors for the pain. He continues to use a walker for mobility and reports frequent falls, including one last week that resulted in a minor cut. His notes that his walking speed has decreased, and he is "slowing down more." He is currently taking carbidopa-levodopa four times daily and Depakote formood stabilization. He mentions that his medication regimen has been reduced, which he views positively, but notes that he still takes a significant number of medications, particularly in the morning and afternoon. Past Diagnostic Results:Labs - (Recent) Ammonia: Elevated. Allergies as of 05/02/2025(No Known Allergies) has a current medication list which includes the following prescription(s): acetaminophen, amlodipine, aspirin, atorvastatin, carbidopa-levodopa, clopidogrel, divalproex, dss, trulicity, duloxetine, ergocalciferol, famotidine, fluticasone, gabapentin, insulin aspart, basaglar kwikpen, insulin glargine, insulin lispro, lactulose, loratadine, losartan, memantine, metformin xr, quetiapine, quetiapine, rivastigmine, ropinirole, tadalafil, trazodone, and zinc sulfate. Musculoskeletal: (+) neck pain, (+) bilateral arm pain, (+) bilateral kneepain, (+) foot pain Neurological: (+) falls, (+) gait slowness Vitals:05/02/25 1040 BP: (!) 88/46 Pulse: 80 Resp: 16 Temp: 36.6 ?C (97.9 ?F) SpO2: 94% Neurological Exam Mental Status Awake and alert. Speech is normal. Cranial NervesCN II: Visual acuity is normal. CN III, IV, : Extraocular movements intact bilaterally. Pupils equal round and reactive to light bilaterally. CN VII: Full and symmetric facial movement. CN XII: Tongue midline without atrophy or fasciculations. Slight masking. MotorStrength is 5/5 throughout all four extremities. Moderate cogwheeling and bradykinesia, tremor L>R. SensoryLight touch is normal in upper and lower extremities. Temperature is normal in upper and lower extremities. Vibration is normal in upper and lower extremities. ReflexesDeep tendon reflexes: Symmetric. Gait Ambulates with a rolling walker. No results found for this or any previous visit. No MRI head results found for the past 12 months Assessment & Plan# Parkinson's disease without dyskinesia, with fluctuating manifestations (HCC) (G20.A2) - Condition is stable on current regimen of carbidopa-levodopa 4 times daily. - Continue current medication regimen. - Educated on the progressive nature of Parkinson's disease and its impact on gait and mobility. - Follow-up in 6-9 months. [facility]allenZontkpm1437-36-84 11:02:43Upcoming Encounters Health Maintenance Due Date Last Done Comments CT Colonography 1951 Colonoscopy 1951 Colorectal Cancer Screening 1951 Diabetes: Hemoglobin A1C 1951 FIT-DNA 1951 FIT 1951 FOBT 1951 Lipid Panel 1951 Medicare Annual Wellness (AWV) 1951 Sigmoidoscopy 1951 Diabetes: Foot Exam 1961 Diabetes: Retinopathy Screening 1961 DTaP/Tdap/Td Vaccines (1 - Tdap) 1970 Diabetes: Urine Protein Screening 1970 Zoster Vaccines (1 of 2) 2001 Respiratory Syncytial Virus (RSV) Adult Series (1 - Risk 60-74 years 1-dose series) 2011 Pneumococcal Vaccine: 50+ Ye ars (2 of 2 - PCV) 03/08/2020 03/08/2019 Influenza Vaccine (#1) 2025 HIB Vaccines Aged Out No longer eligi ble based on patient's age to complete this topic HPV Vaccines Aged Out No longer eligi ble based on patient's age to complete this topic Hepatitis A Vaccines Aged Out No long er eligible based on patient's age to complete this topic Hepatitis B Vaccines Aged Out No long er eligible based on patient's age to complete this topic IPV Vaccines Aged Out No longer eligi ble based on patient's age to complete this topic Meningococcal Vaccine Aged Out No jayme galilea eligible based on patient's age to complete this topic Rotavirus Vaccines Aged Out No longer eligible based on patient's age to complete this topic [id number] 11:02:43 Diagnosis Parkinson's disease without dyskinesia, with fluctuating manifestations (HCC) - [facility] McallenMilbnhj0809-23-01 11:02:43 [place] [id number] 18:53:48 Pt given printed and verbal discharge instructions regarding aftercare instructions, dehydration, encouraged hydration, 0 Prescriptions provided Pt verbalized understanding of instructions, pt awake alert oriented, resp reg unlabored, skin w/d, color appropriate for race, moves all ext well,pt encouraged to follow up with pcp. Advised to seek medical attention for new/prolonged/worsening of symptoms, Symptoms improved. No PIV @ d'cd Awake, alert oriented, resp reg unlabored, skin w/d, pt leaving amb with steady gait, in no apparent distress, Cathleen Schneider [facility]rePgxlas7990-96-71 14:20:06 states: "He's at a fdc. They said he fell last weeks. He's starting to hurt more and he has bruises on his abd" Reports RLQ pain, noted large bruises. Shilpa Leung [facility] [id number] 11:31:31 Called to inform patient of results and recommendations as detailed below. Spoke with Patient's , Zaina who verbalized understanding. Called [facility] to provide this information per patient's , Zaina. Micaela Mckeon [facility] CAreEchoag5892-13-63 11:27:08 ----- Message from Riya Hernandez sent at 02/13/2025 12:18 PM CDT ----- I reviewed his hospital record. CT angiogram showed 90% carotid artery stenosis. Please make appointment with [facility] vascular [facility]. [facility]Kgecxk4882-97-66 10:27:16 Fax received from [facility] with external medical records. Placed in folder for review. [place] [id number] 10:40:00 Addended by: RIYA HERNANDEZ MD on: 02/13/2025 12:18 PM Modules accepted: Orders [facility]Pndfbm8183-31-79 12:21:05* [facility]enCwdswpu7060-16-89 12:21:05 [facility]enFpasdks0653-19-03 12:21:05* Mona Tovar MD - 08/02/2024 11:45 AM CDT History of Present Illness HPI Stable, a few falls. On Sinemet and Requip. Tremor is better. Still needs a rolling walker to ambulate safely. No new problems otherwise. Allergies as of 08/02/2024 (No Known Allergies) has a current medication list which includes the following prescription(s): acetaminophen, aspirin, buspirone, carbidopa-levodopa, clopidogrel, dicyclomine, divalproex, dss, trulicity, duloxetine, ergocalciferol, famotidine, fluticasone, furosemide, gabapentin, guaifenesin, insulin aspart, basaglar kwikpen, insulin glargine, insulin lispro, lactulose, loratadine, memantine, pramipexole, quetiapine, quetiapine, rivastigmine, ropinirole, tadalafil, and zinc sulfate. Vitals:08/02/24 1205 BP: 173/87 Pulse: 75 Resp: 16 Temp: 36.2 ?C (97.2 ?F) SpO2: 92% Neurological Exam Mental Status Awake and alert. Speech is normal. Cranial NervesCN II: Visual acuity is normal. CN III, IV, : Extraocular movements intact bilaterally. Pupils equal round and reactive to light bilaterally. CN VII: Full and symmetric facial movement. CN XII: Tongue midline without atrophy or fasciculations. Slight masking. MotorStrength is 5/5 throughout all four extremities. Moderate cogwheeling and bradykinesia. SensoryLight touch is normal in upper and lower extremities. Temperature is normal in upper and lower extremities. Vibration is normal in upper and lower extremities. ReflexesDeep tendon reflexes: Symmetric. Gait Ambulates with a rolling walker. No results found for this or any previous visit. No MRI head results found for the past 12 months Assessment & PlanDiagnoses and all orders for this visit: Parkinson's disease without dyskinesia, with fluctuating manifestations (HCC) Stable, continue present medications. [facility] DallasLwukcct2692-57-50 12:21:05Upcoming Encounters Health Maintenance Due Date Last Done Comments CT Colonography 1951 Colonoscopy 1951 Colorectal Cancer Screening 1951 Diabetes: Hemoglobin A1C 1951 FIT-DNA 1951 FIT 1951 FOBT 1951 Lipid Panel 1951 Medicare Annual Wellness (AWV) 1951 Sigmoidoscopy 1951 Pneumococcal Vaccine: 65+ Ye ars (1 of 2 - PCV) 1957 Diabetes: Foot Exam 1961 Diabetes: Retinopathy Screening 1961 DTaP/Tdap/Td Vaccines (1 - Tdap) 1970 Diabetes: Urine Protein Screening 1970 Zoster Vaccines (1 of 2) 2001 Respiratory Syncytial Virus (RSV) or >=60 (1 - 1-dose 60+ series) 2011 Influenza Vaccine (#1) 2024 HIB Vaccines Aged Out No longer eligi ble based on patient's age to complete this topic HPV Vaccines Aged Out No longer eligi ble based on patient's age to complete this topic Hepatitis A Vaccines Aged Out No long er eligible based on patient's age to complete this topic Hepatitis B Vaccines Aged Out No long er eligible based on patient's age to complete this topic IPV Vaccines Aged Out No longer eligi ble based on patient's age to complete this topic Meningococcal Vaccine Aged Out No jayme galilea eligible based on patient's age to complete this topic Rotavirus Vaccines Aged Out No longer eligible based on patient's age to complete this topic [facility] [id number] 12:21:05 Diagnosis Parkinson's disease without dyskinesia, with fluctuating manifestations (HCC) - Primary [facility] DallasRmcmoeo2520-10-24 12:21:05 Anuj Matamoros
--- NOTE | 2025-07-11 13:45 | RAD REPORT ---
EXAM: CT brain without contrast HISTORY: TRAUMA COMPARISON: 12/17/2024 and 06/04/2022 TECHNIQUE: Multiple contiguous axial images were obtained and a CT of the brain without contrast. Sag ittal and coronal reformats were performed. FINDINGS: No evidence of hydrocephalus, intracranial hemorrhage, or extra-axial fluid collection. Moderate brain atrophy with moderate periventricular and deep white matter chronic microvascular isc hemic changes present. The calvarium is intact. Mucus retention cysts within the maxillary sinuses. Mastoid air cells are es sentially clear. IMPRESSION: No evidence of acute intracranial abnormality. EXAM: CT of the cervical spine without contrast HISTORY: TRAUMA COMPARISON: None TECHNIQUE: Multiple contiguous axial images were obtained in a CT of the cervical spine without contr ast. Sagittal and coronal reformats were performed. FINDINGS: The vertebral bodies demonstrate normal height and alignment. No evidence of acute fracture or subluxation.. Moderate degenerative changes are present, contributing to variable degrees of neural foraminal narrowing, most pronounced at C5-6 on the right. No prevertebral soft tissue swelli ng is seen. The posterior facets are well aligned. Normal alignment of the skull base with the cervical spine is seen. The lung apices are unremarkable. IMPRESSION: No evidence of acute osseous abnormality of the cervical spine. Degenerative changes as above.
--- NOTE | 2025-07-11 14:28 | EDPHYS ---
Physician Documentation [facility] Name: Geraldo Solis Age: 75 yrs Sex: Male : 1950 Arrival Date: 07/11/2025 Time: 13:21 Bed 7 Private MD: ED Physician Ryan Mohan HPI: 07/11 13:43 This 75 yrs old Male presents to ER via EMS with complaints of Fall Injury. sp3 13:43 75-year-old male with history of bipolar disease, dementia, diabetes, hypertension, sp3 Parkinson's, schizophrenia now presents to ED via EMS for mechanical fall at residential. Patient was found with his back and head on the ground with his legs still up in the bed. Probable head injury noted. Patient complains of no pain anywhere. He states he did not hit his head. Review of systems negative for headache, fever, neck pain, cough, congestion, sinus pressure, ear pain, neck pain, lymph node swelling, chest pain, shortness of breath, upper back pain, mid back pain, lower back pain, flank pain, abdominal pain, nausea, vomiting, diarrhea, rash, syncope, near syncope, known sick contacts, travel history, trauma, or any other signs or symptoms on ROS at this time.. Historical: - Allergies: 13:23 No Known Allergies; bp - PMHx: 13:23 Bipolar disorder; constipation; Dementia; Diabetes - NIDDM; Hypertension; Parkinsons; bp Schizophrenia; - Immunization history:: Adult Immunizations up to date. - Infectious Disease History:: Denies. - Social history:: Smoking status: unknown. ROS: 13:45 Constitutional: Negative for fever, chills, and weight loss, Eyes: Negative for injury, sp3 pain, redness, and discharge, ENT: Negative for injury, pain, and discharge, Neck: Negative for injury, pain, and swelling, Cardiovascular: Negative for chest pain, palpitations, and edema, Respiratory: Negative for shortness of breath, cough, wheezing, and pleuritic chest pain, Abdomen/GI: Negative for abdominal pain, nausea, vomiting, diarrhea, and constipation, Back: Negative for injury and pain, MS/Extremity: Negative for injury and deformity, Skin: Negative for injury, rash, and discoloration, Psych: Negative for depression, anxiety, suicide ideation, homicidal ideation, and hallucinations, Allergy/Immunology: Negative for hives, rash, and allergies, 13:45 All other systems are negative, Exam: 14:21 Constitutional: This is a well developed, well nourished patient who is awake, alert, sp3 and in no acute distress. Head/Face: Normocephalic, atraumatic. Eyes: Pupils equal round and reactive to light, extra-ocular motions intact. Lids and lashes normal. Conjunctiva and sclera are non-icteric and not injected. Cornea within normal limits. Periorbital areas with no swelling, redness, or edema. ENT: Nares patent. No nasal discharge, no septal abnormalities noted. External auditory canals are clear. Oropharynx with no redness, swelling, or masses, exudates, or evidence of obstruction, uvula midline. Mucous membranes moist. Neck: Trachea midline, no thyromegaly or masses palpated, and no cervical lymphadenopathy. Supple, full range of motion without nuchal rigidity, or vertebral point tenderness. No Meningismus. Chest/axilla: Normal chest wall appearance and motion. Nontender with no deformity. No lesions are appreciated. Cardiovascular: Regular rate and rhythm with a normal S1 and S2. No gallops, murmurs, or rubs. Normal PMI, no JVD. No pulse deficits. Respiratory: Lungs have equal breath sounds bilaterally, clear to auscultation and percussion. No rales, rhonchi or wheezes noted. No increased work of breathing, no retractions or nasal flaring. Abdomen/GI: Soft, non-tender, with normal bowel sounds. No distension or tympany. No guarding or rebound. No evidence of tenderness throughout. Back: No spinal tenderness. No costovertebral tenderness. Full range of motion. Skin: Warm, dry with normal turgor. Normal color with no rashes, no lesions, and no evidence of cellulitis. MS/ Extremity: Pulses equal, no cyanosis. Neurovascular intact. Full, normal range of motion. Psych: Awake, alert, with orientation to person, place and time. Behavior, mood, and affect are within normal limits. Vital Signs: 13:22 BP 137 / 67; Pulse 84; Resp 16; Temp 98; Pulse Ox 98% ; bp 15:44 BP 127 / 71; Pulse 79; Resp 16; Pulse Ox 98% ; bp 17:31 BP 131 / 69; Pulse 75; Resp 16; Pulse Ox 98% ; bp MDM: 13:22 Medical Screening Exam initiated sp3 14:22 Data reviewed: vital signs, nurses notes, radiologic studies. ED course: No injuries sp3 found on exam. Differential diagnosis includes head injury versus intracranial hemorrhage versus other injury. CT scan of the head and C-spine are negative. Will safely discharge patient back to residential.. 07/11 13:23 Order name: CT Head C Spine; Complete Time: 14:21 sp3 Administered Medications: No medications were administered Disposition Summary: 07/11/25 14:28 Discharge Ordered Notes: Location: Home sp3 Condition: Stable sp3 Diagnosis - Mechanical fall, closed head injury sp3 Followup: sp3 - With: Private Physician - When: Upon discharge from the Emergency Department - Reason: Recheck today's complaints Discharge Instructions: - Discharge Summary Sheet sp3 - Fall Prevention in the Home, Adult sp3 Forms: - Medication Reconciliation Form sp3 - Antibiotic Education sp3 - Prescription Opioid Use sp3 - Patient Portal Instructions sp3 - Leadership Thank You Letter sp3 Signatures: Dispatcher [employer] Scottie Bañuelos, YEYO RN Ryan Hilton MD MD sp3
--- NOTE | 2025-07-11 14:28 | ER ---
Nurse's Notes [facility] Name: Geraldo Solis Age: 75 yrs Sex: Male : 1950 Arrival Date: 07/11/2025 Time: 13:21 Bed 7 Private MD: Diagnosis: Mechanical fall, closed head injury Presentation: 07/11 13:22 Chief complaint: EMS states: [place]WIT[place]. Coronavirus screen: At bp this time, the client does not indicate any symptoms associated with coronavirus-19. Ebola Screen: No symptoms or risks identified at this time. Initial Sepsis Screen: Does the patient meet any 2 criteria? No. Patient's initial sepsis screen is negative. Does the patient have a suspected source of infection? No. Patient's initial sepsis screen is negative. Risk Assessment: Do you want to hurt yourself or someone else? Patient reports no desire to harm self or others. Onset of symptoms was July 11, 2025. Care prior to arrival: Glucose check: 114. 13:22 Method Of Arrival: EMS: [facility] bp 13:22 Acuity: MARKO 3 bp Triage Assessment: 13:30 General: Appears in no apparent distress. Behavior is calm, cooperative. Pain: Denies bp pain. EENT: No deficits noted. Neuro: AT BASELINE. Cardiovascular: No deficits noted. Respiratory: No deficits noted. GI: No signs and/or symptoms were reported involving the gastrointestinal system. : No signs and/or symptoms were reported regarding the genitourinary system. Derm: No deficits noted. Musculoskeletal: No deficits noted. Historical: - Allergies: 13:23 No Known Allergies; bp - PMHx: 13:23 Bipolar disorder; constipation; Dementia; Diabetes - NIDDM; Hypertension; Parkinsons; bp Schizophrenia; - Immunization history:: Adult Immunizations up to date. - Infectious Disease History:: Denies. - Social history:: Smoking status: unknown. Screenin:[facility] ED Fall Risk Assessment (Adult) History of falling in the last 3 months, dd2 including since admission Yes- single mechanical fall (1 pt) Confusion or Disorientation Yes (5 pts) Intoxicated or Sedated No (0 pts) Impaired Gait Yes (1 pt) Mobility Assist Device Used Yes (1 pt) Altered Elimination Yes (1 pt) Score/Fall Risk Level 3 or more points = High Risk Oriented to surroundings, Maintained a safe environment, Educated pt \T\ family on fall prevention, incl call for assistance when getting out of bed, Assessed \T\ reinforced patient's understanding of fall precautions, Hourly rounding (assess needs \T\ fall precautionary measures) done, Used ambulatory aids as needed (educated on \T\ assisted with). Abuse screen: Denies threats or abuse. Denies injuries from another. Nutritional screening: No deficits noted. Tuberculosis screening: No symptoms or risk factors identified. Assessment: 13:30 General: SEE TRIAGE NOTE. bp 15:42 Reassessment: [facility] CONTACTED FOR TRANSPORT. bp Vital Signs: 13:22 BP 137 / 67; Pulse 84; Resp 16; Temp 98; Pulse Ox 98% ; bp 15:44 BP 127 / 71; Pulse 79; Resp 16; Pulse Ox 98% ; bp 17:31 BP 131 / 69; Pulse 75; Resp 16; Pulse Ox 98% ; bp ED Course: 13:22 Patient arrived in ED. bp 13:22 Ryan Mohan MD is Attending Physician. sp3 13:23 Triage completed. bp 13:23 Arm band placed on. bp 13:32 CT Head C Spine In Process Unspecified. EDMS 14:20 Patient has correct armband on for positive identification. Bed in low position. Call dd2 light in reach. Side rails up X2. Client placed on continuous cardiac and pulse oximetry monitoring. NIBP monitoring applied. Noise minimized. Warm blanket given. Pillow given. Verbal reassurance given. 14:20 No provider procedures requiring assistance completed. Patient did not have IV access dd2 during this emergency room visit. Patient maintains SpO2 saturation greater than 95% on room air. 15:41 Scottie Umaña, RN is Primary Nurse. bp Administered Medications: No medications were administered Medication: 14:20 VIS not applicable for this client. dd2 Outcome: 14:28 Discharge ordered by . sp3 17:31 Discharged to skilled nursing. bp 17:31 Condition: stable 17:31 Discharge instructions given to skilled nursing, Instructed on discharge instructions, follow up and referral plans. Demonstrated understanding of instructions, follow-up care, 17:32 Patient left the ED. bp Signatures: Dispatcher [employer] EDMS Scottie Umaña, RN RN bp Ryan Mohan MD MD sp3 LITZY, TIMA, RN RN dd2
[2025-07-11 17:56] VITALS: TEMP 98; O2SAT 98
[2025-07-11 17:58] VITALS: BP 131/69
== END 2025-07-11 17:32 | disposition home or self-care (01) ==
LOC: ER 13:21
DX: S09.90XA Unspecified injury of head, initial encounter (principal); W06.XXXA Fall from bed, initial encounter; G20.A1 Parkinson's disease without dyskinesia, without mention of fluctuations
CPT/HCPCS: 70450; 72125; 99283

== ENCOUNTER 2025-07-12 16:38 | Inpatient (IN) | payer OTHER ==
--- OUTSIDE RECORDS SUMMARY | 2025-07-12 16:43 | XMS REPORT | Continuity of Care Document ---
Author Name Unknown Address [address] [place] [address] [facility] Address [address] [place] [address] Care Team Providers Care Propeller Tester Name Role Phone Ashley Tran MDhme Primary Care Physician RIYA HERNANDEZ Attending Clinician Unavailable Riya Hernandez MD Attending Clinician MONA TOVAR Attending Clinician Unavail able Mona Tovar MD Attending Clinician Doctor Unassigned, [place] Attending Clinician U navailable Emelia MOURA Attending Clinician Unavailable Emelia MOURA Attending Clinician Unavailable FABRICIO JONES Attending Clinician Unavailable TIFFANIE COX Attending Clinician Unavailable Tiffanie Cox MD Attending Clinician NICOLAS MOHAN Attending Clinician Unavailable Therapy, [facility] Cov[facility] Infusion Attending Clinician Unavailable Nicolas Mohan MD Attending Clinician [phone] Doctor Unassigned, [place] Attending Clinician U bryant Emelia MOURA Admitting Clinician Unavailable TIFFANIE COX Admitting Clinician Unavailable Payers Payer Name Policy Type Policy Number Effective Date Expirati on Date Source [employer] MEDICARE ADVANTAGE Medicare [id number] 2024 00:00:00 [employer] MEDICARE ADV HMO [id number] 2024 00:00:00 [facility] Medicaid [id number] 2023 00:00:00 Problems Condition Name Condition Details Condition Category Status Onset Date Resolution Date Last Treatment Date Treating Clinician Comments Source Abdominal pain Abdominal pain Disease Active 05-02 00:00: 00 Brennan Theodore Acute CVA (cerebrova scular accident) Acute CVA (cerebrova scular accident) Disease Active 05-02 00:00: 00 Brennan Matamoros Epic Diabetes Diabetes Disease Active 05-02 00:00: 00 Brennan Matamoros Epic Schizophre tasha Schizophre tasha Disease Active 05-02 00:00: 00 Brennan Theodore Edema Edema Disease Active 02-13 00:00: 00 Brennan Matamor[facility] Epic Fluctuatin g blood pressure Fluctuatin g blood pressure Disease Active 02-13 00:00: 00 Brennan Theodore PAD (periphera l artery disease) PAD (periphera l artery disease) Disease Active 02-13 00:00: 00 Luisoria robby [facility] Epic Syncope and collapse Syncope and collapse Disease Active 02-13 00:00: 00 Brennan Theodore Primary hypertensi on Primary hypertensi on Disease Active 02-13 00:00: 00 [facility] Edema, unspecifie d type Edema, unspecifie d type Disease Active 02-13 00:00: 00 [facility] Parkinson' s disease without dyskinesia , unspecifie d whether manifestat ions fluctuate Parkinson' s disease without dyskinesia , unspecifie d whether manifestat ions fluctuate Disease Active 02-13 00:00: 00 [facility] Obesity (BMI 30-39.9) Obesity (BMI 30-39.9) Disease Active 02-13 00:00: 00 [facility] Depression Depression Disease Active 2023-10 00:00: 00 [...] (CMS/HCC) Vascular parkinsoni sm (CMS/HCC) Disease Active 3 00:00: 00 Brennan Theodore Bipolar disorder Bipolar disorder Disease Active 2 00:00: 00 Brennan Theodore Dementia Dementia Disease [...] 05-11 00:00: 00 2024-08-02 00:00:00 2024-08-02 12:07:27 Brenann Theodore Hoarse voice quality Hoarse voice quality Disease Resolve d 01-15 00:00: 00 2024-08-02 00:00:00 2024-08-02 12:07:27 Brennan Theodore Throat pain Throat pain Disease Resolve d 01-15 00:00: 00 2024-08-02 00:00:00 2024-08-02 12:07:27 Brennan Theodore Allergies, Adverse Reactions, Alerts Allergy Name Allergy Type Status Severity Reaction(s) Onset Date Inactive Date Treating Clinician Comments Source NO KNOWN ALLERGIE S Drug Class Active [facility] Social History Social Habit Start Date Stop Date Quantity Comments Source Gender identity 2023-12-26 05:13:08 Identifies as male gender (finding) Anuj Pizanoann Ewelina [facility] function 2025-05-17 00:00:00 2025-05-17 00:00:00 [facility] Alcoholic beverage intake 2025-05-02 00:00:00 2025-05-02 00:00:00 Lifetime non-drinker (finding) Anuj Pizanoann Ewelina Tobacco use and exposure 2025-02-13 00:00:00 2025-02-13 00:00:00 Smokeless tobacco non-user [facility] Sex 2023-12-26 05:13:08 2023-12-26 05:13:08 Male (finding) Anuj Pizanoann Ewelina Exposure to SARS-CoV-2 (event) 2023-02-22 00:00:00 2023-03-04 19:16:00 Not sure [facility] Sex assigned at 1950 00:00:00 1950 00:00:00 [facility] Smoking Status Start Date Stop Date Source Tobacco smoking consumption unknown [facility] Never smoked tobacco [facility] Medications Ordered Medication Name Filled Medication Name Start Date Stop Date Current Medication? Ordering Clinician Indication Dosage Frequency Signature (SIG) Comments Components Source atorvastati n (Lipitor) 10 MG tablet atorvastati n (Lipitor) 10 MG tablet 05-02 10:35: 08 Yes 10mg Take 10 mg by mouth at bedtime. Brennan Theodore iopamidol (ISOVUE 370-500 mL) injection 90 mL 03-11 21:30: 00 03-11 21:45 :00 No [id number] 90mL 90 mL, Intravenou s, ONCE, 1 dose, On 03/11/25 at 1645, Routine [facility] loratadine 10 mg tablet 02-13 11:20: 35 Yes 10mg Take 1 tablet by mouth in the morning. [facility] losartan 25 mg tablet 02-13 11:20: 35 Yes 25mg Take 1 tablet by mouth in the morning. [facility] memantine 10 mg tablet 02-13 11:20: 35 Yes 10mg Take 1 tablet by mouth. Taking two tabs in the am [facility] metformin ER 500 mg 24 hr tablet 02-13 11:20: 35 Yes 500mg Take 1 tablet by mouth daily with breakfast. [facility] neomycin 500 mg tablet 02-13 11:20: 35 Yes 500mg Take 1 tablet by mouth every 4 (four) hours. [facility] sennosides- docusate sodium 8.6-50 mg per tablet 02-13 11:20: 35 Yes 1{tbl} Take 1 tablet by mouth in the morning and 1 tablet in the evening. [facility] QUEtiapine 100 mg tablet 02-13 11:20: 35 Yes 100mg Take 1 tablet by mouth in the morning and 1 tablet in the evening. [facility] QUEtiapine (SEROQUEL) 200 mg tablet 02-13 11:20: 35 Yes 200mg Take 1 tablet by mouth in the morning and 1 tablet in the evening. [facility] traZODone 50 mg tablet 02-13 11:20: 35 Yes 50mg Take 1 tablet by mouth at bedtime. Half tab [facility] TRULICITY 3 mg/0.5 mL PnIj 02-13 11:20: 35 Yes 3mg inject 1 Pen under the skin daily before a meal. [facility] PLAVIX 75 mg tablet 02-13 11:20: 35 Yes Take by mouth daily. [facility] divalproex 500 mg delayed release tablet 02-13 11:20: 35 Yes 500mg Take 1 tablet by mouth in the morning and 1 tablet in the evening. [facility] DULoxetine 60 mg capsule 02-13 11:20: 35 Yes 60mg Take 1 capsule by mouth in the morning. 2 capsules at bedtime. [facility] ergocalcife rol, vitamin d2, 1,250 mcg (50,000 unit) capsule 02-13 11:20: 35 Yes 1.25ug Take 1.25 mcg by mouth weekly. [facility] amLODIPine 10 mg tablet 02-13 11:12: 28 Yes 10mg Take 1 tablet by mouth in the morning. [facility] aspirin 81 mg EC tablet 02-13 11:12: 28 Yes 81mg Take 1 tablet by mouth in the morning. [facility] atorvastati n 10 mg tablet 02-13 11:12: 28 Yes 10mg Take 1 tablet by mouth every evening. [facility] gabapentin 100 mg capsule 02-13 11:12: 28 Yes 100mg Take 1 capsule by mouth in the morning and 1 capsule at noon and 1 capsule in the evening. 2 capsules by mouth tid. [facility] QUEtiapine 50 mg tablet 02-06 00:00: 00 Yes 100mg Take 2 tablets by mouth in the morning and 2 tablets in the evening. [facility] acetaminoph en 325 mg tablet 01-19 00:00: 00 02-19 04:59 :00 No 325mg Take 1 tablet by mouth every 8 (eight) hours as needed. [facility] QUEtiapine 25 mg tablet 01-14 00:00: 00 Yes 25mg Take 1 tablet by mouth in the morning and 1 tablet in the evening. [facility] metFORMIN XR (Glucophage -XR) 500 MG 24 [...] mg by Intramuscu lar route once now. [facility] ergocalcife rol 1.25 MG (64522 UT) capsule ergocalcife rol 1.25 MG (33486 UT) capsule 2023-10 12:01: 42 Yes 1.25ug [...] tablet famotidine (Pepcid) 20 MG tablet 2023-10 00:00: 00 Yes 20mg QD Take 20 mg by mouth 1 time each day. Brennan Theodore rOPINIRole (Requip) 0.5 MG tablet rOPINIRole (Requip) 0.5 MG tablet 2023-10 00:00: 00 Yes .5mg [id number] 3D Take 0.5 mg by mouth in the morning and 0.5 mg at noon and 0.5 mg in the evening. Brennan Theodore rOPINIRole 0.5 mg tablet 2023-10 00:00: 00 Yes .25mg Take 0.5 tablets by mouth in the morning and 0.5 tablets at noon and 0.5 tablets in the evening. [facility] PEPCID 20 mg tablet 2023-10 00:00: 00 Yes 20mg Take 1 tablet by mouth in the morning. [facility] LASIX 20 mg tablet 2023-10 0 00:00: 00 Yes 20mg Take 1 tablet by mouth in the morning. [facility] furosemide (Lasix) 20 MG tablet furosemide (Lasix) 20 MG tablet 2023-10 00:00: 00 05-02 00:00 :00 No 20mg QD Take 20 mg by mouth 1 time each day. Brennan Theodore rivastigmin e (Exelon) 6 MG capsule rivastigmin e (Exelon) 6 MG capsule 2023-10 011 00:00: 00 Yes 6mg Q.5D Take 6 mg by mouth in the morning and 6 mg in the evening. Brennan Theodore carbidopa-l evodopa (Sinemet) 25-100 MG tablet carbidopa-l evodopa (Sinemet) 25-100 MG tablet 2023-10 00:00: 00 Yes 2{tbl} Q6H Take 2 tablets by mouth in the morning and 2 tablets at noon and 2 tablets in the evening and 2 tablets before bedtime. Brennan Theodore carbidopa-l evodopa 25-100 mg tablet 2023-10 0- 00:00: 00 Yes 1{tbl} Take 1 tablet by mouth in the morning and 1 tablet at noon and 1 tablet in the evening. [facility] insulin lispro (HumaLOG) 100 UNIT/ML injection insulin [...] 03-05 07:00: 00 03-05 06:03 :00 No [id number] 70mL 70 mL, Intravenou s, ONCE, 1 dose, On [place] 03/05/23 at 0200, Routine [facility] NaCl 0.9% (NS) bolus infusion 1,000 mL 03-05 04:00: 00 03-05 04:27 :00 No 1000mL at 999 mL/hr, 1,000 mL, IV Infusion, ONCE, 1 dose, On Thu03/04/23 at 2300, STAT [facility] morpHINE (4 mg/mL) injection 4 mg 03-05 02:15: 00 03-05 02:05 :00 No 4mg 4 mg, Slow IV Push, ONCE, 1 dose, On Thu03/04/23 at 2115, STAT [facility] ondansetron (ZOFRAN (PF)) injection 4 mg 03-05 02:00: 00 03-05 02:05 :00 No 4mg 4 mg, Slow IV Push, ONCE, 1 dose, On Thu03/04/23 at 2115, DEONTE [facility] polyethylen e glycol 3350 (MIRALAX) 17 gram powder 03-05 00:00: 00 Yes [id number] 1{packe t} Take 1 Packet by mouth once daily as needed for Constipati on. [facility] docusate sodium 250 mg capsule 03-05 00:00: 00 Yes [id number] 250mg Take 1 capsule by mouth in the morning. [facility] dicyclomine 20 mg tablet 03-05 00:00: 00 Yes [id number] 20mg Take 1 tablet by mouth 4 (four) times daily. [facility] naproxen 500 mg tablet 03-05 00:00: 00 03-16 04:59 :00 No [id number] 500mg Take 1 tablet by mouth in the morning and 1 tablet in the evening. Take with meals. Do all this for 10 days. [facility] QUEtiapine (SEROquel) 50 MG tablet QUEtiapine (SEROquel) 50 MG tablet 01-16 00:00: 00 Yes 50mg 50 mg = 1 tab, PO, Daily, 0 Refill(s) Mempatricia [facility] pramipexole (Mirapex) 0.25 MG tablet pramipexole (Mirapex) [...] PO, TID, # 90 cap, 1 Refill(s) Memoria l [facility] memantine (Namenda) 10 MG tablet memantine (Namenda) [...] 06-27 21:15: 00 06-27 19:59 :00 No [id number] 1200mg 1,200 mg, Subcutaneo us, ONCE, 1 dose, On Thu06/27/21 at 1615, Routine [facility] Vital Signs Vital Name Observation Time Observation Value Comments S ource Systolic blood pressure 2025-05-17 16:40:00 142 mm[Hg] [facility] Diastolic blood pressure 2025-05-17 16:40:00 61 mm[Hg] [facility] Heart rate 2025-05-17 16:40:00 79 /min [facility] Oxygen saturation in Arterial blood by Pulse oximetry 2025-05-17 16:40:00 100 /min [facility] Body height 2025-05-17 16:37:00 160 cm pt stated height [facility] Body weight 2025-05-17 16:37:00 83.19 kg pt stated weight [facility] BMI 2025-05-17 16:37:00 32.49 kg/m2 [facility] Systolic blood pressure 2025-05-02 10:40:00 88 mm[Hg] [facility] Diastolic blood pressure 2025-05-02 10:40:00 46 mm[Hg] [facility] Heart rate 2025-05-02 10:40:00 80 /min [facility] Body temperature 2025-05-02 10:40:00 36.61 Qiana [facility] Respiratory rate 2025-05-02 10:40:00 16 /min [facility] Body height 2025-05-02 10:40:00 157[facility]5 [facility] 2025-05-02 10:40:00 84.369 [facility] BMI 2025-05-02 10:40:00 34.02 kg/m2 [facility] Oxygen saturation in Arterial blood by Pulse oximetry 2025-05-02 10:40:00 94 /min [facility] Systolic blood pressure 2025-05-02 10:40:00 88 mm[Hg] [facility] Diastolic blood pressure 2025-05-02 10:40:00 46 mm[Hg] [facility] Heart rate 2025-05-02 10:40:00 80 /min [facility] Body temperature 2025-05-02 10:40:00 36.61 Qiana [facility] Respiratory rate 2025-05-02 10:40:00 16 /min [facility] Body height 2025-05-02 10:40:00 157.5 cm [facility] Body weight 2025-05-02 10:40:00 84.369 kg [facility] BMI 2025-05-02 10:40:00 34.02 kg/m2 [facility] Oxygen saturation in Arterial blood by Pulse oximetry 2025-05-02 10:40:00 94 /min [facility] Systolic blood pressure 2025-03-11 23:52:00 122 mm[Hg] [facility] Diastolic blood pressure 2025-03-11 23:52:00 64 mm[Hg] [facility] Heart rate 2025-03-11 23:52:00 76 /min [facility] Body temperature 2025-03-11 23:52:00 36.72 Qiana [facility] Respiratory rate 2025-03-11 23:52:00 16 /min [facility] Oxygen saturation in Arterial blood by Pulse oximetry 2025-03-11 23:52:00 98 /min [facility] Body height 2025-03-11 19:22:00 154.9 cm [facility] Body weight 2025-03-11 19:22:00 85.276 kg [facility] BMI 2025-03-11 19:22:00 35.52 kg/m2 [facility] Systolic blood pressure 2025-03-09 18:59:00 124 mm[Hg] [facility] Diastolic blood pressure 2025-03-09 18:59:00 55 mm[Hg] [facility] Heart rate 2025-03-09 18:59:00 75 /min [facility] Body temperature 2025-03-09 18:59:00 36.61 Qiana [facility] Oxygen saturation in Arterial blood by Pulse oximetry 2025-03-09 18:59:00 100 /min [facility] Body height 2025-03-09 18:58:00 165.1 cm stated [facility] Body weight 2025-03-09 18:58:00 86.183 kg stated [facility] BMI 2025-03-09 18:58:00 31.62 kg/m2 [facility] Systolic blood pressure 2025-02-13 16:01:00 132 mm[Hg] [facility] Diastolic blood pressure 2025-02-13 16:01:00 65 mm[Hg] [facility] Heart rate 2025-02-13 16:01:00 79 /min [facility] Respiratory rate 2025-02-13 16:01:00 17 /min [facility] Body height 2025-02-13 16:01:00 162.6 cm [facility] Body weight 2025-02-13 16:01:00 83.371 kg [facility] BMI 2025-02-13 16:01:00 31.55 kg/m2 [facility] Oxygen saturation in Arterial blood by Pulse oximetry 2025-02-13 16:01:00 99 /min [facility] Systolic blood pressure 2024-08-02 12:05:00 173 mm[Hg] [facility] Diastolic blood pressure 2024-08-02 12:05:00 87 mm[Hg] [facility] Heart rate 2024-08-02 12:05:00 75 /min [facility] Body temperature 2024-08-02 12:05:00 36.22 Qiana [facility] Respiratory rate 2024-08-02 12:05:00 16 /min [facility] Body height 2024-08-02 12:05:00 154.9 cm [facility] Body weight 2024-08-02 12:05:00 90.084 kg [facility] BMI 2024-08-02 12:05:00 37.53 kg/m2 [facility] Oxygen saturation in Arterial blood by Pulse oximetry 2024-08-02 12:05:00 92 /min [facility] Systolic blood pressure 2024-08-02 12:05:00 173 mm[Hg] [facility] Diastolic blood pressure 2024-08-02 12:05:00 87 mm[Hg] [facility] Heart rate 2024-08-02 12:05:00 75 /min [facility] Body temperature 2024-08-02 12:05:00 36.22 Qiana [facility] Respiratory rate 2024-08-02 12:05:00 16 /min [facility] Body height 2024-08-02 12:05:00 154.9 cm [facility] Body weight 2024-08-02 12:05:00 90.084 kg [facility] BMI 2024-08-02 12:05:00 37.53 kg/m2 [facility] Oxygen saturation in Arterial blood by Pulse oximetry 2024-08-02 12:05:00 92 /min [facility] Systolic blood pressure 2023-03-05 06:22:00 131 mm[Hg] [facility] Diastolic blood pressure 2023-03-05 06:22:00 82 mm[Hg] [facility] Heart rate 2023-03-05 06:22:00 91 /min [facility] Respiratory rate 2023-03-05 06:22:00 18 /min [facility] Oxygen saturation in Arterial blood by Pulse oximetry 2023-03-05 06:22:00 97 /min [facility] Body temperature 2023-03-05 00:19:00 37.5 Qiana [facility] Body height 2023-03-05 00:19:00 162.6 cm [facility] Body weight 2023-03-05 00:19:00 92.08 kg [facility] BMI 2023-03-05 00:19:00 34.84 kg/m2 [facility] Systolic blood pressure 2021-06-27 20:46:00 149 mm[Hg] [facility] Diastolic blood pressure 2021-06-27 20:46:00 78 mm[Hg] [facility] Heart rate 2021-06-27 20:46:00 81 /min [facility] Body temperature 2021-06-27 20:46:00 36 Qiana [facility] Respiratory rate 2021-06-27 20:46:00 18 /min [facility] Oxygen saturation in Arterial blood by Pulse oximetry 2021-06-27 20:46:00 95 /min [facility] Body height 2021-06-27 19:56:00 160 cm [facility] Body weight 2021-06-27 19:56:00 87.544 kg [facility] BMI 2021-06-27 19:56:00 34.19 kg/m2 [facility] Procedures Procedure Date / Time Performed Performing Clinician Source CT ABDOMEN PELVIS W CONTRAST 2025-03-11 21:34:49 Emelia Moura [facility] URINALYSIS 2025-03-11 21:03:00 Emelia Moura [facility] LIPASE 2025-03-11 20:45:00 Emelia Moura [facility] MAGNESIUM 2025-03-11 20:45:00 Emelia Moura [facility] COMP. METABOLIC PANEL ([id number]) 2025-03-11 20:45:00 Emelia Moura [facility] CBC WITH DIFF 2025-03-11 20:45:00 Emelia Moura [facility] PROTHROMBIN TIME / INR 2025-03-11 20:45:00 Emelia Moura [facility] ACTIVATED PARTIAL THRMPLAS GABRIELLE 2025-03-11 20:45:00 Emelia Moura [facility] VENOUS REFLUX DUPLEX BILATERAL - BY VASCULAR LAB 2025-03-06 15:40:01 David [facility] TRANSTHORACIC ECHO (TTE) COMPLETE 2025-03-06 14:54:09 David [facility] CT CHEST PULMONARY ANGIOGRAM 2023-03-05 06:01:00 Tiffanie Cox [facility] LACTIC ACID WHOLE BLOOD 2023-03-05 04:36:00 Do sangeetha Cox [facility] URINALYSIS 2023-03-05 02:26:00 Tiffanie Cox [facility] ASSIGNMENT OF BENEFITS 2023-03-05 02:01:19 Docto r Unassigned, [place] [facility] CT ABDOMEN PELVIS WO CONTRAST 2023-03-05 01:54:00 Tiffanie Cox [facility] CT THORAX WO CONTRAST 2023-03-05 01:54:00 Thad Cox [facility] LACTIC ACID WHOLE BLOOD 2023-03-05 01:20:00 Do sangeetha Cox [facility] LIPASE 2023-03-05 01:19:00 Tiffanie Cox [facility] TROPONIN I 2023-03-05 01:19:00 Tiffanie Cox [facility] COMP. METABOLIC PANEL ([id number]) 2023-03-05 01:19:00 Tiffanie Cox [facility] CBC WITH DIFF 2023-03-05 01:19:00 Tiffanie Cox [facility] PROTHROMBIN TIME / INR 2023-03-05 01:19:00 Juma Cox [facility] ACTIVATED PARTIAL THRMPLAS GABRIELLE 2023-03-05 01:19:00 Tiffanie Cox [facility] N-TERMINAL PRO-BNP 2023-03-05 01:19:00 Tiffanie Cox [facility] CONSENT/REFUSAL FOR DIAGNOSIS AND TREATMENT 2023-03-05 00:08:58 Doctor Unassigned, [place] [facility] CONSENT/REFUSAL FOR DIAGNOSIS AND TREATMENT 2021-06-27 05:01:00 Doctor Unassigned, [place] [facility] Encounters Start Date/Time End Date/Time Encounter Type Admission Type Attending [facility] Care Department Encounter ID Source 2025-05-17 11:20:00 2025-05-17 11:50:40 [facility] [id number] 350.1.13.10 [id number] [id number] [facility] 2025-05-02 10:27:05 2025-05-02 11:03:06 Outpatient Elective MONA TOVAR EOUT EOUT [id number] [facility] 2025-05-02 10:30:00 2025-05-02 10:45:00 Office Visit Mona Tovar [id number] [id number] [id number] Brennan bustamante [facility] 2025-03-06 00:00:00 2025-04-08 18:24:30 Patient Secure Msg Riya Hernandez [facility] [id number] 350.1.13.10 [id number] [id number] [facility] 2025-02-15 00:00:00 2025-03-18 18:16:53 Patient Secure Msg Doctor Unassigned, [place] Doctor Unassigned, [place] [facility] 1.2.840.114 350.1.13.10 4.2.7.2.686 [id number] [facility] 2025-03-11 14:23:00 2025-03-11 18:54:00 Emergency X Emelia MOURA [facility] ERT [id number] [facility] 2025-03-09 14:00:00 2025-03-09 15:00:53 Office Visit FABRICIO POE [facility] 1.2.840.114 350.1.13.10 4.2.7.2.686 [id number] [facility] 2025-03-06 09:00:42 2025-03-06 23:59:00 [facility] 1.2.840.114 350.1.13.10 4.2.7.2.686 [id number] [facility] 2025-03-06 10:00:00 2025-03-06 10:00:00 Outpatient R DAVID [facility] [id number] [facility] 2025-03-06 09:00:00 2025-03-06 09:00:00 Hospital Encounter R DAVID [facility] 1.2.840.114 350.1.13.10 4.2.7.2.686 [id number] [facility] 2025-02-17 00:00:00 2025-02-17 11:43:26 Telephone David [facility] [id number] 350.1.13.10 4.2.7.2.686 [id number] [facility] 2025-02-14 00:00:00 2025-02-14 10:28:01 Telephone David [facility] BUILD[facility] 1.2.840.114 350.1.13.10 4.2.7.2.686 [id number] [facility] 2025-02-13 10:40:00 2025-02-13 11:27:25 Outpatient R DAVID, [facility] [id number] [facility] 2025-02-13 10:40:00 2025-02-13 11:27:25 Office [facility] 1.2.840.114 350.1.13.10 4.2.7.2.686 [id number] [facility] 2024-08-02 11:45:00 2024-08-02 12:20:56 Office Visit Mona Tovar [id number] 350.1.13.70 8.2.7.2.686 [id number] Brennan bustamante [facility] 2024-08-02 11:44:27 2024-08-02 12:20:56 Outpatient Elect[facility] [id number] [facility] 2023-03-04 19:22:00 2023-03-05 02:31:00 Emergency X TIFFANIE COX [facility] ERT [id number] [facility] 2023-03-04 19:22:00 2023-03-05 02:31:00 Emergency [place]iffanie [facility] [facility] [id number] [facility] 2021-06-27 15:30:00 2021-06-27 15:30:00 Outpatient NICOLAS FUENTES [facility] [id number] [facility] 2021-06-27 13:22:04 2021-06-27 14:22:04 Nurse Visit Therapy, Adc Covid Nicolas [facility] [place] [id number] [facility] 2021-06-27 00:00:00 2021-06-27 00:00:00 Orders Only Doctor Unassigned, [place] [facility] [id number] [facility] Results Test Description Test Time Test Comments [...] of the thoracic and lumbar spinesare noted. [facility] Notes Date/Time Note Provider Source 2025-05-02 11:02:44 [facility]fq[facility]32[facility]52 11:02:44* Mona Tovar MD - 05/02/2025 10:30 [...] and mobility. - Follow-up in 6-9 months. [facility]2025-07-29 11:02:44Upcoming Encounters Health Maintenance Due [...] on patient's age to complete this topic [facility]30[facility]74 11:02:44 Diagnosis Parkinson's disease without dyskinesia, with fluctuating manifestations (HCC) - Primary [facility]Mqrrijk8492-52-37 11:02:44 [facility]Agjpeiq2756-52-87 11:02:43* [facility] CenterXopgoaa5907-91-84 11:02:43 [facility]Gefcesd8915-63-00 11:02:43* Mona Tovar MD - 05/02/2025 10:30 [...] and mobility. - Follow-up in 6-9 months. [place] [address]-07-29 11:02:43Upcoming Encounters Health Maintenance Due Date Last [...] on patient's age to complete this topic [facility] CenterNynmree1896-59-05 11:02:43 Diagnosis Parkinson's disease without dyskinesia, with fluctuating manifestations (HCC) - Primary [facility] CenterFgzejcl4415-34-23 11:02:43 [place] [id number] 18:53:48 Pt given printed and verbal discharge [...] gait, in no apparent distress, Cathleen Schneider [facility]Qekncg7323-21-07 14:20:06 states: "He's at a [facility]. They said he fell last weeks. He's starting to hurt more and he has bruises on his abd" Reports RLQ pain, noted large bruises. Shilpa Leung [facility]Mvjppw3567-51-83 11:31:31 Called to inform patient of results and recommendations as detailed below. Spoke with Patient's , Zaina who verbalized understanding. Called [facility] to provide this information per patient's , Zaina. Micaela Mckeon [facility]Gijydj5651-81-56 11:27:08 ----- Message from Riya Hernandez sent at 02/13/2025 12:18 PM CDT ----- I reviewed his hospital record. CT angiogram showed 90% carotid artery stenosis. Please make appointment with [facility] vascular surgery. T [facility] CenterGvjpvm6704-91-72 10:27:16 Fax received from [facility] with external medical records. Placed in folder for review. T [place] [id number] 10:40:00 Addended by: RIYA HERNANDEZ MD on: 02/13/2025 12:18 PM Modules accepted: Orders [facility] CenterTcnoor0517-26-94 12:21:05* [facility] CenterFtksubg0793-03-17 12:21:05 [facility] CenterZavelxo7243-21-81 12:21:05* Mona Tovar MD - 08/02/2024 11:45 [...] fluctuating manifestations (HCC) Stable, continue present medications. [facility] Gbwszqz8904-47-48 12:21:05Upcoming Encounters Health Maintenance Due Date Last [...] on patient's age to complete this topic [facility] Kbyecgt8258-76-63 12:21:05 Diagnosis Parkinson's disease without dyskinesia, with fluctuating manifestations (HCC) - Primary [facility]Gaungch3445-62-68 12:21:05 Anuj Matamoros
[2025-07-12 17:18] LABS: Absolute Lymphocytes (CBC) 1.1 K/uL (0.7-4.9); Hematocrit 34.5 % (39.6-49.0); Hemoglobin 11.9 g/dL (13.6-17.9); MCH 32.0 pg (27.0-35.0); MCHC 34.5 g/dL (32.0-36.0); MCV 92.7 fL (80-100); MPV 7.5 fL (7.6-11.3); Nucleated RBC Absolute Count 0.0 (0-0); Nucleated Red Blood Cells % 0.1 % (0-0); RBC Red Blood Cell Count 3.72 M/uL (4.33-5.43); White Blood Count 8.10 thou/uL (4.3-10.9)
[2025-07-12 17:33] LABS: PT Prothrombin Time 12.8 SECONDS (10-13.0); Protime INR 1.14
[2025-07-12 17:41] LABS: AST/SGOT 14 U/L (15-37); Albumin 2.7 g/dL (3.4-5.0); Albumin/Globulin Ratio 0.7 (1.1-1.8); Alkaline Phosphatase 66 U/L (45-117); Anion Gap 10.1 mEq/L (5.0-15.0); BUN Blood Urea Nitrogen 36 mg/dL (7-18); Bilirubin Indirect, Calculated 0.3 mg/dL (0.2-0.8); Globulin 3.7 g/dL (2.3-3.5); Glucose Level 136 mg/dL (74-106); Magnesium 2.0 mg/dL (1.6-2.4); NT PRO-BNP 375 pg/mL (<125); Potassium 4.1 mEq/L (3.5-5.1); Troponin High Sensitivity 4.8 pg/mL (<58.9)
--- NOTE | 2025-07-12 17:42 | RAD REPORT ---
EXAMINATION: Head C Spine Mpr Wo Con CLINICAL INDICATION: Male, 75 years old. fall, syncope TECHNIQUE: Axial CT images from the skull base to the vertex without intravenous contrast. Axial CT i mages through the cervical spine were obtained without intravenous contrast. Sagittal and coronal reformatted images were created from the data set. Coronal and sagittal reformatted images were creat ed from the data set. One or more of the following dose reduction techniques were used: Automated exposure control, adjustment of the mA and/or kV according to patient size, and/or iterative reconstr uction. Unless otherwise specified, incidental findings do not require dedicated imaging follow-up. [id number]. COMPARISON: 07/11/2025 FINDINGS: Head: INTRACRANIAL: No acute intracranial hemorrhage. No acute large vascular territory infarct. No hydro cephalus. No mass effect or midline shift. Mild chronic small vessel ischemic changes. Moderate cerebral atrophy. VASCULATURE: No visualized abnormalities in the arteries or dural venous sinuses. SCALP/SKULL: No calvarial fracture identified. No acute soft tissue abnormality. SINUSES: The visualized paranasal sinuses are mostly clear. No significant mastoid fluid. Cervical spine: ALIGNMENT: The cervical spine has normal alignment without scoliosis or spondylolisthesis. BONE: Vertebral body heights are maintained. No aggressive osseous lesions. DEGENERATIVE: Multilevel cervical spondylosis with evidence of bilateral neural foraminal narrowing. No high grade central spinal stenosis. SOFT TISSUE: No significant abnormalities in the soft tissue of the neck. The visualized lung apices are clear. IMPRESSION: No acute intracranial abnormality. No acute fracture or traumatic malalignment of the cervical spine.
[2025-07-12 17:44] LABS: ALT/SGPT < 14 U/L (16-61)
--- NOTE | 2025-07-12 17:48 | RAD REPORT ---
EXAM: Chest Abd Pelvis Wo Con CLINICAL INDICATION: Male, 75 years old back pain, fall TECHNIQUE: CT chest, abdomen and pelvis was performed, without IV contrast, as per department protoco l. Axial, sagittal and coronal reconstructions were obtained. One or more of the following dose reduction techniques were used: Automated exposure control, adjustment of the mA and/or kV according to the patient size, and/or iterative reconstruction. Unless otherwise specified, incidental findings do not require dedicated imaging follow-up. [id number]. COMPARISON: CT abdomen/pelvis 02/04/2023 FINDINGS: The lack of intravenous contrast limits the sensitivity of this exam for evaluation of solid visceral organs, vascular structures, and retroperitoneum. ---THORAX--- LOWER NECK AND CHEST WALL: Visualized thyroid gland. Gynecomastia. MEDIASTINUM AND LYMPH NODES: No mediastinal mass or fluid collection. Normal size mediastinal, hilar, and axillary lymph nodes. THORACIC AORTA: No thoracic aortic aneurysm. Atherosclerotic changes are present. PULMONARY ARTERIES: Caliber is within normal limits. Unable to assess for pulmonary emboli without IV contrast. HEART: Normal heart size. Moderate coronary artery calcifications. No significant pericardial effusio n. Mitral annular calcifications. LUNGS AND AIRWAYS: Airways are clear. No evidence of airspace or interstitial process. Motion artifac t limits evaluation for pulmonary nodule detection. PLEURA: No pleural effusion. No pneumothorax. ---ABDOMEN/PELVIS--- UPPER GI: No significant abnormality. LIVER: Hepatic steatosis, but otherwise unremarkable. GALLBLADDER/BILE DUCTS: No biliary ductal dilatation.? PANCREAS: Pancreatic calcifications consistent with sequelae of chronic pancreatitis. No acute pancre atitis or suspicious masses. SPLEEN: Unremarkable. ADRENALS: No adrenal masses. KIDNEYS AND URETERS: No hydronephrosis.Limited evaluation for renal lesions in the absence of IV cont rast.No renal calculi. No ureteral calculi. ABDOMINAL AORTA AND OTHER VESSELS: Mild atherosclerotic changes. PERITONEUM: No abnormal free fluid. No free air. LYMPH NODES: No pathologic lymphadenopathy. ABDOMINAL WALL: Unremarkable SMALL BOWEL/COLON: Small bowel has normal course and caliber. No colonic wall thickening or pericolon ic inflammatory changes. Normal appendix. Mild diverticulosis without diverticulitis. Moderate formed stool burden. URINARY BLADDER: Underdistended but grossly unremarkable. REPRODUCTIVE ORGANS: No pathologic process. ---COMBINED--- MUSCULOSKELETAL: Remote L4 compression fracture. No acute fracture. ADDITIONAL FINDINGS: None. IMPRESSION: No evidence of significant trauma to the chest, abdomen, or pelvis. No acute findings identified. Inc idental findings as noted above.
[2025-07-12] MEDS ORDERED: NA CHLORIDE 0.9% 500 ML ONE (17:53)
--- NOTE | 2025-07-12 18:37 | RAD REPORT ---
EXAM: Chest Single View HISTORY: 75 years Male syncope COMPARISON: 07/12/25 FINDINGS: LUNGS/PLEURA: Elevated right hemidiaphragm with underlying atelectasis/scarring. CARDIAC/MEDIASTINUM: The cardiac silhouette is within normal limits. UPPER ABDOMEN: No significant abnormality. BONES: No acute abnormality. LINES/TUBES/OTHER: N/A IMPRESSION: No evidence of acute cardiopulmonary disease.
--- NOTE | 2025-07-12 20:34 | ER ---
Nurse's Notes [facility] Name: Geraldo Solis Age: 75 yrs Sex: Male : 1950 Arrival Date: 07/12/2025 Time: 16:38 Bed 15 Private MD: Diagnosis: Orthostatic hypotension;Syncope Presentation: 07/12 16:40 Chief complaint: EMS states: ORTHOSTATIC HYPOTENSION WITH SYNCOPE AT [facility]. bp Coronavirus screen: At this time, the client does not indicate any symptoms associated with coronavirus-19. Ebola Screen: No symptoms or risks identified at this time. Initial Sepsis Screen: Does the patient meet any 2 criteria? No. Patient's initial sepsis screen is negative. Does the patient have a suspected source of infection? No. Patient's initial sepsis screen is negative. Risk Assessment: Do you want to hurt yourself or someone else? Patient reports no desire to harm self or others. Onset of symptoms was July 12, 2025. Care prior to arrival: IV initiated. 20 GA, in the left antecubital area, Glucose check: 139. 16:40 Method Of Arrival: EMS: [facility] bp 16:40 Acuity: MARKO 3 bp Triage Assessment: 16:42 General: Appears in no apparent distress. Behavior is calm, cooperative. Pain: Denies bp pain. EENT: No deficits noted. Neuro: Reports a syncopal episode. Cardiovascular: Rhythm is sinus rhythm. Respiratory: No deficits noted. GI: No signs and/or symptoms were reported involving the gastrointestinal system. : No signs and/or symptoms were reported regarding the genitourinary system. Derm: No deficits noted. Musculoskeletal: No deficits noted. Historical: - Allergies: 16:42 No Known Allergies; bp - PMHx: 16:42 Bipolar disorder; constipation; Dementia; Diabetes - NIDDM; Hypertension; Parkinsons; bp Parkinsons; Schizophrenia; - Immunization history:: Adult Immunizations up to date. - Infectious Disease History:: Denies. - Social history:: Smoking status: Patient denies any tobacco usage or history of. Screenin:[address] [facility] ED Fall Risk Assessment (Adult) History of falling in the last 3 months, jb4 including since admission Yes- single mechanical fall (1 pt) Confusion or Disorientation No (0 pts) Intoxicated or Sedated No (0 pts) Impaired Gait Yes (1 pt) Mobility Assist Device Used Yes (1 pt) Altered Elimination No (0 pt) Score/Fall Risk Level 3 or more points = High Risk Oriented to surroundings, Maintained a safe environment. Abuse screen: Denies threats or abuse. Nutritional screening: No deficits noted. Tuberculosis screening: No symptoms or risk factors identified. Assessment: 16:42 General: SEE TRIAGE NOTE. bp 17:46 Reassessment: Patient appears in no apparent distress at this time. Patient and/or bp family updated on plan of care and expected duration. Pain level reassessed. Neuro: Level of Consciousness is awake, alert, obeys commands. Cardiovascular: Rhythm is sinus rhythm. 19:02 Reassessment: Patient appears in no apparent distress at this time. Patient and/or jb4 family updated on plan of care and expected duration. Pain level reassessed. Neuro: Level of Consciousness is awake, alert, obeys commands, Oriented to person, place, time, situation. 20:00 Reassessment: Patient appears in no apparent distress at this time. Patient and/or jb4 family updated on plan of care and expected duration. Pain level reassessed. Patient is alert, oriented x 3, equal unlabored respirations, skin warm/dry/pink. 21:34 Reassessment: Patient appears in no apparent distress at this time. Patient and/or jb4 family updated on plan of care and expected duration. Pain level reassessed. Patient is alert, oriented x 3, equal unlabored respirations, skin warm/dry/pink. 07/13 07:15 Reassessment: SEE [facility] FOR CONTINUED DOCUMENTATION. db Vital Signs: 07/12 16:40 BP 100 / 60; Pulse 60; Resp 16; Temp 98; Pulse Ox 97% ; bp 17:45 BP 117 / 54; Pulse 72; Resp 15; Pulse Ox 100% ; bp 19:04 BP 120 / 60; Pulse 68; Resp 18; Pulse Ox 96% on R/A; jb4 19:12 BP 108 / 52 RA Supine (auto/reg); Pulse 69; Resp 16; Pulse Ox 97% on R/A; jb4 19:15 BP 73 / 53 RA Sitting (auto/reg); Pulse 73; Resp 16; Pulse Ox 96% on R/A; jb4 19:19 BP 121 / 62; Pulse 70; Resp 16; Pulse Ox 98% on R/A; jb4 20:22 BP 125 / 60; Pulse 66; Resp 16; Pulse Ox 99% on R/A; jb4 21:30 BP 145 / 55; Pulse 85; Resp 15; Pulse Ox 98% ; jb4 19:15 Provider notified, orthostatic blood pressures stopped, pt returned to semi mcintosh jb4 position ED Course: 16:40 Patient arrived in ED. bp 16:40 Juliocesar San PA-C is PHCP. cp 16:40 Deni Corona DO is Attending Physician. cp 16:42 Triage completed. bp 16:42 Arm band placed on. bp 16:43 Maintain EMS IV. Dressing intact. Good blood return noted. Site clean \T\ dry. Gauge \T\ bp site: 20 LAC. 17:02 Scottie Umaña, RN is Primary Nurse. bp 17:28 CT Head C Spine In Process Unspecified. EDMS 17:28 Chest Abd Pelvis Wo Con In Process Unspecified. EDMS 18:22 XRAY Chest (1 view) In Process Unspecified. EDMS 20:00 Patient has correct armband on for positive identification. Call light in reach. Side jb4 rails up X 1. Provided Education on: plan of care. 20:33 Shorty Peres MD is Hospitalizing Provider. cp 22:00 No provider procedures requiring assistance completed. Patient admitted, IV remains in jb4 place. Administered Medications: 17:55 Drug: NS 0.9% IV 500 ml 500 ml IV at 1 bolus once; to be given as a bolus over 60 bp minutes Volume: 500 ml; Route: IV; Rate: 1 bolus; Site: left antecubital; Medication: 07/13 07:10 VIS not applicable for this client. tb4 Outcome: 07/12 20:34 Decision to Hospitalize by Provider. cp 22:00 Admitted to ER Hold. Please see [facility] for further documentation. jb4 22:00 Condition: stable 22:00 Discharge instructions given to patient, family, Instructed on the need for admit, Demonstrated understanding of instructions, 07/13 14:31 Patient left the ED. db Signatures: Dispatcher [employer] EDMS Juliocesar San PA-C PA-C cp Bryson, James, RN RN jb4 Scottie Umaña, RN RN bp Yolanda Forte RN RN db Brown, Dona, RN RN tb4
--- NOTE | 2025-07-12 20:34 | EDPHYS ---
Physician Documentation [facility] Name: Geraldo Solis Age: 75 yrs Sex: Male : 1950 Arrival Date: 07/12/2025 Time: 16:38 Bed 15 Private MD: ED Physician Deni Corona HPI: 07/12 16:55 This 75 yrs old Male presents to ER via EMS with complaints of Syncope. cp 16:55 The patient has experienced syncope, lost consciousness. Onset: The symptoms/episode cp began/occurred just prior to arrival. Duration: This was a single episode, that lasted an unknown period of time. 16:55 Associated injury: The patient did not suffer any apparent associated injury. cp Associated signs and symptoms: Pertinent positives: back pain, Pertinent negatives: abdominal pain, chest pain, confusion, seizure. Historical: - Allergies: 16:42 No Known Allergies; bp - PMHx: 16:42 Bipolar disorder; constipation; Dementia; Diabetes - NIDDM; Hypertension; Parkinsons; bp Parkinsons; Schizophrenia; - Immunization history:: Adult Immunizations up to date. - Infectious Disease History:: Denies. - Social history:: Smoking status: Patient denies any tobacco usage or history of. ROS: 17:00 Constitutional: Negative for fever, poor PO intake, cp 17:00 Cardiovascular: Negative for chest pain, cp 17:00 Back: Positive for pain at rest, 17:00 Eyes: Negative for injury, pain, redness, and discharge, cp 17:00 Respiratory: Negative for cough, wheezing, cp 17:00 Abdomen/GI: Negative for vomiting, diarrhea, constipation, 17:00 Neuro: Negative for altered mental status, 17:00 All other systems are negative, Exam: 17:05 Constitutional: The patient appears in no acute distress, alert, awake, cp non-diaphoretic, non-toxic, well developed, well nourished, 17:05 Head/Face: Normocephalic, atraumatic. cp 17:05 Eyes: Pupils: equal, round, and reactive to light and accomodation, Conjunctiva: normal, no exudate, no injection, Sclera: no appreciated abnormality, Lids and lashes: appear normal, bilaterally, 17:05 ENT: External ear(s): are unremarkable, Nose: is normal, Mouth: Lips: moist, Oral mucosa: moist, Posterior pharynx: Airway: no evidence of obstruction, patent, 17:05 Neck: ROM/movement: is normal, is supple, without pain, no range of motions limitations, 17:05 Chest/axilla: Inspection: normal, 17:05 Cardiovascular: Rate: normal, Rhythm: regular, Edema: is not appreciated, JVD: is not appreciated, 17:05 Respiratory: the patient does not display signs of respiratory distress, Respirations: normal, no use of accessory muscles, no retractions, labored breathing, is not present, Breath sounds: are clear throughout, no decreased breath sounds, no stridor, no wheezing, 17:05 Abdomen/GI: Inspection: abdomen appears normal, Bowel sounds: active, all quadrants, Palpation: abdomen is soft and non-tender, in all quadrants, 17:05 Back: pain, is absent, ROM is normal, 17:05 Skin: cellulitis, is not appreciated, no rash present. 17:05 Neuro: Orientation: to person, situation, Mentation: able to follow commands, Motor: moves all fours, no focal deficits, Sensation: no obvious gross deficits, 17:59 ECG was reviewed by the Attending Physician. cp Vital Signs: 16:40 BP 100 / 60; Pulse 60; Resp 16; Temp 98; Pulse Ox 97% ; bp 17:45 BP 117 / 54; Pulse 72; Resp 15; Pulse Ox 100% ; bp 19:04 BP 120 / 60; Pulse 68; Resp 18; Pulse Ox 96% on R/A; jb4 19:12 BP 108 / 52 RA Supine (auto/reg); Pulse 69; Resp 16; Pulse Ox 97% on R/A; jb4 19:15 BP 73 / 53 RA Sitting (auto/reg); Pulse 73; Resp 16; Pulse Ox 96% on R/A; jb4 19:19 BP 121 / 62; Pulse 70; Resp 16; Pulse Ox 98% on R/A; jb4 20:22 BP 125 / 60; Pulse 66; Resp 16; Pulse Ox 99% on R/A; jb4 21:30 BP 145 / 55; Pulse 85; Resp 15; Pulse Ox 98% ; jb4 19:15 Provider notified, orthostatic blood pressures stopped, pt returned to semi mcintosh jb4 position MDM: 16:40 Medical Screening Exam initiated cp 17:00 Differential Diagnosis: cardiac arrhythmia, GI bleed, idiopathic syncope, seizure, cp sepsis, vasovagal episode. 20:35 Data reviewed: vital signs, nurses notes, lab test result(s), EKG, radiologic studies, cp CT scan, and as a result, I will admit patient. 20:35 Management of patient was discussed with the following: Hospitalist: MR Jauregui [employer] INTEGRATION ARCHITECT will cp admit after discussion. I considered the following discharge prescriptions or medication management in the emergency department Medications were administered in the Emergency Department. See MAR. Independent interpretation of the following test(s) in the Emergency Department EKG: See my EKG interpretation above. Care significantly affected by the following chronic conditions: Diabetes, Hypertension, dementia, Parkinsons. Response to treatment: the patient's symptoms have mildly improved after treatment. 07/12 16:49 Order name: UA Rfx Mahamed Cult if indicated; Complete Time: 10:16 cp 07/12 16:49 Order name: Basic Metabolic Panel; Complete Time: 17:51 cp 07/12 17:51 Interpretation: Normal except: NA 134; GLUC 136; BUN 36; CRE 1.33; GFR 56. cp 07/12 16:49 Order name: CBC with Diff; Complete Time: 17:51 cp 07/12 16:49 Order name: LFT's; Complete Time: 17:51 cp 07/12 16:49 Order name: Magnesium; Complete Time: 17:51 cp 07/12 16:49 Order name: NT PRO-BNP; Complete Time: 17:51 cp 07/12 16:49 Order name: PT-INR; Complete Time: 17:51 cp 07/12 16:49 Order name: Troponin HS; Complete Time: 17:51 cp 07/12 16:50 Order name: Lactate w/ 2H reflex if indic.; Complete Time: 17:51 cp 07/12 20:46 Order name: CBC with Automated Diff EDMS 07/12 20:46 Order name: CBC with Automated Diff; Complete Time: 10:16 EDMS 07/12 20:46 Order name: Comprehensive Metabolic Panel EDMS 07/12 20:46 Order name: Comprehensive Metabolic Panel; Complete Time: 10:16 EDMS 07/12 22:21 Order name: Glucose, Ancillary Testing; Complete Time: 10:16 EDMS 07/13 14:31 Order name: Glucose, Ancillary Testing EDMS 07/12 16:49 Order name: XRAY Chest (1 view); Complete Time: 19:03 cp 07/12 19:03 Interpretation: Report review. cp 07/12 16:52 Order name: CT Head C Spine; Complete Time: 17:51 cp 07/12 16:57 Order name: Chest Abd Pelvis Wo Con; Complete Time: 17:51 EDMS 07/12 17:53 Interpretation: Report reviewed. 07/12 16:49 Order name: Cardiac monitoring; Complete Time: 17:43 cp 07/12 16:49 Order name: EKG - Nurse/Tech; Complete Time: 17:43 cp 07/12 16:49 Order name: IV Saline Lock; Complete Time: 17:43 cp 07/12 16:49 Order name: Labs collected and sent; Complete Time: 17:43 cp 07/12 16:49 Order name: O2 Per Protocol; Complete Time: 17:43 cp 07/12 16:49 Order name: O2 Sat Monitoring; Complete Time: 17:43 cp 07/12 19:03 Order name: Orthostatics; Complete Time: 19:20 cp EC:59 Rate is 72 beats/min. Rhythm is regular. TN interval is normal. QRS interval is normal. cp QT interval is normal. Interpreted by me. Reviewed by me. Administered Medications: 17:55 Drug: NS 0.9% IV 500 ml 500 ml IV at 1 bolus once; to be given as a bolus over 60 bp minutes Volume: 500 ml; Route: IV; Rate: 1 bolus; Site: left antecubital; Disposition: 19:46 I was immediately available on-site in the Emergency Department for consultation in the ms3 care of the patient. Disposition Summary: 07/12/25 20:34 Hospitalization Ordered Notes: Hospitalization Status: Observation cp Provider: Shorty Peres cp Condition: Stable cp Problem: new cp Symptoms: have improved cp Bed/Room Type: Standard cp Location: Telemetry/MedSurg (observation)(07/13/25 13:28) 6 Room Assignment: 221(07/13/25 13:28) 6 Diagnosis - Orthostatic hypotension cp - Syncope cp Forms: - Medication Reconciliation Form cp - SBAR form cp - Leadership Thank You Letter cp Signatures: Dispatcher [employer] EDPR Juliocesar San PA-C PA-C cp Peltier, Brian, RN RN bp Deni Corona DO DO ms3 Nina Mancilla, RN RN vc1 Rosalia Turner 6 Corrections: (The following items were deleted from the chart) 16:49 16:49 UA Rfx Mahamed Cult if indicated+U.LAB.BRZ ordered. EDMS EDMS 16:49 16:49 BASIC METABOLIC PANEL+C.LAB.BRZ ordered. EDMS EDMS 16:49 16:49 CBC+H.LAB.BRZ ordered. EDMS EDMS 16:49 16:49 HEPATIC FUNCTION+C.LAB.BRZ ordered. EDMS EDMS 16:49 16:49 MAGNESIUM+C.LAB.BRZ ordered. EDMS EDMS 16:49 16:49 PROBNP+C.LAB.BRZ ordered. EDMS EDMS 16:49 16:49 PROTIME (+INR)+COAG.LAB.BRZ ordered. EDMS EDMS 16:49 16:49 Troponin High Sensitivity+C.LAB.BRZ ordered. EDMS EDMS 16:50 16:50 Chest Single View+RAD.RAD.BRZ ordered. EDMS EDMS 16:51 16:51 LACTATE+C.LAB.BRZ ordered. EDMS EDMS 16:55 16:53 Head C Spine Cap Wo Con+CT.RAD.BRZ ordered. EDMS EDMS 23:04 20:34 Telemetry/MedSurg (observation) cp vc1 23:04 20:34 cp vc1 07/13 13:28 07/12 23:04 [facility] ER HOLD vc1 [facility] 07/13 13:28 07/12 23:04 ERHOLD- vc1 [facility] 07/14 02:49 07/12 16:55 Associated signs and symptoms: Pertinent negatives: abdominal pain, chest cp pain, confusion, seizure, cp
[2025-07-12] MEDS ORDERED: ONDANSETRON 4 MG/2 ML VIAL IV PRN (20:42)
[2025-07-12] MEDS ORDERED: ACETAMINOPHEN 325 MG TABLET PO PRN (20:42)
--- NOTE | 2025-07-12 20:42 | P.HP ---
Certification for Inpatient Patient admitted to: Inpatient With expected LOS: >2 Midnights Practitioner: I am a practitioner with admitting privileges, knowledge of patient current condition, hospital course, and medical plan of care. Services: Services provided to patient in accordance with Admission requirements found in Title 42 Section 412.3 of the Code of Federal Regulations Patient History Date of Service: 07/12/25 Reason for admission: Syncope History of Present Illness: 75 yrs old Male with past medical history of dementia, diabetes, hypertension, Parkinson's disease, schizophrenia, bipolar disorder, who is a jail resident who was transferred to ER with syncopal episode and had a fall. Patient is a poor historian hence most of the history is obtained via chart review and also talking to the ER physician. Apparently patient has been having dizziness for a few days and suffered a fall today and was brought to ER. Patient denies any fall patient denies any pain at all. No chest pain or shortness of breath. No fever or chills. Patient was assessed in the ER and was admitted for further management of orthostatic hypotension Allergies No Known Allergies Allergy (Verified 03/04/23 01:13) Home medications list reviewed: Yes Home Medications: Carbidopa/Levodopa 25-100 [Sinemet 25-100*] 2 tab PO QID 03/04/19 Memantine HCl [Namenda] 1 tab PO BID 03/04/19 Rivastigmine Tartrate [Rivastigmine] 1 tab PO BID 03/04/19 Acetaminophen [Tylenol] 2 tab PO Q4H PRN 03/04/23 Aspirin 81 mg PO DAILY 03/04/23 Clopidogrel Bisulfate [Plavix] 75 mg PO DAILY 03/04/23 Divalproex Sodium 2 tab PO BID 03/04/23 Lactulose 30 ml PO TID 03/04/23 Quetiapine Fumarate [Seroquel] 75 mg PO DAILY 03/04/23 Quetiapine Fumarate [Seroquel] 150 mg PO BEDTIME 03/04/23 Amlodipine [Norvasc*] 10 mg PO DAILY 12/18/24 Cholecalciferol (Vitamin D3) [Vitamin D 5,000 IU Cap*] 5,000 unit PO DAILY 12/18/24 Dicyclomine HCl 20 mg PO Q8HP PRN 12/18/24 Dulaglutide [Trulicity] 3 mg SQ EVERY 7TH DAY 12/18/24 Duloxetine HCl [Cymbalta] 120 mg PO BEDTIME 12/18/24 Famotidine [Pepcid] 20 mg PO DAILY 12/18/24 Fluticasone Propionate 1 spray NOREEN DAILY 12/18/24 Furosemide [Lasix] 20 mg PO DAILY 12/18/24 Gabapentin 200 mg PO TID 12/18/24 Glucagon [Glucagon Emergency Kit] 1 mg IJ PRN PRN 12/18/24 Loratadine [Claritin*] 10 mg PO DAILY 12/18/24 Losartan Potassium 25 mg PO DAILY 12/18/24 Menthol [Biofreeze] 118 ml TP BIDP PRN 12/18/24 Ropinirole HCl 0.5 mg PO TID 12/18/24 Sennosides/Docusate Sodium [Senna Plus 8.6-50 mg Tablet] 1 each PO BID 12/18/24 Trazodone [Desyrel*] 25 mg PO BEDTIME 12/18/24 Zinc Gluconate [Zinc] 50 mg PO DAILY 12/18/24 Metformin ER [Glucophage ER*] 500 mg PO DAILY #30 tab.sa 12/20/24 glyBURIDE [Glyburide] 5 mg PO BIDAC #60 tab 12/20/24 predniSONE [Deltasone] 20 mg PO DAILY #5 tab 12/20/24 - Past Medical/Surgical History Diabetic: Yes Past Medical History: Reviewed- Non-Contributory -: Diabetes mellitus type 2 -: Hypertension -: Parkinson's -: Bipolar disorder -: Dementia Past Surgical History: Reviewed- Non-Contributory -: Arm surgery -: Left knee replacement Psychosocial/ Personal History: Patient is . Lives at home. Patient has home care provider. - Family History Mother -: Other (see notes) - Social History Smoking Status: Never smoker Alcohol use: No CD- Drugs: No Caffeine use: Yes Review of Systems is unable to be obtained Physical Examination - Vital Signs Temperature: 98.2 F Blood Pressure: 106/60 Pulse: 96 Respirations: 18 Pulse Ox (%): 94 - Physical Exam General: Alert, Cooperative, Mild distress, Confused HEENT: Atraumatic, Normocephalic Neck: Supple Respiratory: Clear to auscultation bilaterally, Normal air movement Cardiovascular: Regular rate/rhythm, Normal S1 S2 Capillary refill: <2 Seconds Gastrointestinal: Soft and benign, W/out hepatosplenomegaly Musculoskeletal: No clubbing Integumentary: No rashes Neurological: Other (Alert awake nonfocal) Lymphatics: No axilla or inguinal lymphadenopathy - Studies Laboratory Data (last 24 hrs) 07/12/25 07/12/25 07/12/25 17:10 17:10 17:10 WBC 8.10 Hgb 11.9 L Hct 34.5 L Plt Count 210 PT 12.8 INR 1.14 Sodium 134 L Potassium 4.1 BUN 36 H Creatinine 1.33 H Glucose 136 H Magnesium 2.0 Total Bilirubin 0.5 AST 14 L ALT < 14 L Alkaline Phosphatase 66 Assessment and Plan - Plan Orthostatic hypotension Dehydration Dementia Schizophrenia Bipolar disorder Hypertension IV hydration Started on midodrine Monitor closely on telemetry Hyperlipidemia Continue statin CKD stage II Monitor renal parameters Electrolytes monitor and replace accordingly Diabetes Insulin sliding scale Accu-Chek before every meal and at bedtime Dementia History of schizophrenia Bipolar disorder Continue home medications and titrate as needed GI/DVT prophylaxis Advanced directive full code Discharge Plan: Home Plan to discharge in: 48 Hours - Advance Directives Does patient have a Living Will: Yes Does patient have a Durable POA for Healthcare: No - Code Status/Comfort Care Code Status: Full Code Time Spent Managing Pts Care (In Minutes): 48
[2025-07-12] MEDS ORDERED: NA CHLORIDE 0.9% 1,000 ML ONE (23:32)
[2025-07-12] MEDS: NA CHLORIDE 0.9% 1,000 ML IV SCH (23:52)
[2025-07-12] MEDS ORDERED: MORPHINE 2 MG/ML SYR IV PRN (23:55)
[2025-07-13] MEDS ORDERED: HYDROCODONE/APAP 5/325 MG TAB ONE ×2 (01:08→13:50)
[2025-07-13] MEDS: HYDROCODONE/APAP 5/325 MG TAB PO PRN (01:22)
[2025-07-13 01:43] VITALS: BMI 30.1
[2025-07-13 01:46] LABS: Sqamous Epithelial <5 /HPF (None Seen); Urine Culture Reflex Order NOT NEEDED; Urine Microscopic Reflex YN ORDER UMIC
[2025-07-13] MEDS: NA CHLORIDE 0.9% 1,000 ML IV SCH (05:06)
[2025-07-13] MEDS: MIDODRINE HCL 5 MG TABLET PO SCH (06:00)
[2025-07-13] MEDS ORDERED: MIDODRINE HCL 5 MG TABLET ONE ×2 (06:10→13:51)
[2025-07-13 07:42] LABS: Absolute Lymphocytes (CBC) 1.8 K/uL (0.7-4.9); Hematocrit 35.9 % (39.6-49.0); Hemoglobin 12.4 g/dL (13.6-17.9); MCH 31.7 pg (27.0-35.0); MCHC 34.4 g/dL (32.0-36.0); MCV 92.2 fL (80-100); MPV 7.2 fL (7.6-11.3); Nucleated RBC Absolute Count 0.0 (0-0); Nucleated Red Blood Cells % 0.0 % (0-0); RBC Red Blood Cell Count 3.90 M/uL (4.33-5.43); White Blood Count 8.60 thou/uL (4.3-10.9)
[2025-07-13 07:59] LABS: Anion Gap 9.3 mEq/L (5.0-15.0); BUN Blood Urea Nitrogen 28 mg/dL (7-18); Glucose Level 90 mg/dL (74-106); Potassium 4.3 mEq/L (3.5-5.1)
[2025-07-13 08:00] LABS: AST/SGOT 18 U/L (15-37); Albumin 2.6 g/dL (3.4-5.0); Albumin/Globulin Ratio 0.7 (1.1-1.8); Alkaline Phosphatase 72 U/L (45-117); Globulin 4.0 g/dL (2.3-3.5)
[2025-07-13 08:01] LABS: ALT/SGPT < 14 U/L (16-61)
[2025-07-13] MEDS: GABAPENTIN 100 MG CAP PO SCH (09:00)
[2025-07-13] MEDS ORDERED: GABAPENTIN 100 MG CAP ONE (10:09)
[2025-07-13] MEDS ORDERED: NA CHLORIDE 0.9% 1,000 ML ONE (14:10)
--- NOTE | 2025-07-13 15:27 | P.PN ---
Subjective Date of Service: 07/13/25 Chief Complaint: Syncope Subjective: Improving (Patient seen in bed. He was in no distress. Orthostatic vitals ordered. He is waiting for echocardiogram) Physical Examination - Vital Signs Temperature: 98.4 F Blood Pressure: 126/84 Pulse: 87 Respirations: 16 Pulse Ox (%): 95 - Physical Exam General: Alert, In no apparent distress, Cooperative HEENT: Atraumatic, Normocephalic Respiratory: Clear to auscultation bilaterally, Normal air movement Cardiovascular: No edema, Normal pulses, Regular rate/rhythm, Normal S1 S2 Neurological: Normal speech - Studies Laboratory Data (last 24 hrs) 07/12/25 07/12/25 07/12/25 17:10 17:10 17:10 WBC 8.10 Hgb 11.9 L Hct 34.5 L Plt Count 210 PT 12.8 INR 1.14 Sodium 134 L Potassium 4.1 BUN 36 H Creatinine 1.33 H Glucose 136 H Magnesium 2.0 Total Bilirubin 0.5 AST 14 L ALT < 14 L Alkaline Phosphatase 66 Assessment And Plan - Plan Assessment Patient is 75-year-old male with a known past medical history of Parkinson's disease. He was admitted after he presented with syncope. at bedside confirmed that this was a real syncopal event. Patient also has a history of new zoster infection manifested by left flank shingles. Syncope Hypertensive urgency Parkinson's disease Type 2 diabetes mellitus Varicella zoster/shingles Dementia Bipolar disorder Schizophrenia Plan: Patient is waiting to have 2D echo Orthostatic vitals negative IV fluid and Midodrine discontinued due to severely elevated blood pressure. SBP more than 200 Continue telemetry monitoring PT/OT/SOFTWARE PROJECT ENGINEER Resume rest of home medication especially for Parkinson's disease and psychiatric illness
[2025-07-13] MEDS: MORPHINE 4 MG/ML SYR IV PRN (16:22)
[2025-07-13] MEDS: DIPHENHYDRAMINE 50 MG/ML VIAL IV ONE (16:51)
[2025-07-13] MEDS: HYDRALAZINE HCL 20 MG/ML VIAL IV PRN (16:51)
[2025-07-13 21:41] VITALS: O2SAT 95
[2025-07-13] MEDS: DIPHENHYDRAMINE 25 MG TAB/CAP PO PRN (23:04)
[2025-07-14] MEDS ORDERED: MENTHOL TOP PRN (04:11)
[2025-07-14] MEDS ORDERED: DICYCLOMINE HCL 10 MG CAP PO PRN (04:11)
[2025-07-14] MEDS ORDERED: HOME MED 1 EA UNK (Acetaminophen [Tylenol] 325 MG Capsule) PO PRN (07:19)
[2025-07-14] MEDS ORDERED: ACETAMINOPHEN 325 MG TABLET PO PRN (07:36)
[2025-07-14] MEDS: CARBIDOPA/LEVODOPA 25/100 TAB PO SCH (08:53)
[2025-07-14] MEDS: GABAPENTIN 100 MG CAP PO SCH (08:53)
[2025-07-14] MEDS: predniSONE 20 MG TAB PO SCH (08:53)
[2025-07-14] MEDS: MEMANTINE HCL 10 MG TABLET PO SCH (08:53)
[2025-07-14] MEDS: RIVASTIGMINE TARTRATE 1.5 MG PO SCH (08:53)
[2025-07-14] MEDS: METFORMIN ER 500 MG TAB PO SCH (08:54)
[2025-07-14] MEDS: VALACYCLOVIR 500 MG TAB PO SCH (08:54)
[2025-07-14] MEDS: DIVALPROEX DR 500MG TAB PO SCH (08:54)
[2025-07-14] MEDS: AMLODIPINE 10 MG TAB PO SCH (08:54)
[2025-07-14] MEDS: QUETIAPINE 25 MG TAB PO SCH (08:54)
[2025-07-14] MEDS: FUROSEMIDE 20 MG TABLET PO SCH (08:55)
[2025-07-14] MEDS: LORATADINE 10 MG TAB PO SCH (08:55)
[2025-07-14] MEDS: ZINC SULFATE 220 MG CAP PO SCH (08:55)
[2025-07-14] MEDS: LOSARTAN POTASSIUM 50 MG TABLET PO SCH (08:55)
[2025-07-14] MEDS: VITAMIN D 5,000 UNIT CAP PO SCH (08:55)
[2025-07-14] MEDS: ROPINIROLE HCL 0.25 MG TAB PO SCH (08:55)
[2025-07-14] MEDS: FAMOTIDINE 20 MG TAB PO SCH (08:55)
[2025-07-14] MEDS: CLOPIDOGREL 75 MG TABLET PO SCH (08:55)
[2025-07-14] MEDS: ASPIRIN 81 MG CHEWABLE TABLET PO SCH (08:55)
[2025-07-14] MEDS: FLUTICASONE 50MCG NASAL SPRAY NAS SCH (08:56)
[2025-07-14] MEDS: LACTULOSE 20 GM/30 ML UCUP PO SCH (08:56)
[2025-07-14] MEDS ORDERED: ZINC GLUCONATE 50 MG TAB PO SCH (09:00)
[2025-07-14] MEDS ORDERED: GABAPENTIN 100 MG CAP PO SCH (09:00)
[2025-07-14 12:30] VITALS: TEMP 97.7
--- NOTE | 2025-07-14 15:46 | P.DS ---
Admission Date: 07/12/25 Discharge Date: 07/14/25 Disposition: ROUTINE DISCHARGE Discharge Condition: GOOD Reason for Admission: Syncope Hospital Course: Patient was admitted after he presented with syncope. confirmed these were syncopal events. Was kept under observation. No events on telemetry. His 2D echo revealed preserved EF and grade 1 diastolic dysfunction. Patient stated to work with therapy. At this time, he is at baseline. He is medically cleared for discharge. Patient has Parkinson's disease. His blood pressure has been labile during this stay. Because of this, he will have a degree of autonomic dysfunction. There was no notable events reported during the stay. His hospital course has been unremarkable. Vital Signs/Physical Exam: Temp Pulse Resp BP Pulse Ox 97.7 F 97 H 18 145/71 H 97 07/14/25 12:00 07/14/25 12:00 07/14/25 12:00 07/14/25 12:00 07/14/25 12:00 General: In no apparent distress, Cooperative HEENT: Atraumatic, Normocephalic Respiratory: Clear to auscultation bilaterally, Normal air movement Cardiovascular: No edema, Normal pulses, Regular rate/rhythm, Normal S1 S2 Neurological: Normal speech Laboratory Data at Discharge: WBC 8.60 thou/uL (4.3-10.9) 07/13/25 07:35 Hgb 12.4 g/dL (13.6-17.9) L 07/13/25 07:35 Hct 35.9 % (39.6-49.0) L 07/13/25 07:35 Plt Count 225 thou/uL (152-406) 07/13/25 07:35 PT 12.8 SECONDS (10-13.0) 07/12/25 17:10 INR 1.14 07/12/25 17:10 Sodium 138 mEq/L (136-145) 07/13/25 07:35 Potassium 4.3 mEq/L (3.5-5.1) 07/13/25 07:35 BUN 28 mg/dL (7-18) H 07/13/25 07:35 Creatinine 0.85 mg/dL (0.70-1.30) 07/13/25 07:35 Glucose 90 mg/dL (74-106) 07/13/25 07:35 Magnesium 2.0 mg/dL (1.6-2.4) 07/12/25 17:10 Total Bilirubin 0.4 mg/dL (0.2-1.0) 07/13/25 07:35 AST 18 U/L (15-37) 07/13/25 07:35 ALT < 14 U/L (16-61) L 07/13/25 07:35 Alkaline Phosphatase 72 U/L (45-117) 07/13/25 07:35 Home Medications: Carbidopa/Levodopa 25-100 [Sinemet 25-100*] 2 tab PO QID 03/04/19 Memantine HCl [Namenda] 1 tab PO BID 03/04/19 Rivastigmine Tartrate [Rivastigmine] 1 tab PO BID 03/04/19 Acetaminophen [Tylenol] 2 tab PO Q4H PRN 03/04/23 Aspirin 81 mg PO DAILY 03/04/23 Clopidogrel Bisulfate [Plavix] 75 mg PO DAILY 03/04/23 Divalproex Sodium 2 tab PO BID 03/04/23 Lactulose 30 ml PO TID 03/04/23 Quetiapine Fumarate [Seroquel] 75 mg PO DAILY 03/04/23 Quetiapine Fumarate [Seroquel] 150 mg PO BEDTIME 03/04/23 Amlodipine [Norvasc*] 10 mg PO DAILY 12/18/24 Cholecalciferol (Vitamin D3) [Vitamin D 5,000 IU Cap*] 5,000 unit PO DAILY 12/18/24 Dicyclomine HCl 20 mg PO Q8HP PRN 12/18/24 Dulaglutide [Trulicity] 3 mg SQ EVERY 7TH DAY 12/18/24 Duloxetine HCl [Cymbalta] 120 mg PO BEDTIME 12/18/24 Famotidine [Pepcid] 20 mg PO DAILY 12/18/24 Fluticasone Propionate 1 spray NOREEN DAILY 12/18/24 Furosemide [Lasix] 20 mg PO DAILY 12/18/24 Gabapentin 200 mg PO TID 12/18/24 Glucagon [Glucagon Emergency Kit] 1 mg IJ PRN PRN 12/18/24 Loratadine [Claritin*] 10 mg PO DAILY 12/18/24 Losartan Potassium 25 mg PO DAILY 12/18/24 Menthol [Biofreeze] 118 ml TP BIDP PRN 12/18/24 Ropinirole HCl 0.5 mg PO TID 12/18/24 Sennosides/Docusate Sodium [Senna Plus 8.6-50 mg Tablet] 1 each PO BID 12/18/24 Trazodone [Desyrel*] 25 mg PO BEDTIME 12/18/24 Zinc Gluconate [Zinc] 50 mg PO DAILY 12/18/24 Metformin ER [Glucophage ER*] 500 mg PO DAILY #30 tab.sa 12/20/24 glyBURIDE [Glyburide] 5 mg PO BIDAC #60 tab 12/20/24 predniSONE [Prednisone*] 20 mg PO DAILY #5 tab 12/20/24 Insulin Glargine,Hum.rec.anlog [Lantus] 6 unit SQ BEDTIME 07/13/25 Rifaximin [Xifaxan] 550 mg PO BID 07/13/25 Valacyclovir HCl [Valtrex] 1,000 mg PO Q8HR 07/13/25 Followup: NONE,NONE [Primary Care Provider] -
[2025-07-14 16:42] VITALS: BP 127/72
[2025-07-14] MEDS ORDERED: QUETIAPINE 100MG TAB PO SCH (21:00)
[2025-07-14] MEDS ORDERED: TRAZODONE 50 MG TABLET PO SCH (21:00)
[2025-07-14] MEDS ORDERED: DULOXETINE 30 MG CAP PO SCH (21:00)
[2025-07-14] MEDS ORDERED: INSULIN GLARGINE 100 UNIT/ML SQ SCH (21:00)
[2025-07-16] MEDS ORDERED: DULAGLUTIDE 3 MG/0.5 ML SQ SCH (09:00)
== END 2025-07-14 19:41 | disposition home or self-care (01) | DRG 312 ==
LOC: ER 16:38 → ERHOLD 20:42 → 2ND 07-13 14:19
PROVIDERS: ADMIT Family Medicine; ATTEND Internal Medicine
DX: I95.1 Orthostatic hypotension (principal); I16.0 Hypertensive urgency; F20.9 Schizophrenia, unspecified; E86.0 Dehydration; K59.00 Constipation, unspecified; F31.9 Bipolar disorder, unspecified; I12.9 Hypertensive chronic kidney disease with stage 1 through stage 4 chronic kidney disease, or unspecified chronic kidney disease; N18.2 Chronic kidney disease, stage 2 (mild); E11.22 Type 2 diabetes mellitus with diabetic chronic kidney disease; G20.A1 Parkinson's disease without dyskinesia, without mention of fluctuations; F03.90 Unspecified dementia, unspecified severity, without behavioral disturbance, psychotic disturbance, mood disturbance, and anxiety; Z79.82 Long term (current) use of aspirin; Z79.02 Long term (current) use of antithrombotics/antiplatelets; Z79.52 Long term (current) use of systemic steroids; Z79.899 Other long term (current) drug therapy; Z96.652 Presence of left artificial knee joint
CPT/HCPCS: 36415; 70450; 71045; 71250; 72125; 74176; 80048; 80053; 80076; 81001; 82947; 83605; 83735; 83880; 84484; 85025; 85610; 93005; 93306; 94760; 97161; 97165; 97530; 99283; 99285; J0360; J1200; J7030; J7040; J7512